=== PATIENT | female | born 1980 | race Caucasian/White ===

== ENCOUNTER 2017-07-05 21:18 | Inpatient (IN) | payer OTHER ==
--- NOTE | 2017-07-05 21:16 | HP ---
COWS - Scale Resting Pulse: 0= MA 80 or Below Sweatin=Flushed/Facial Moisture Restless Observation: 1= Difficult to Sit Still Pupil Size: 1= Pupils >than Normal Bone or Joint Aches: 2= Severe Diffuse Aches Runny Nose/ Eye Tearin= Constantly Teary/Runny GI Upset > 30mins: 2= Nausea/Diarrhea (diarrhea x 3, no vomiting) Tremor Observation: 2= Slight Tremor Visible Yawning Observation: 0= None Anxiety or Irritability: 4=Extreme Anxiety Goose Flesh Skin: 0=Smooth Skin COWS Score: 18 Admission [facility] Chief Complaint: Opiate withdrawal symptoms Allergies/Adverse Reactions: Allergies Allergy/AdvReac Type Severity Reaction Status Date / Time No Known Drug Allergies Allergy Verified 06/02/17 18:38 erythromycin base AdvReac Severe Vomiting Verified 06/02/17 18:38 History of Present Illness: 36 years old female with a long history of opiate, sedative and hypnotic dependence is admitted to detox. Patient has been in previous detox, last was at [facility] 06/02/2017. Patient has medical history of AIDS (last CD4 count was 31) , Hep C, anemia, chlamydia, anxiety and depression. Denies suicidal ideation at this time. Patient on Methadone therapy at [facility] and methadone dose is 70mg tablet oral daily. As per patient, last day medicated with methadone was 2016 and the dose was 70mg. Dose is yet to be confirmed by the nurse. Patient appears dehydrated with poor skin turgor and dry mucous membrane. Exam Limitations: No Limitations - Ebola screening Have you traveled outside of the country in the last 21 days: No Have you had contact with anyone from an Ebola affected area: No Have you been sick,other than usual withdrawal symptoms: No - Review of Systems Constitutional: Chills, Loss of Appetite, Malaise, Night Sweats, Changes in sleep, Weakness EENT: reports: Tearing, Nose Congestion, Sinus Pressure Respiratory: reports: No Symptoms reported Cardiac: reports: No Symptoms Reported GI: reports: Diarrhea (x 3), Poor Appetite, Poor Fluid Intake, Abdominal cramping : reports: No Symptoms Reported Musculoskeletal: reports: Back Pain, Muscle Pain, Muscle Weakness Integumentary: reports: Dryness, Flushing Neuro: reports: Headache, Tingling, Tremors, Weakness Endocrine: reports: Flushing Hematology: reports: Anemia Psychiatric: reports: Agitated, Anxious, Depressed Other Systems: Reviewed and Negative Patient History - Patient Medical History Hx Anemia: Yes Hx Asthma: No Hx Chronic Obstructive Pulmonary Disease (COPD): No Hx Cancer: No Hx Cardiac Disorders: No Hx Congestive Heart Failure: No Hx Hypertension: No Hx Hypercholesterolemia: No Hx Pacemaker: No HX Cerebrovascular Accident: No Hx Seizures: No Hx Dementia: No Hx Diabetes: No Hx Gastrointestinal Disorders: No Hx Liver Disease: Yes (Hep C) Hx Genitourinary Disorders: No Hx Sexually Transmitted Disorders: Yes (AIDS, Chlamydia) Hx Renal Disease (ESRD): No Hx Thyroid Disease: No Hx Human Immunodeficiency Virus (HIV): Yes (diagnosed September 2014) Hx Hepatitis C: Yes (Not treated) Hx Depression: Yes Hx Suicide Attempt: No (Denies suicidal ideation) Hx Bipolar Disorder: No Hx Schizophrenia: No - Patient Surgical History Past Surgical History: Yes Hx Neurologic Surgery: No Hx Cataract Extraction: No Hx Cardiac Surgery: No Hx Lung Surgery: No Hx Breast Surgery: No Hx Breast Biopsy: No Hx Abdominal Surgery: No Hx Appendectomy: Yes (Surgery 03/29) Hx Cholecystectomy: No Hx Genitourinary Surgery: No Hx Section: No Hx Orthopedic Surgery: No Hx Hysterectomy: No Anesthesia Reaction: No - PPD History Previous Implant?: Yes Documented Results: Negative w/proof Implanted On Prior [facility] Admission?: Yes Date: 06/04/17 PPD to be Administered?: No - Reproductive History Patient is a Female of Child Bearing Age (11 -55 yrs old): Yes Last Menstrual Period: 06/28/17 Patient : No - Smoking Cessation Smoking history: Current every day smoker Have you smoked in the past 12 months: Yes Aproximately how many cigarettes per day: 10 Cigars Per Day: 0 Hx Chewing Tobacco Use: No Initiated information on smoking cessation: Yes 'Breaking Loose' booklet given: 07/05/17 - Substance & Tx. History Hx Alcohol Use: No Hx Substance Use: Yes Substance Use Type: Cocaine, Heroin, Opiates Hx Substance Use Treatment: Yes ([facility] 05/2017) - Substances Abused Benzodiazepine (Klonopin) Route: Oral Frequency: Daily Amount used: 8-12mg Age of first use: 30 Date of Last Use: 07/05/17 Alprazolam (Xanax) Route: Oral Frequency: Daily Amount used: 6-8mg Age of first use: 30 Date of Last Use: 07/04/17 Cocaine Route: Injection Frequency: Daily Amount used: 4 bags Age of first use: 21 Date of Last Use: 07/05/17 Family Disease History - Family Disease History Family Disease History: CA: Mother (Breast Ca and Hep C), Other: Father (HIV, ), Mother Admission Physical Exam [facility] - Physical General Appearance: Yes: Moderate Distress, Tremorous, Irritable, Sweating, Anxious HEENTM: Yes: EOMI, Normal Voice, BRIEN Respiratory: Yes: Lungs Clear, Normal Breath Sounds, No Respiratory Distress Neck: Yes: Supple, Other Breast: Yes: Breast Exam Deferred Cardiology: Yes: Regular Rhythm, Regular Rate, S1, S2 Abdominal: Yes: Normal Bowel Sounds, Soft Genitourinary: Yes: Within Normal Limits Back: Yes: Normal Inspection Musculoskeletal: Yes: Back pain, Muscle Pain, Muscle weakness Extremities: Yes: Tremors, Swelling (left hand from iv drug injection) Neurological: Yes: Alert, Normal Mood/Affect Integumentary: Yes: Dry, Track Sanchez Lymphatic: Yes: Within Normal Limits - Addiitonal Findings: neck and left hand - Diagnostic (1) Hep C w/o coma, chronic Current Visit: No Status: Chronic (2) AIDS Current Visit: No Status: Chronic (3) Nicotine dependence Current Visit: No Status: Chronic Qualifiers: Nicotine product type: cigarettes Substance use status: in withdrawal Qualified Code(s): F17.213 - Nicotine dependence, cigarettes, with withdrawal (4) Sedative, hypnotic or anxiolytic dependence with withdrawal, uncomplicated Current Visit: No Status: Chronic (5) Methadone maintenance therapy patient Current Visit: No Status: Chronic Comment: 40 mg verification pending (6) Depression (emotion) Current Visit: No Status: Chronic Qualifiers: Depression Type: dysthymia Qualified Code(s): F34.1 - Dysthymic disorder Cleared for Admission [facility] - Detox or Rehab [facility] Level of Care: Medically Managed Detox Regimen/Protocol: Valium [facility] Breath Alcohol Content Breath Alcohol Content: 0 Vital Signs - Vital Signs Vital Signs Refused: No Temperature Source: Oral Pulse Rate: 78 Respiratory Rate: 17 Blood Pressure: 118/75 BP Location: Left Arm Blood Pressure Position: Sitting - Height Height: 5 ft 5 in - Weight Weight: 151 lb Weight Measurement Method: Standing Scale Body Mass Index (BMI): 25.1 Urine Pregancy Test - Test Device Lot Number: [id number] Expiration Date: 02/09/19 - Control Horizontal Line in Upper Control Window?: No - Result Urine Test Results: Negative- NO Line Present Urine Drug Screen - Test Device Lot Number: [id number] Expiration Date: 04/11/19 - Control Is Test Valid: Yes - Results Drug Screen Negative: No Urine Drug Screen Results: BERNADETTE-Cocaine, OPI-Opiates, BZO-Benzodiazepines, MTD- Methadone, OXY-Oxycodone
[2017-07-05] MEDS ORDERED: NICOTINE POLACRILEX 2 MG GUM BC PRN (21:50)
[2017-07-05] MEDS ORDERED: P-EPHED 60MG/TRIPROLIDI 2.5MG TABLET PO PRN (21:50)
[2017-07-05] MEDS ORDERED: MAG HYDROX/AL HYDROX/SIMETH 30 ML UNIT-DOSE CUP PO PRN (21:50)
[2017-07-05] MEDS ORDERED: MENTHOL/PHENOL 1 EACH UD MM PRN (21:50)
[2017-07-05] MEDS ORDERED: LOPERAMIDE HCL 2 MG CAPSULE PO PRN (21:50)
[2017-07-05] MEDS ORDERED: diazePAM 5 MG TABLET PO ONE (21:50)
[2017-07-05] MEDS ORDERED: MAGNESIUM HYDROX 2400MG/30ML ORAL SUSPENSION 30 ML CUP PO PRN (21:50)
[2017-07-05] MEDS ORDERED: guaiFENesin/D-METHORPHAN HB 10 ML UNIT-DOSE CUPS PO PRN (21:50)
[2017-07-05] MEDS ORDERED: MAGNESIUM CITRATE 300 ML BOTTLE PO PRN (21:50)
[2017-07-05 22:02] VITALS: BMI 25.1
[2017-07-05] MEDS: diazePAM 5 MG TABLET PO SCH (22:55)
[2017-07-06] MEDS: diazePAM 5 MG TABLET PO SCH ×4 (00:40→22:12)
[2017-07-06] MEDS: THIAMINE HCL 100 MG TABLET (FP) PO SCH ×2 (00:41→22:12)
[2017-07-06] MEDS ORDERED: AZITHROMYCIN 600 MG TABLET PO SCH (10:00)
[2017-07-06] MEDS: PRENATAL VITAMINS W/ FOLIC ACID TABLET (FP) PO SCH (10:10)
[2017-07-06] MEDS: NICOTINE 14 MG/24 HOURS TOPICAL PATCH TD SCH (10:10)
[2017-07-06] MEDS: SULFAMETHOXAZOLE/TRIMETHOPRIM 800MG/160MG D.S. TABLET PO SCH (10:12)
[2017-07-06] MEDS ORDERED: METHADONE HCL 10 MG TABLET PO ONE (10:19)
--- NOTE | 2017-07-06 10:27 | PN ---
S CIWA - CIWA Score Nausea/Vomitin Muscle Tremors: 2 Anxiety: 3 Agitation: 2 Paroxysmal Sweats: 3 Orientation: 0-Oriented Tacttile Disturbances: 2-Mild Itch/Numbness/Burn Auditory Disturbances: 0-None Visual Disturbances: 0-None Headache: 0-None Present CIWA-Ar Total Score: 14 BHS Progress Note (SOAP) Subjective: interrupted sleep, sweats, achy Objective: 07/06/17 10:23 Vital Signs Temperature 97.2 F L 07/06/17 09:58 Pulse Rate 85 07/06/17 09:58 Respiratory Rate 18 07/06/17 09:58 Blood Pressure 100/89 07/06/17 09:58 O2 Sat by Pulse Oximetry (%) pending labs 07/06/17 10:24 pt aox3 restless Assessment: 07/06/17 10:24 withdrawal sx's \ aids otp 07/06/17 10:27 Plan: cont. detox increase fluids methadone 70mg /d ( pt has bottle from [facility] date dose 70mg/d will offically verify dose in am with OTP)
[2017-07-06] MEDS ORDERED: METHADONE 40 MG, METHADONE 30 MG PO ONE (11:10)
[2017-07-06] MEDS ORDERED: METHADONE HCL 40 MG DISPERSABLE TABLET ONE (11:14)
[2017-07-06] MEDS ORDERED: METHADONE HCL 10 MG TABLET ONE (11:14)
--- NOTE | 2017-07-06 11:16 | CONSULT ---
[facility] Psychiatric Consult - Data Date of interview: 07/06/17 Admission source: [facility] Identifying data: This is 36 years old female with psychiatric hospitalization history intoxicated with: Methadone, Xanax and Nicotine Substance Abuse History: Smoking history: Current every day smoker. Have you smoked in the past 12 months: Yes. Aproximately how many cigarettes per day: 10. Cigars Per Day: 0. Hx Chewing Tobacco Use: No. Initiated information on smoking cessation: Yes. 'Breaking Loose' booklet given: 07/05/17. - Substance & Tx. History. Hx Alcohol Use: No. Hx Substance Use: Yes. Substance Use Type : Cocaine, Heroin, Opiates. Hx Substance Use Treatment: Yes ([facility] 05/2017). - Substances Abused. Benzodiazepine (Klonopin). Route: Oral. Frequency: Daily. Amount used: 8-12mg. Age of first use: 30. Date of Last Use: . Alprazolam (Xanax). Route: Oral. Frequency: Daily. Amount used: 6- 8mg. Age of first use: 30. Date of Last Use: 07/04/17. Cocaine. Route: Injection. Frequency: Daily. Amount used: 4 bags. Age of first use: 21. Date of Last Use: 07/05/17 Medical History: HepC+, AIDs, MMTP 70mg /day Psychiatric History: Patient reports history of depression, reports unclear psychiatric admission on morer then 10 years ago Physical/Sexual Abuse/Trauma History: Denies Additional Comment: Observation. Detox Unit Care Protocol Mental Status Exam - Mental Status Exam Alert and Oriented to: Person Patient Appearance: Unkempt Mood: Sad Affect: Mood Congruent Patient Behavior: Cooperative Speech Pattern: Appropriate Voice Loudness: Normal Thought Process: Circumstantial Thought Disorder: Being Controlled Hallucinations: Denies Suicidal Ideation: Denies Homicidal Ideation: Denies Insight/Judgement: Fair Sleep: Difficulty falling asleep Appetite: Weight loss Muscle strength/Tone: Mild Hypotonicity Gait/Station: Shuffling Additional Comments: Observation. Detox Unit Care Protocol Psychiatric Findings - Problem List ([place] 1, 2,3) (1) Depression (emotion) Current Visit: No Status: Chronic Qualifiers: Depression Type: dysthymia Qualified Code(s): F34.1 - Dysthymic disorder (2) Methadone maintenance therapy patient Current Visit: No Status: Chronic Comment: 40 mg verification pending (3) Nicotine dependence Current Visit: No Status: Chronic Qualifiers: Nicotine product type: cigarettes Substance use status: in withdrawal Qualified Code(s): F17.213 - Nicotine dependence, cigarettes, with withdrawal (4) Sedative, hypnotic or anxiolytic dependence with withdrawal, uncomplicated Current Visit: No Status: Chronic (5) Drug-induced mood disorder Current Visit: No Status: Suspected - Initial Treatment Plan Initial Treatment Plan: Observation. Detox Unit Care Protocol
[2017-07-06 11:25] LABS: MCH 31.4 pg (25.7-33.7); MCHC 32.5 g/dl (32.0-36.0); MEAN CELL VOLUME 96.5 fl (80-96); MEAN PLT VOLUME 7.8 fl (7.5-11.1); PLATELET COUNT 240 K/MM3 (134-434); RDW 17.7 % (11.6-15.6); WHITE BLOOD COUNT 4.4 K/mm3 (4.0-10.0)
[2017-07-06 11:39] LABS: ALBUMIN 3.1 g/dl (3.4-5.0); ANION GAP 7 (8-16); CALCIUM 8.3 mg/dL (8.5-10.1); CO2 29 mmol/L (21-32); GLUCOSE,RANDOM 99 mg/dL (74-106)
[2017-07-06 11:43] LABS: ALK PHOS 75 U/L (45-117); BILIRUBIN,TOTAL 0.4 mg/dL (0.2-1.0); CREATININE 0.8 mg/dL (0.55-1.02); SGOT/AST 44 U/L (15-37); SGPT/ALT 54 U/L (12-78); TOT PROT 6.6 g/dl (6.4-8.2)
[2017-07-06] MEDS: EMTRICITABINE/TENOFOV ALAFENAM (DESCOVY) TABLET PO SCH (11:48)
[2017-07-06] MEDS: DOLUTEGRAVIR SODIUM 50 MG TABLET PO SCH (11:48)
[2017-07-06] MEDS: IBUPROFEN 400 MG TABLET (FP) PO PRN (14:09)
[2017-07-07] MEDS: diazePAM 5 MG TABLET PO PRN ×2 (02:54→15:36)
[2017-07-07] MEDS ORDERED: METHADONE HCL 40 MG DISPERSABLE TABLET PO SCH (06:00)
[2017-07-07] MEDS ORDERED: METHADONE HCL 10 MG TABLET PO SCH (09:00)
[2017-07-07] MEDS ORDERED: METHADONE HCL 40 MG DISPERSABLE TABLET ONE (09:21)
[2017-07-07] MEDS ORDERED: METHADONE HCL 10 MG TABLET ONE (09:22)
[2017-07-07] MEDS: IBUPROFEN 400 MG TABLET (FP) PO PRN ×3 (09:30→22:13)
[2017-07-07] MEDS ORDERED: AZITHROMYCIN 600 MG TABLET PO SCH (10:00)
[2017-07-07] MEDS: PRENATAL VITAMINS W/ FOLIC ACID TABLET (FP) PO SCH (10:10)
[2017-07-07] MEDS: diazePAM 5 MG TABLET PO SCH ×2 (10:10→22:11)
[2017-07-07] MEDS: NICOTINE 14 MG/24 HOURS TOPICAL PATCH TD SCH (10:10)
[2017-07-07] MEDS: METHADONE 40 MG, METHADONE 30 MG PO SCH (10:10)
[2017-07-07] MEDS: SULFAMETHOXAZOLE/TRIMETHOPRIM 800MG/160MG D.S. TABLET PO SCH (10:10)
[2017-07-07] MEDS: DOLUTEGRAVIR SODIUM 50 MG TABLET PO SCH (10:11)
[2017-07-07] MEDS: EMTRICITABINE/TENOFOV ALAFENAM (DESCOVY) TABLET PO SCH (10:11)
[2017-07-07] MEDS: ACETAMINOPHEN 325 MG TABLET (FP) PO PRN ×2 (11:51→19:19)
--- NOTE | 2017-07-07 13:21 | EKG ---
Test Reason : Blood Pressure : / mmHG Vent. Rate : 065 BPM Atrial Rate : 065 BPM P-R Int : 158 ms QRS Dur : 124 ms QT Int : 458 ms P-R-T Axes : 048 036 034 degrees QTc Int : 476 ms NORMAL SINUS RHYTHM NON-SPECIFIC INTRA-VENTRICULAR CONDUCTION DELAY BORDERLINE ECG WHEN COMPARED WITH ECG OF 06-JUL-2017 00:04, NO SIGNIFICANT CHANGE WAS FOUND Confirmed by MD Girish, Pastor ([id number]) on 07/07/2017 1:21:02 PM Referred By: Сергей White Confirmed By:aPstor Stout MD
--- NOTE | 2017-07-07 13:47 | PN ---
S CIWA - CIWA Score Nausea/Vomitin-Int. Nausea w/Dry Heave Muscle Tremors: None Anxiety: 4-Mod. Anxious/Guarded Agitation: 4-Moderately Restless Paroxysmal Sweats: 3 Orientation: 0-Oriented Tacttile Disturbances: 0-None Auditory Disturbances: 0-None Visual Disturbances: 0-None Headache: 3-Moderate CIWA-Ar Total Score: 18 BHS Progress Note (SOAP) Subjective: Sweating, headache, legs hurt, nausea, interrupted sleep Objective: 07/07/17 13:43 Last Vital Signs Temp Pulse Resp BP Pulse Ox 97.5 F L 75 18 117/67 07/07/17 11:05 07/07/17 11:05 07/07/17 11:05 07/07/17 11:05 Laboratory Tests 07/06/17 07/06/17 07/06/17 07:45 07:45 07:45 WBC 4.4 RBC 3.57 L Hgb 11.2 Hct 34.5 MCV 96.5 H MCH 31.4 MCHC 32.5 RDW 17.7 H D Plt Count 240 MPV 7.8 Sodium 142 Potassium 3.7 Chloride 106 Carbon Dioxide 29 Anion Gap 7 L BUN 6 L D Creatinine 0.8 Creat Clearance w eGFR > 60 Random Glucose 99 Calcium 8.3 L Total Bilirubin 0.4 D AST 44 H D ALT 54 D Alkaline Phosphatase 75 Total Protein 6.6 Albumin 3.1 L RPR Titer Nonreactive Labs noted Assessment: 07/07/17 13:43 Withdrawal symptoms Plan: Continue detox Methadone 70mg PO daily (MMTP) resumed Encouraged to drink lots of water
[2017-07-07 15:23] LABS: URINE APPEARANCE SLCLOUDY; URINE BILIRUBIN NEGATIVE (NEGATIVE); URINE BLOOD 3+ (NEGATIVE); URINE COLOR YELLOW; URINE GLUCOSE (UA) NEGATIVE (NEGATIVE); URINE KETONE NEGATIVE (NEGATIVE); URINE LEUK ESTERASE TRACE (NEGATIVE); URINE NITRITE NEGATIVE (NEGATIVE); URINE PROTEIN NEGATIVE (NEGATIVE)
[2017-07-07 15:59] LABS: URINE BACTERIA RARE /hpf (NONE SEEN); URINE MUCUS RARE; URINE RBC 27 /hpf (0-3); URINE WBC 6 /hpf (3-5)
[2017-07-07 20:49] LABS: URINE LEUK ESTERASE Negative (NEGATIVE)
[2017-07-07] MEDS: THIAMINE HCL 100 MG TABLET (FP) PO SCH (22:11)
[2017-07-08] MEDS ORDERED: METHADONE HCL 10 MG TABLET ONE (07:38)
[2017-07-08] MEDS ORDERED: METHADONE HCL 40 MG DISPERSABLE TABLET ONE (07:38)
[2017-07-08] MEDS: METHADONE 40 MG, METHADONE 30 MG PO SCH (07:40)
[2017-07-08] MEDS: diazePAM 5 MG TABLET PO PRN (07:43)
[2017-07-08] MEDS: IBUPROFEN 400 MG TABLET (FP) PO PRN (07:44)
--- NOTE | 2017-07-08 08:37 | PN ---
BHS Progress Note (SOAP) Subjective: nausea, sweats, interrupted sleep, anxeity, tremors Objective: 07/08/17 08:36 Vital Signs - 24 hr 07/07/17 07/07/17 07/07/17 11:05 14:00 17:00 Temperature 97.5 F L 97.5 F L 98.1 F Pulse Rate 75 72 77 Respiratory 18 18 16 Rate Blood Pressure 117/67 103/74 109/70 07/07/17 07/08/17 07/08/17 22:36 00:30 03:30 Temperature 98.2 F Pulse Rate 73 Respiratory 18 18 18 Rate Blood Pressure 119/72 07/08/17 05:38 Temperature 97.7 F Pulse Rate 66 Respiratory 16 Rate Blood Pressure 109/64 Laboratory Tests 07/06/17 07/06/17 07/06/17 00:32 07:45 07:45 WBC 4.4 RBC 3.57 L Hgb 11.2 Hct 34.5 MCV 96.5 H MCH 31.4 MCHC 32.5 RDW 17.7 H D Plt Count 240 MPV 7.8 Sodium 142 Potassium 3.7 Chloride 106 Carbon Dioxide 29 Anion Gap 7 L BUN 6 L D Creatinine 0.8 Creat Clearance w eGFR > 60 Random Glucose 99 Calcium 8.3 L Total Bilirubin 0.4 D AST 44 H D ALT 54 D Alkaline Phosphatase 75 Total Protein 6.6 Albumin 3.1 L Urine Color Yellow Urine Appearance Slcloudy Urine pH 7.0 Ur Specific [place] 1.011 Urine Protein Negative Urine Glucose (UA) Negative Urine Ketones Negative Urine Blood 3+ H Urine Nitrite Negative Urine Bilirubin Negative Urine Urobilinogen 2.0 H Ur Leukocyte Esterase Negative Urine WBC (Auto) 6 Urine RBC (Auto) 27 Ur Epithelial Cells Few Urine Bacteria Rare Urine Mucus Rare RPR Titer 07/06/17 07:45 WBC RBC Hgb Hct MCV MCH MCHC RDW Plt Count MPV Sodium Potassium Chloride Carbon Dioxide Anion Gap BUN Creatinine Creat Clearance w eGFR Random Glucose Calcium Total Bilirubin AST ALT Alkaline Phosphatase Total Protein Albumin Urine Color Urine Appearance Urine pH Ur Specific [place] Urine Protein Urine Glucose (UA) Urine Ketones Urine Blood Urine Nitrite Urine Bilirubin Urine Urobilinogen Ur Leukocyte Esterase Urine WBC (Auto) Urine RBC (Auto) Ur Epithelial Cells Urine Bacteria Urine Mucus RPR Titer Nonreactive Assessment: 07/08/17 08:37 withdrawal sx, cont detox, fluids, encourage ambulation, d/c prn medications
[2017-07-08] MEDS ORDERED: diazePAM 5 MG TABLET PO PRN (09:46)
[2017-07-08] MEDS ORDERED: PANTOPRAZOLE 40 MG TABLET (FP) PO SCH (10:00)
[2017-07-08] MEDS: EMTRICITABINE/TENOFOV ALAFENAM (DESCOVY) TABLET PO SCH (10:15)
[2017-07-08] MEDS: DOLUTEGRAVIR SODIUM 50 MG TABLET PO SCH (10:15)
[2017-07-08] MEDS: NICOTINE 14 MG/24 HOURS TOPICAL PATCH TD SCH (10:16)
[2017-07-08] MEDS: diazePAM 5 MG TABLET PO SCH ×2 (10:16→22:04)
[2017-07-08] MEDS: NAPROXEN 500 MG TABLET (FP) PO SCH ×2 (10:16→22:04)
[2017-07-08] MEDS: PRENATAL VITAMINS W/ FOLIC ACID TABLET (FP) PO SCH (10:16)
[2017-07-08] MEDS: SULFAMETHOXAZOLE/TRIMETHOPRIM 800MG/160MG D.S. TABLET PO SCH (10:16)
[2017-07-08] MEDS: ACETAMINOPHEN 325 MG TABLET (FP) PO PRN ×2 (10:21→17:27)
[2017-07-08] MEDS: GABAPENTIN 100 MG CAPSULE (FP) PO SCH ×2 (14:01→22:04)
[2017-07-08] MEDS: THIAMINE HCL 100 MG TABLET (FP) PO SCH (22:04)
[2017-07-09] MEDS ORDERED: METHADONE HCL 40 MG DISPERSABLE TABLET ONE (05:29)
[2017-07-09] MEDS ORDERED: METHADONE HCL 10 MG TABLET ONE (05:29)
[2017-07-09 06:07] VITALS: BP 105/64; PULSE 69; TEMP 97.9
[2017-07-09] MEDS: GABAPENTIN 100 MG CAPSULE (FP) PO SCH (06:26)
[2017-07-09] MEDS: METHADONE 40 MG, METHADONE 30 MG PO SCH (06:26)
[2017-07-09] MEDS: ACETAMINOPHEN 325 MG TABLET (FP) PO PRN (06:28)
[2017-07-09] MEDS ORDERED: diazePAM 5 MG TABLET PO SCH (10:00)
--- NOTE | 2017-07-09 12:09 | DS ---
[facility] Detox Discharge Summary Admission Date: 07/05/17 Discharge Date: 07/09/17 - History Present History: Cocaine Dependence, Sedative Dependence, MMTP Pertinent Past History: AIDS Hepatitis C Anemia - Physical Exam Results Vital Signs: Vital Signs Temperature 97.9 F 07/09/17 06:07 Pulse Rate 69 07/09/17 06:07 Respiratory Rate 16 07/09/17 06:07 Blood Pressure 105/64 07/09/17 06:07 O2 Sat by Pulse Oximetry (%) Pertinent Admission Physical Exam Findings: Withdrawal symptoms Laboratory Tests 07/06/17 07/06/17 07/06/17 00:32 07:45 07:45 WBC 4.4 RBC 3.57 L Hgb 11.2 Hct 34.5 MCV 96.5 H MCH 31.4 MCHC 32.5 RDW 17.7 H D Plt Count 240 MPV 7.8 Sodium 142 Potassium 3.7 Chloride 106 Carbon Dioxide 29 Anion Gap 7 L BUN 6 L D Creatinine 0.8 Creat Clearance w eGFR > 60 Random Glucose 99 Calcium 8.3 L Total Bilirubin 0.4 D AST 44 H D ALT 54 D Alkaline Phosphatase 75 Total Protein 6.6 Albumin 3.1 L Urine Color Yellow Urine Appearance Slcloudy Urine pH 7.0 Ur Specific [place] 1.011 Urine Protein Negative Urine Glucose (UA) Negative Urine Ketones Negative Urine Blood 3+ H Urine Nitrite Negative Urine Bilirubin Negative Urine Urobilinogen 2.0 H Ur Leukocyte Esterase Negative Urine WBC (Auto) 6 Urine RBC (Auto) 27 Ur Epithelial Cells Few Urine Bacteria Rare Urine Mucus Rare RPR Titer 07/06/17 07:45 WBC RBC Hgb Hct MCV MCH MCHC RDW Plt Count MPV Sodium Potassium Chloride Carbon Dioxide Anion Gap BUN Creatinine Creat Clearance w eGFR Random Glucose Calcium Total Bilirubin AST ALT Alkaline Phosphatase Total Protein Albumin Urine Color Urine Appearance Urine pH Ur Specific [place] Urine Protein Urine Glucose (UA) Urine Ketones Urine Blood Urine Nitrite Urine Bilirubin Urine Urobilinogen Ur Leukocyte Esterase Urine WBC (Auto) Urine RBC (Auto) Ur Epithelial Cells Urine Bacteria Urine Mucus RPR Titer Nonreactive Labs noted: 3+ blood in UA (encouraged to drink lots of water, follow up with PCP within 1 week for further evaluation) - Treatment Hospital Course: Detox Protocol Followed, Detoxed Safely, Responded well, Discharged Condition Good - Medication Discharge Medications: Ambulatory Orders Azithromycin 1,200 mg PO WEEKLY 06/02/17 Docusate Sodium [Colace -] 300 mg PO HS 06/02/17 Dolutegravir Sodium [Tivicay] 50 mg PO DAILY 06/02/17 Emtricitabine/Tenofov Alafenam [Descovy 200-25 mg Tablet (Nf)] 1 each PO DAILY 06/02/17 Sulfamethoxazole/Trimethoprim [Bactrim DS -] 1 tab PO DAILY 06/02/17 Methadone [Dolophine -] 70 mg PO DAILY@0600 tablet MDD 70 07/08/17 - Diagnosis (1) Cocaine dependence Status: Chronic (2) Anemia Status: Chronic (3) AIDS Status: Chronic (4) Depression (emotion) Status: Chronic Qualifiers: Depression Type: dysthymia Qualified Code(s): F34.1 - Dysthymic disorder (5) Hep C w/o coma, chronic Status: Chronic (6) Methadone maintenance therapy patient Status: Chronic (7) Nicotine dependence Status: Chronic Qualifiers: Nicotine product type: cigarettes Substance use status: in withdrawal Qualified Code(s): F17.213 - Nicotine dependence, cigarettes, with withdrawal (8) Sedative, hypnotic or anxiolytic dependence with withdrawal, uncomplicated Status: Acute (9) Microscopic hematuria Status: Acute - AMA Did Patient Leave Against Medical Advice: No (F/U with PCP within 1 week )
== END 2017-07-09 07:40 | disposition home or self-care (01) | DRG 773 ==
LOC: YASAS 21:18 → Y6N 21:19
PROVIDERS: ADMIT Internal Medicine; ATTEND Internal Medicine
PROC: HZ2ZZZZ Detoxification Services for Substance Abuse Treatment (ICD-10-PCS; principal; 2017-07-05)
DX: F11.20 Opioid dependence, uncomplicated (principal); F14.20 Cocaine dependence, uncomplicated; F17.213 Nicotine dependence, cigarettes, with withdrawal; F34.1 Dysthymic disorder; F19.24 Other psychoactive substance dependence with psychoactive substance-induced mood disorder; D64.9 Anemia, unspecified; B20 Human immunodeficiency virus [HIV] disease; B18.2 Chronic viral hepatitis C; R31.29 Other microscopic hematuria; K08.89 Other specified disorders of teeth and supporting structures; Z88.1 Allergy status to other antibiotic agents; Z87.42 Personal history of other diseases of the female genital tract
CPT/HCPCS: 36415; 80053; 81003; 81015; 85027; 86593; 93005; 93010

== ENCOUNTER 2017-11-20 10:40 | Inpatient (IN) | payer BC, OTHER ==
[2017-11-20 11:46] VITALS: BMI 24.7
--- NOTE | 2017-11-20 14:53 | HP ---
CIWA Score - CIWA Score Nausea/Vomitin Muscle Tremors: 3 Anxiety: 3 Agitation: 3 Paroxysmal Sweats: 1-Minimal Palms Moist Orientation: 0-Oriented Tacttile Disturbances: 1-Very Mild Itch/Numbness Auditory Disturbances: 1-Very Mild Visual Disturbances: 0-None Headache: 2-Mild CIWA-Ar Total Score: 17 Admission ROS BHS - HPI Chief Complaint: i need help to stop using klonopin,xanax cocaine,herorin,mmtp 70 mgs/day,last medicated syncope last 2 weeks ago hepatitis c hiv positive since 2014,non compliance,last medications 2 months ago weight loss 10 lbs nicotine dependence anxiety,depression longest period of sobriety 1 year Allergies/Adverse Reactions: Allergies Allergy/AdvReac Type Severity Reaction Status Date / Time No Known Drug Allergies Allergy Verified 11/20/17 15:55 erythromycin base AdvReac Severe Vomiting Verified 11/20/17 12:19 History of Present Illness: 37 years old female with xanax,klonopin,ccoained,dependence with heroin abused, mmtp 70 mgs/day last medicated 11/18/17, last detox [facility] in 07/30 requested detox Exam Limitations: No Limitations - Ebola screening Have you traveled outside of the country in the last 21 days: No Have you been sick,other than usual withdrawal symptoms: No - Review of Systems Constitutional: Malaise, Night Sweats, Unintentional Wgt. Loss EENT: reports: Tearing, Nose Congestion Respiratory: reports: No Symptoms reported Cardiac: reports: No Symptoms Reported GI: reports: Nausea, Vomiting, Abdominal cramping : reports: No Symptoms Reported Musculoskeletal: reports: Muscle Pain Integumentary: reports: Dryness, Sweating Neuro: reports: Headache, Tremors Endocrine: reports: No Symptoms Reported Hematology: reports: No Symptoms Reported, Anemia, Other (hiv since 2014) Patient History - Patient Medical History Hx Anemia: Yes (no med) Hx Asthma: No Hx Chronic Obstructive Pulmonary Disease (COPD): No Hx Cancer: No Hx Cardiac Disorders: No Hx Congestive Heart Failure: No Hx Hypertension: No Hx Hypercholesterolemia: No Hx Pacemaker: No HX Cerebrovascular Accident: No Hx Seizures: No Hx Dementia: No Hx Diabetes: No Hx Gastrointestinal Disorders: No Hx Liver Disease: Yes (Hep C) Hx Genitourinary Disorders: No Hx Sexually Transmitted Disorders: Yes (chlamydia) Hx Renal Disease (ESRD): No Hx Thyroid Disease: No Hx Human Immunodeficiency Virus (HIV): Yes (diagnosed September 2014) Hx Hepatitis C: Yes (Not treated) Hx Depression: Yes (anxiety) Hx Suicide Attempt: No Hx Bipolar Disorder: No Hx Schizophrenia: No Other Medical History: no suicidal,no homicidal - Patient Surgical History Past Surgical History: Yes Hx Neurologic Surgery: No Hx Cataract Extraction: No Hx Cardiac Surgery: No Hx Lung Surgery: No Hx Breast Surgery: No Hx Breast Biopsy: No Hx Abdominal Surgery: No Hx Appendectomy: Yes (03/2017) Hx Cholecystectomy: No Hx Genitourinary Surgery: No Hx Section: No Hx Orthopedic Surgery: No Hx Hysterectomy: No Anesthesia Reaction: No - PPD History Previous Implant?: Yes Implanted On Prior [facility] Admission?: Yes Date: 06/04/17 Results: 0 mm PPD to be Administered?: No - Reproductive History Patient is a Female of Child Bearing Age (11 -55 yrs old): Yes Last Menstrual Period: 11/10/17 Patient : No - Smoking Cessation Smoking history: Current every day smoker Have you smoked in the past 12 months: Yes Aproximately how many cigarettes per day: 10 Cigars Per Day: 0 Hx Chewing Tobacco Use: No Initiated information on smoking cessation: Yes 'Breaking Loose' booklet given: 11/20/17 - Substance & Tx. History Hx Alcohol Use: No Hx Substance Use: Yes Substance Use Type: Cocaine, Heroin, Tranquilizers Hx Substance Use Treatment: Yes (marleny sotelo 07/30) - Substances Abused Cocaine Route: Injection Frequency: Daily Amount used: $40 Age of first use: 17 Date of Last Use: 11/19/17 Heroin Route: Injection Frequency: Daily Amount used: 10 bags Age of first use: 28 Date of Last Use: 11/19/17 Xanax or Klonopin Route: Oral Frequency: Daily Amount used: 8 mg./16 mg. Age of first use: 30 Family Disease History - Family Disease History Family Disease History: CA: Mother (Breast Ca and Hep C), Other: Father (HIV, ), Mother, Brother () Admission Physical Exam BHS - Vital Signs Vital Signs: Vital Signs - 24 hr 11/20/17 11:30 Temperature 97.8 F Pulse Rate 79 Respiratory 20 Rate Blood Pressure 105/66 - Physical General Appearance: Yes: Moderate Distress, Tremorous, Irritable, Sweating, Anxious HEENTM: Yes: Normal ENT Inspection, BRIEN, Pharynx Normal Respiratory: Yes: Lungs Clear, Normal Breath Sounds, No Respiratory Distress Neck: Yes: Within Normal Limits, Supple, Trachea in good position Breast: Yes: Breast Exam Deferred Cardiology: Yes: Within Normal Limits, Regular Rhythm, Regular Rate, S1, S2 Abdominal: Yes: Within Normal Limits, Normal Bowel Sounds, Non Tender, Soft, Other (s/p lap appendectomy) Genitourinary: Yes: Within Normal Limits Back: Yes: Muscle Spasm Musculoskeletal: Yes: Back pain, Muscle Pain Extremities: Yes: Tremors Neurological: Yes: barrel centerer II-XII NML intact, Alert, Motor Strength 5/5 Integumentary: Yes: Dry Lymphatic: Yes: Within Normal Limits - Diagnostic (1) Sedative, hypnotic or anxiolytic dependence with withdrawal, uncomplicated Current Visit: No Status: Acute (2) Weight loss Current Visit: No Status: Acute (3) AIDS Current Visit: No Status: Chronic (4) Anemia Current Visit: No Status: Chronic (5) Cocaine dependence Current Visit: No Status: Chronic (6) Methadone maintenance therapy patient Current Visit: No Status: Chronic Comment: 40 mg verification pending (7) Nicotine dependence Current Visit: No Status: Chronic Qualifiers: Nicotine product type: cigarettes Substance use status: in withdrawal Qualified Code(s): F17.213 - Nicotine dependence, cigarettes, with withdrawal (8) Anxiety and depression Current Visit: Yes Status: Acute Cleared for Admission [facility] - Detox or Rehab [facility] Level of Care: Medically Managed Detox Regimen/Protocol: Valium [facility] Breath Alcohol Content Breath Alcohol Content: 0 Urine Pregancy Test - Result Urine Test Results: Negative- NO Line Present Urine Drug Screen - Results Drug Screen Negative: No Urine Drug Screen Results: BERNADETTE-Cocaine, OPI-Opiates, BZO-Benzodiazepines, MTD- Methadone, OXY-Oxycodone
[2017-11-20] MEDS ORDERED: MAG HYDROX/AL HYDROX/SIMETH 30 ML UNIT-DOSE CUP PO PRN (15:11)
[2017-11-20] MEDS ORDERED: LOPERAMIDE HCL 2 MG CAPSULE PO PRN (15:11)
[2017-11-20] MEDS ORDERED: P-EPHED 60MG/TRIPROLIDI 2.5MG TABLET PO PRN (15:11)
[2017-11-20] MEDS ORDERED: diazePAM 5 MG TABLET PO PRN (15:11)
[2017-11-20] MEDS ORDERED: IBUPROFEN 400 MG TABLET (FP) PO PRN (15:11)
[2017-11-20] MEDS ORDERED: MENTHOL/PHENOL 1 EACH UD MM PRN (15:11)
[2017-11-20] MEDS ORDERED: MAGNESIUM HYDROX 2400MG/30ML ORAL SUSPENSION 30 ML CUP PO PRN (15:11)
[2017-11-20] MEDS ORDERED: MAGNESIUM CITRATE 300 ML BOTTLE PO PRN (15:11)
[2017-11-20] MEDS ORDERED: NICOTINE POLACRILEX 2 MG GUM BUC PRN (15:11)
[2017-11-20] MEDS ORDERED: ACETAMINOPHEN 325 MG TABLET (FP) PO PRN (15:11)
[2017-11-20] MEDS ORDERED: guaiFENesin/D-METHORPHAN HB 10 ML UNIT-DOSE CUPS PO PRN (15:11)
[2017-11-20] MEDS ORDERED: hydrOXYzine PAMOATE 25 MG CAPSULE (FP) PO PRN (15:11)
[2017-11-20] MEDS ORDERED: METHADONE HCL 10 MG TABLET PO SCH (16:15)
[2017-11-20] MEDS ORDERED: diazePAM 5 MG TABLET PO ONE (16:15)
[2017-11-20] MEDS ORDERED: MELATONIN 5 MG TABLETS PO PRN (22:00)
[2017-11-20] MEDS: diazePAM 5 MG TABLET PO SCH (22:14)
[2017-11-20] MEDS: THIAMINE HCL 100 MG TABLET (FP) PO SCH (22:14)
[2017-11-21] MEDS ORDERED: METHADONE HCL 10 MG TABLET ONE (06:29)
[2017-11-21] MEDS ORDERED: METHADONE HCL 40 MG DISPERSABLE TABLET ONE (06:29)
[2017-11-21] MEDS: METHADONE 40 MG, METHADONE 30 MG PO SCH (07:14)
[2017-11-21] MEDS: diazePAM 5 MG TABLET PO SCH ×3 (07:15→23:24)
--- NOTE | 2017-11-21 09:23 | EKG ---
Test Reason : Blood Pressure : / mmHG Vent. Rate : 053 BPM Atrial Rate : 053 BPM P-R Int : 162 ms QRS Dur : 122 ms QT Int : 502 ms P-R-T Axes : 050 031 019 degrees QTc Int : 471 ms SINUS BRADYCARDIA NON-SPECIFIC INTRA-VENTRICULAR CONDUCTION DELAY BORDERLINE ECG WHEN COMPARED WITH ECG OF 06-JUL-2017 00:05, NO SIGNIFICANT CHANGE WAS FOUND Confirmed by MARK CRENSHAW, REYNA ([id number]) on 11/21/2017 9:22:54 AM Referred By: Mini Cummings Confirmed By:REYNA FLORES MD
[2017-11-21 10:11] LABS: HEMATOCRIT 34.3 % (32.4-45.2); HEMOGLOBIN 11.8 GM/dL (10.7-15.3); MCH 31.2 pg (25.7-33.7); MCHC 34.4 g/dl (32.0-36.0); MEAN CELL VOLUME 90.7 fl (80-96); MEAN PLT VOLUME 9.7 fl (7.5-11.1); PLATELET COUNT 188 K/MM3 (134-434); RBC 3.78 M/mm3 (3.60-5.2); RDW 13.3 % (11.6-15.6); WHITE BLOOD COUNT 3.3 K/mm3 (4.0-10.0)
[2017-11-21 10:12] LABS: URINE APPEARANCE SLCLOUDY; URINE BILIRUBIN NEGATIVE (<2.0 mg/dL); URINE COLOR YELLOW; URINE GLUCOSE (UA) NEGATIVE (NEGATIVE); URINE KETONE NEGATIVE (NEGATIVE); URINE LEUK ESTERASE TRACE (NEGATIVE); URINE NITRITE NEGATIVE (NEGATIVE); URINE PROTEIN NEGATIVE (NEGATIVE)
[2017-11-21 10:23] LABS: EPI CELLS MODERATE /HPF (FEW); URINE MUCUS RARE
[2017-11-21 10:34] LABS: CHLORIDE 104 mmol/L (98-107); POTASSIUM 4.1 mmol/L (3.5-5.1); SODIUM 140 mmol/L (136-145)
[2017-11-21] MEDS: SULFAMETHOXAZOLE/TRIMETHOPRIM 800MG/160MG D.S. TABLET PO SCH (10:43)
[2017-11-21] MEDS: PRENATAL VITAMINS W/ FOLIC ACID TABLET (FP) PO SCH (10:43)
[2017-11-21 10:55] LABS: ALBUMIN 3.6 g/dl (3.4-5.0); ALK PHOS 71 U/L (45-117); ANION GAP 7 (8-16); BILIRUBIN,TOTAL 0.3 mg/dL (0.2-1.0); BLOOD UREA NITROGEN 6 mg/dL (7-18); CALCIUM 8.6 mg/dL (8.5-10.1); CO2 29 mmol/L (21-32); CREATININE 0.8 mg/dL (0.55-1.02); GLUCOSE,RANDOM 106 mg/dL (74-106); SGOT/AST 26 U/L (15-37); SGPT/ALT 17 U/L (12-78); TOT PROT 8.2 g/dl (6.4-8.2)
--- NOTE | 2017-11-21 14:04 | CONSULT ---
[facility] Psychiatric Consult - Data Date of interview: 11/21/17 Admission source: [facility] Identifying data: Patient is approached at bedside for the requested psychiatric interview.Ms Bill refused." I told them that I did not need psychiatrists." Nursing staff is made aware.
--- NOTE | 2017-11-21 15:38 | EKG ---
Test Reason : Blood Pressure : / mmHG Vent. Rate : 052 BPM Atrial Rate : 052 BPM P-R Int : 156 ms QRS Dur : 112 ms QT Int : 468 ms P-R-T Axes : 035 018 035 degrees QTc Int : 435 ms SINUS BRADYCARDIA OTHERWISE NORMAL ECG WHEN COMPARED WITH ECG OF 20-NOV-2017 17:06, NO SIGNIFICANT CHANGE WAS FOUND Confirmed by REYNA FLORES MD ([id number]) on 11/21/2017 3:37:45 PM Referred By: Mini Cummings Confirmed By:REYNA FLORES MD
--- NOTE | 2017-11-21 16:19 | PN ---
S CIWA - CIWA Score Nausea/Vomitin Muscle Tremors: 3 Anxiety: 3 Agitation: 3 Paroxysmal Sweats: 2 Orientation: 0-Oriented Tacttile Disturbances: 1-Very Mild Itch/Numbness Auditory Disturbances: 1-Very Mild Visual Disturbances: 0-None Headache: 2-Mild CIWA-Ar Total Score: 18 S Progress Note (SOAP) Subjective: ALERT,IRRITABLE,ANXIOUS,INTERRUPTED SLEEP,TREMOR,PAIN IN THE BODY Objective: 11/21/17 16:19 Vital Signs Temperature 98.1 F 11/21/17 14:00 Pulse Rate 55 L 11/21/17 14:00 Respiratory Rate 16 11/21/17 14:00 Blood Pressure 100/60 11/21/17 14:00 O2 Sat by Pulse Oximetry (%) 11/21/17 16:21 EKG SINUS BRADYCARDIA,52/MIN PROLONG QT 468/435 NO CHEST PAIN,NO SOB,NO DIZZINESS 11/21/17 16:22 Laboratory Last Values WBC 3.3 K/mm3 (4.0-10.0) L 11/21/17 06:10 RBC 3.78 M/mm3 (3.60-5.2) 11/21/17 06:10 Hgb 11.8 GM/dL (10.7-15.3) 11/21/17 06:10 Hct 34.3 % (32.4-45.2) 11/21/17 06:10 MCV 90.7 fl (80-96) 11/21/17 06:10 MCH 31.2 pg (25.7-33.7) 11/21/17 06:10 MCHC 34.4 g/dl (32.0-36.0) 11/21/17 06:10 RDW 13.3 % (11.6-15.6) D 11/21/17 06:10 Plt Count 188 K/MM3 (134-434) D 11/21/17 06:10 MPV 9.7 fl (7.5-11.1) D 11/21/17 06:10 Sodium 140 mmol/L (136-145) 11/21/17 06:10 Potassium 4.1 mmol/L (3.5-5.1) 11/21/17 06:10 Chloride 104 mmol/L (98-107) 11/21/17 06:10 Carbon Dioxide 29 mmol/L (21-32) 11/21/17 06:10 Anion Gap 7 (8-16) L 11/21/17 06:10 BUN 6 mg/dL (7-18) L 11/21/17 06:10 Creatinine 0.8 mg/dL (0.55-1.02) 11/21/17 06:10 Creat Clearance w eGFR > 60 (>60) 11/21/17 06:10 Random Glucose 106 mg/dL (74-106) 11/21/17 06:10 Calcium 8.6 mg/dL (8.5-10.1) 11/21/17 06:10 Total Bilirubin 0.3 mg/dL (0.2-1.0) D 11/21/17 06:10 AST 26 U/L (15-37) 11/21/17 06:10 ALT 17 U/L (12-78) 11/21/17 06:10 Alkaline Phosphatase 71 U/L (45-117) 11/21/17 06:10 Total Protein 8.2 g/dl (6.4-8.2) 11/21/17 06:10 Albumin 3.6 g/dl (3.4-5.0) 11/21/17 06:10 Urine Color Yellow 11/21/17 08:00 Urine Appearance Slcloudy 11/21/17 08:00 Urine pH 7.0 (5.0-8.0) 11/21/17 08:00 Ur Specific [place] 1.015 (1.001-1.035) 11/21/17 08:00 Urine Protein Negative (NEGATIVE) 11/21/17 08:00 Urine Glucose (UA) Negative (NEGATIVE) 11/21/17 08:00 Urine Ketones Negative (NEGATIVE) 11/21/17 08:00 Urine Blood Negative (NEGATIVE) 11/21/17 08:00 Urine Nitrite Negative (NEGATIVE) 11/21/17 08:00 Urine Bilirubin Negative (<2.0 mg/dL) 11/21/17 08:00 Urine Urobilinogen 2.0 mg/dL (0.2-1.0) H 11/21/17 08:00 Ur Leukocyte Esterase Trace (NEGATIVE) 11/21/17 08:00 Urine WBC (Auto) 2 /hpf (3-5) 11/21/17 08:00 Urine RBC (Auto) <1 /hpf (0-3) 11/21/17 08:00 Ur Epithelial Cells Moderate /HPF (FEW) 11/21/17 08:00 Urine Mucus Rare 11/21/17 08:00 RPR Titer Nonreactive (NONREACTIVE) 11/21/17 06:10 Assessment: 11/21/17 16:22 WITHDRAWAL SYMPTOM Plan: CONTINUE DETOX
[2017-11-21] MEDS: THIAMINE HCL 100 MG TABLET (FP) PO SCH (23:25)
[2017-11-22] MEDS ORDERED: METHADONE HCL 40 MG DISPERSABLE TABLET ONE (05:03)
[2017-11-22] MEDS ORDERED: METHADONE HCL 10 MG TABLET ONE (05:03)
[2017-11-22] MEDS: METHADONE 40 MG, METHADONE 30 MG PO SCH (06:17)
[2017-11-22] MEDS: SULFAMETHOXAZOLE/TRIMETHOPRIM 800MG/160MG D.S. TABLET PO SCH (10:40)
[2017-11-22] MEDS: PRENATAL VITAMINS W/ FOLIC ACID TABLET (FP) PO SCH (10:40)
[2017-11-22] MEDS: diazePAM 5 MG TABLET PO SCH ×2 (10:40→22:43)
[2017-11-22] MEDS ORDERED: BISACODYL 5 MG TABLET.DR (FP) PO ONE (11:45)
--- NOTE | 2017-11-22 17:13 | PN ---
S CIWA - CIWA Score Nausea/Vomitin Muscle Tremors: 4-Moderate,w/Arms Extend Anxiety: 3 Agitation: 3 Paroxysmal Sweats: 3 Orientation: 0-Oriented Tacttile Disturbances: 1-Very Mild Itch/Numbness Auditory Disturbances: 0-None Visual Disturbances: 0-None Headache: 1-Very Mild CIWA-Ar Total Score: 18 BHS Progress Note (SOAP) Subjective: Constipation, chills, headache Objective: 11/22/17 17:12 Last Vital Signs Temp Pulse Resp BP Pulse Ox 97.5 F L 74 16 101/58 11/22/17 16:23 11/22/17 16:23 11/22/17 16:23 11/22/17 16:23 Laboratory Tests 11/21/17 11/21/17 11/21/17 06:10 06:10 06:10 WBC 3.3 L RBC 3.78 Hgb 11.8 Hct 34.3 MCV 90.7 MCH 31.2 MCHC 34.4 RDW 13.3 D Plt Count 188 D MPV 9.7 D Sodium 140 Potassium 4.1 Chloride 104 Carbon Dioxide 29 Anion Gap 7 L BUN 6 L Creatinine 0.8 Creat Clearance w eGFR > 60 Random Glucose 106 Calcium 8.6 Total Bilirubin 0.3 D AST 26 ALT 17 Alkaline Phosphatase 71 Total Protein 8.2 Albumin 3.6 Urine Color Urine Appearance Urine pH Ur Specific [place] Urine Protein Urine Glucose (UA) Urine Ketones Urine Blood Urine Nitrite Urine Bilirubin Urine Urobilinogen Ur Leukocyte Esterase Urine WBC (Auto) Urine RBC (Auto) Ur Epithelial Cells Urine Mucus RPR Titer Nonreactive 11/21/17 08:00 WBC RBC Hgb Hct MCV MCH MCHC RDW Plt Count MPV Sodium Potassium Chloride Carbon Dioxide Anion Gap BUN Creatinine Creat Clearance w eGFR Random Glucose Calcium Total Bilirubin AST ALT Alkaline Phosphatase Total Protein Albumin Urine Color Yellow Urine Appearance Slcloudy Urine pH 7.0 Ur Specific [place] 1.015 Urine Protein Negative Urine Glucose (UA) Negative Urine Ketones Negative Urine Blood Negative Urine Nitrite Negative Urine Bilirubin Negative Urine Urobilinogen 2.0 H Ur Leukocyte Esterase Trace Urine WBC (Auto) 2 Urine RBC (Auto) <1 Ur Epithelial Cells Moderate Urine Mucus Rare RPR Titer Labs reviewed Assessment: 11/22/17 17:13 Withdrawal symptoms Plan: Continue detox Dulcolax 10mg PO x 1 dose Encouraged PO hydration (water)
[2017-11-22] MEDS: THIAMINE HCL 100 MG TABLET (FP) PO SCH (22:43)
[2017-11-23] MEDS ORDERED: METHADONE HCL 10 MG TABLET ONE (04:45)
[2017-11-23] MEDS ORDERED: METHADONE HCL 40 MG DISPERSABLE TABLET ONE (04:45)
[2017-11-23] MEDS: METHADONE 40 MG, METHADONE 30 MG PO SCH (07:04)
--- NOTE | 2017-11-23 09:52 | PN ---
BHS Progress Note (SOAP) Subjective: feeling better no tremor less sweat tolerate food and fluid well Objective: 11/23/17 09:54 Vital Signs Temperature 98.3 F 11/23/17 08:07 Pulse Rate 66 11/23/17 08:07 Respiratory Rate 18 11/23/17 08:07 Blood Pressure 110/67 11/23/17 08:07 O2 Sat by Pulse Oximetry (%) Laboratory Last Values WBC 3.3 K/mm3 (4.0-10.0) L 11/21/17 06:10 RBC 3.78 M/mm3 (3.60-5.2) 11/21/17 06:10 Hgb 11.8 GM/dL (10.7-15.3) 11/21/17 06:10 Hct 34.3 % (32.4-45.2) 11/21/17 06:10 MCV 90.7 fl (80-96) 11/21/17 06:10 MCH 31.2 pg (25.7-33.7) 11/21/17 06:10 MCHC 34.4 g/dl (32.0-36.0) 11/21/17 06:10 RDW 13.3 % (11.6-15.6) D 11/21/17 06:10 Plt Count 188 K/MM3 (134-434) D 11/21/17 06:10 MPV 9.7 fl (7.5-11.1) D 11/21/17 06:10 Sodium 140 mmol/L (136-145) 11/21/17 06:10 Potassium 4.1 mmol/L (3.5-5.1) 11/21/17 06:10 Chloride 104 mmol/L (98-107) 11/21/17 06:10 Carbon Dioxide 29 mmol/L (21-32) 11/21/17 06:10 Anion Gap 7 (8-16) L 11/21/17 06:10 BUN 6 mg/dL (7-18) L 11/21/17 06:10 Creatinine 0.8 mg/dL (0.55-1.02) 11/21/17 06:10 Creat Clearance w eGFR > 60 (>60) 11/21/17 06:10 Random Glucose 106 mg/dL (74-106) 11/21/17 06:10 Calcium 8.6 mg/dL (8.5-10.1) 11/21/17 06:10 Total Bilirubin 0.3 mg/dL (0.2-1.0) D 11/21/17 06:10 AST 26 U/L (15-37) 11/21/17 06:10 ALT 17 U/L (12-78) 11/21/17 06:10 Alkaline Phosphatase 71 U/L (45-117) 11/21/17 06:10 Total Protein 8.2 g/dl (6.4-8.2) 11/21/17 06:10 Albumin 3.6 g/dl (3.4-5.0) 11/21/17 06:10 Urine Color Yellow 11/21/17 08:00 Urine Appearance Slcloudy 11/21/17 08:00 Urine pH 7.0 (5.0-8.0) 11/21/17 08:00 Ur Specific [place] 1.015 (1.001-1.035) 11/21/17 08:00 Urine Protein Negative (NEGATIVE) 11/21/17 08:00 Urine Glucose (UA) Negative (NEGATIVE) 11/21/17 08:00 Urine Ketones Negative (NEGATIVE) 11/21/17 08:00 Urine Blood Negative (NEGATIVE) 11/21/17 08:00 Urine Nitrite Negative (NEGATIVE) 11/21/17 08:00 Urine Bilirubin Negative (<2.0 mg/dL) 11/21/17 08:00 Urine Urobilinogen 2.0 mg/dL (0.2-1.0) H 11/21/17 08:00 Ur Leukocyte Esterase Trace (NEGATIVE) 11/21/17 08:00 Urine WBC (Auto) 2 /hpf (3-5) 11/21/17 08:00 Urine RBC (Auto) <1 /hpf (0-3) 11/21/17 08:00 Ur Epithelial Cells Moderate /HPF (FEW) 11/21/17 08:00 Urine Mucus Rare 11/21/17 08:00 RPR Titer Nonreactive (NONREACTIVE) 11/21/17 06:10 lab noted Assessment: 11/23/17 09:54 mild withdrawal sx Plan: medically supervised detox
[2017-11-23] MEDS: diazePAM 5 MG TABLET PO SCH ×2 (11:18→22:44)
[2017-11-23] MEDS: SULFAMETHOXAZOLE/TRIMETHOPRIM 800MG/160MG D.S. TABLET PO SCH (11:18)
[2017-11-23] MEDS: PRENATAL VITAMINS W/ FOLIC ACID TABLET (FP) PO SCH (11:18)
[2017-11-23] MEDS: THIAMINE HCL 100 MG TABLET (FP) PO SCH (22:44)
[2017-11-24] MEDS ORDERED: METHADONE HCL 40 MG DISPERSABLE TABLET ONE (04:41)
[2017-11-24] MEDS ORDERED: METHADONE HCL 10 MG TABLET ONE (04:41)
[2017-11-24] MEDS: METHADONE 40 MG, METHADONE 30 MG PO SCH (05:48)
[2017-11-24 09:05] VITALS: BP 112/65; PULSE 81; TEMP 97.9
[2017-11-24] MEDS: SULFAMETHOXAZOLE/TRIMETHOPRIM 800MG/160MG D.S. TABLET PO SCH (09:56)
[2017-11-24] MEDS: PRENATAL VITAMINS W/ FOLIC ACID TABLET (FP) PO SCH (09:56)
[2017-11-24] MEDS ORDERED: diazePAM 5 MG TABLET PO SCH (10:00)
--- NOTE | 2017-11-24 10:12 | DS ---
[facility] Detox Discharge Summary Admission Date: 11/20/17 Discharge Date: 11/24/17 - History Present History: Sedative Dependence Additional Comments: 37 years old female admitted on 11/20/17 for benzos withdrawal sx completed benzos detox regimen tolerated well denies benzos withdrawal sx alert oriented x 3 no acute distress wants to go to [place] [facility] for recovery - Physical Exam Results Vital Signs: Vital Signs Temperature 97.9 F 11/24/17 09:04 Pulse Rate 81 11/24/17 09:04 Respiratory Rate 16 11/24/17 09:04 Blood Pressure 112/65 11/24/17 09:04 O2 Sat by Pulse Oximetry (%) Pertinent Admission Physical Exam Findings: withdrawal sx Vital Signs Temperature 97.9 F 11/24/17 09:04 Pulse Rate 81 11/24/17 09:04 Respiratory Rate 16 11/24/17 09:04 Blood Pressure 112/65 11/24/17 09:04 O2 Sat by Pulse Oximetry (%) Laboratory Last Values WBC 3.3 K/mm3 (4.0-10.0) L 11/21/17 06:10 RBC 3.78 M/mm3 (3.60-5.2) 11/21/17 06:10 Hgb 11.8 GM/dL (10.7-15.3) 11/21/17 06:10 Hct 34.3 % (32.4-45.2) 11/21/17 06:10 MCV 90.7 fl (80-96) 11/21/17 06:10 MCH 31.2 pg (25.7-33.7) 11/21/17 06:10 MCHC 34.4 g/dl (32.0-36.0) 11/21/17 06:10 RDW 13.3 % (11.6-15.6) D 11/21/17 06:10 Plt Count 188 K/MM3 (134-434) D 11/21/17 06:10 MPV 9.7 fl (7.5-11.1) D 11/21/17 06:10 Sodium 140 mmol/L (136-145) 11/21/17 06:10 Potassium 4.1 mmol/L (3.5-5.1) 11/21/17 06:10 Chloride 104 mmol/L (98-107) 11/21/17 06:10 Carbon Dioxide 29 mmol/L (21-32) 11/21/17 06:10 Anion Gap 7 (8-16) L 11/21/17 06:10 BUN 6 mg/dL (7-18) L 11/21/17 06:10 Creatinine 0.8 mg/dL (0.55-1.02) 11/21/17 06:10 Creat Clearance w eGFR > 60 (>60) 11/21/17 06:10 Random Glucose 106 mg/dL (74-106) 11/21/17 06:10 Calcium 8.6 mg/dL (8.5-10.1) 11/21/17 06:10 Total Bilirubin 0.3 mg/dL (0.2-1.0) D 11/21/17 06:10 AST 26 U/L (15-37) 11/21/17 06:10 ALT 17 U/L (12-78) 11/21/17 06:10 Alkaline Phosphatase 71 U/L (45-117) 11/21/17 06:10 Total Protein 8.2 g/dl (6.4-8.2) 11/21/17 06:10 Albumin 3.6 g/dl (3.4-5.0) 11/21/17 06:10 Urine Color Yellow 11/21/17 08:00 Urine Appearance Slcloudy 11/21/17 08:00 Urine pH 7.0 (5.0-8.0) 11/21/17 08:00 Ur Specific [place] 1.015 (1.001-1.035) 11/21/17 08:00 Urine Protein Negative (NEGATIVE) 11/21/17 08:00 Urine Glucose (UA) Negative (NEGATIVE) 11/21/17 08:00 Urine Ketones Negative (NEGATIVE) 11/21/17 08:00 Urine Blood Negative (NEGATIVE) 11/21/17 08:00 Urine Nitrite Negative (NEGATIVE) 11/21/17 08:00 Urine Bilirubin Negative (<2.0 mg/dL) 11/21/17 08:00 Urine Urobilinogen 2.0 mg/dL (0.2-1.0) H 11/21/17 08:00 Ur Leukocyte Esterase Trace (NEGATIVE) 11/21/17 08:00 Urine WBC (Auto) 2 /hpf (3-5) 11/21/17 08:00 Urine RBC (Auto) <1 /hpf (0-3) 11/21/17 08:00 Ur Epithelial Cells Moderate /HPF (FEW) 11/21/17 08:00 Urine Mucus Rare 11/21/17 08:00 RPR Titer Nonreactive (NONREACTIVE) 11/21/17 06:10 lab noted - Treatment Hospital Course: Detox Protocol Followed, Detoxed Safely, Responded well, Discharged Condition Good, Rehab Referral Accepted Patient has Accepted a Re[facility] Referral to: [facility] - Medication Discharge Medications: Ambulatory Orders Dolutegravir Sodium [Tivicay] 50 mg PO DAILY 06/02/17 Emtricitabine/Tenofov Alafenam [Descovy 200-25 mg Tablet (Nf)] 1 each PO DAILY 06/02/17 Sulfamethoxazole/Trimethoprim [Bactrim DS -] 1 tab PO DAILY 06/02/17 Methadone [Dolophine -] 70 mg PO DAILY@0600 tablet MDD 70 07/08/17 - Diagnosis (1) Nicotine dependence Current Visit: Yes Status: Acute Qualifiers: Nicotine product type: cigarettes Substance use status: in withdrawal Qualified Code(s): F17.213 - Nicotine dependence, cigarettes, with withdrawal (2) Sedative, hypnotic or anxiolytic dependence with withdrawal, uncomplicated Current Visit: Yes Status: Acute (3) AIDS Current Visit: Yes Status: Chronic (4) HIV (human immunodeficiency virus infection) Current Visit: Yes Status: Chronic (5) Hep C w/o coma, chronic Current Visit: No Status: Resolved - AMA Did Patient Leave Against Medical Advice: No
== END 2017-11-24 12:50 | disposition home or self-care (01) | DRG 773 ==
LOC: YASAS 10:40 → Y6N 13:19
PROVIDERS: ADMIT Surgery; ATTEND Surgery
PROC: HZ2ZZZZ Detoxification Services for Substance Abuse Treatment (ICD-10-PCS; principal; 2017-11-20)
DX: F13.230 Sedative, hypnotic or anxiolytic dependence with withdrawal, uncomplicated (principal); F11.20 Opioid dependence, uncomplicated; F14.20 Cocaine dependence, uncomplicated; F17.213 Nicotine dependence, cigarettes, with withdrawal; F41.8 Other specified anxiety disorders; B20 Human immunodeficiency virus [HIV] disease; B18.2 Chronic viral hepatitis C; K59.00 Constipation, unspecified; D64.9 Anemia, unspecified; R00.1 Bradycardia, unspecified; I45.81 Long QT syndrome; Z87.42 Personal history of other diseases of the female genital tract; Z87.898 Personal history of other specified conditions
CPT/HCPCS: 36415; 80053; 81003; 81015; 85027; 86593; 93005; 93010

== ENCOUNTER 2020-06-27 18:04 | Inpatient (IN) | payer OTHER ==
[2020-06-27 18:48] VITALS: BMI 24.4
[2020-06-27] MEDS ORDERED: MAGNESIUM HYDROX 2400MG/30ML ORAL SUSPENSION 30 ML CUP PO PRN (19:21)
[2020-06-27] MEDS ORDERED: IBUPROFEN 400 MG TABLET (FP) PO PRN (19:21)
[2020-06-27] MEDS ORDERED: DICYCLOMINE HCL 10 MG CAPSULE PO PRN (19:21)
[2020-06-27] MEDS ORDERED: guaiFENesin 200 MG/10 ML 10 ML UNIT-DOSE CUPS PO PRN (19:21)
[2020-06-27] MEDS ORDERED: P-EPHED 60MG/TRIPROLIDI 2.5MG TABLET PO PRN (19:21)
[2020-06-27] MEDS ORDERED: ONDANSETRON *ODT* 4 MG TABLET SL PRN (19:21)
[2020-06-27] MEDS ORDERED: MAG HYDROX/AL HYDROX/SIMETH 30 ML UNIT-DOSE CUP PO PRN (19:21)
[2020-06-27] MEDS ORDERED: BISMUTH SUBSALICYLATE 524 MG/30 ML UD PO PRN (19:21)
[2020-06-27] MEDS ORDERED: MENTHOL/PHENOL 1 EACH UD MM PRN (19:21)
[2020-06-27] MEDS ORDERED: ACETAMINOPHEN 325 MG TABLET (FP) PO PRN ×2 (19:21)
[2020-06-27] MEDS ORDERED: NICOTINE POLACRILEX 2 MG GUM BUC PRN (19:21)
[2020-06-27] MEDS ORDERED: MAGNESIUM CITRATE 300 ML BOTTLE PO PRN (19:21)
[2020-06-27] MEDS ORDERED: NALOXONE (NARCAN) HCL 4 MG/0.1 ML SPRAY NS PRN (19:24)
[2020-06-27] MEDS: DOCUSATE SODIUM 100 MG CAPSULE (FP) PO SCH (22:29)
[2020-06-27] MEDS: MELATONIN 5 MG TABLETS PO SCH (22:29)
[2020-06-27] MEDS: THIAMINE HCL 100 MG TABLET (FP) PO SCH (22:30)
[2020-06-28] MEDS: diazePAM 5 MG TABLET PO SCH ×4 (06:26→22:10)
[2020-06-28] MEDS: DOCUSATE SODIUM 100 MG CAPSULE (FP) PO SCH ×3 (06:29→22:09)
[2020-06-28] MEDS ORDERED: METHADONE 40 MG, METHADONE 10 MG PO ONE (09:40)
[2020-06-28] MEDS ORDERED: METHADONE HCL 10 MG TABLET PO ONE (09:40)
[2020-06-28] MEDS ORDERED: METHADONE HCL 10 MG TABLET ONE (10:08)
[2020-06-28] MEDS ORDERED: METHADONE HCL 40 MG DISPERSABLE TABLET ONE (10:08)
[2020-06-28] MEDS: PRENATAL VITAMINS W/ FOLIC ACID TABLET (FP) PO SCH (10:18)
[2020-06-28] MEDS: NICOTINE 14 MG/24 HOURS TOPICAL PATCH TD SCH (10:19)
[2020-06-28 10:57] LABS: HEMATOCRIT 33.6 % (32.4-45.2); HEMOGLOBIN 11.1 GM/dL (10.7-15.3); MCHC 32.9 g/dl (32.0-36.0); MEAN CELL VOLUME 97.5 fl (80-96); MEAN PLT VOLUME 9.2 fl (7.5-11.1); PLATELET COUNT 178 K/MM3 (134-434); RBC 3.45 M/mm3 (3.60-5.2); RDW 13.9 % (11.6-15.6); WHITE BLOOD COUNT 3.2 K/mm3 (4.0-10.0)
[2020-06-28 11:02] LABS: POTASSIUM 4.1 mmol/L (3.5-5.1)
[2020-06-28 11:05] LABS: ALBUMIN 3.6 g/dl (3.4-5.0); BLOOD UREA NITROGEN 15.3 mg/dL (7-18); CALCIUM 9.2 mg/dL (8.5-10.1)
[2020-06-28 11:10] LABS: BILIRUBIN,TOTAL 0.7 mg/dL (0.2-1); TOT PROT 9.3 g/dl (6.4-8.2)
[2020-06-28] MEDS: GABAPENTIN 300 MG CAPSULE PO SCH ×2 (15:11→22:09)
[2020-06-28] MEDS: FERROUS SO4 325 MG TABLET (FP) PO SCH (15:11)
[2020-06-28] MEDS: EMTRICITAB/RILPIVIRI/TENOF ALA (ODEFSEY) TABLET PO SCH (15:45)
[2020-06-28] MEDS: hydrOXYzine PAMOATE 25 MG CAPSULE (FP) PO PRN ×2 (17:44→22:09)
[2020-06-28] MEDS: THIAMINE HCL 100 MG TABLET (FP) PO SCH (22:09)
[2020-06-28] MEDS: SERTRALINE HCL 50 MG TABLET (FP) PO SCH (22:09)
[2020-06-28] MEDS: MELATONIN 5 MG TABLETS PO SCH (22:35)
[2020-06-29] MEDS ORDERED: METHADONE HCL 10 MG TABLET ONE (04:12)
[2020-06-29] MEDS ORDERED: METHADONE HCL 40 MG DISPERSABLE TABLET ONE (04:13)
[2020-06-29] MEDS ORDERED: METHADONE HCL 10 MG TABLET PO SCH (06:00)
[2020-06-29] MEDS ORDERED: METHADONE 40 MG, METHADONE 20 MG PO ONE (06:00)
[2020-06-29] MEDS: METHADONE 40 MG, METHADONE 20 MG PO SCH (06:13)
[2020-06-29] MEDS: diazePAM 5 MG TABLET PO SCH ×3 (06:14→22:25)
[2020-06-29] MEDS: DOCUSATE SODIUM 100 MG CAPSULE (FP) PO SCH ×3 (06:16→22:26)
[2020-06-29] MEDS: GABAPENTIN 300 MG CAPSULE PO SCH ×3 (06:17→22:25)
[2020-06-29] MEDS: EMTRICITAB/RILPIVIRI/TENOF ALA (ODEFSEY) TABLET PO SCH (08:00)
[2020-06-29] MEDS: ATOVAQUONE 750 MG/5 ML (UNIT-DOSE PACKAGING) PO SCH (08:01)
[2020-06-29] MEDS: METHOCARBAMOL 500 MG TABLET PO PRN ×2 (08:01→15:53)
[2020-06-29] MEDS: FERROUS SO4 325 MG TABLET (FP) PO SCH (09:33)
[2020-06-29] MEDS: diazePAM 5 MG TABLET PO PRN (09:34)
[2020-06-29] MEDS: PRENATAL VITAMINS W/ FOLIC ACID TABLET (FP) PO SCH (09:37)
[2020-06-29] MEDS: NICOTINE 14 MG/24 HOURS TOPICAL PATCH TD SCH (09:37)
[2020-06-29] MEDS: LACTULOSE 20 GM/30 ML UDC (FOR ORAL USE ONLY) PO SCH (09:44)
[2020-06-29] MEDS: LIDOCAINE 5% TOPICAL PATCH TP SCH (12:29)
[2020-06-29] MEDS: SERTRALINE HCL 50 MG TABLET (FP) PO SCH (22:25)
[2020-06-29] MEDS: THIAMINE HCL 100 MG TABLET (FP) PO SCH (22:25)
[2020-06-29] MEDS: MELATONIN 5 MG TABLETS PO SCH (22:26)
[2020-06-29] MEDS: LIDOCAINE PATCH REMOVAL MC SCH (22:37)
[2020-06-30] MEDS ORDERED: METHADONE HCL 10 MG TABLET ONE (04:37)
[2020-06-30] MEDS ORDERED: METHADONE HCL 40 MG DISPERSABLE TABLET ONE (04:38)
[2020-06-30] MEDS ORDERED: METHADONE HCL 10 MG TABLET PO SCH (06:00)
[2020-06-30] MEDS: diazePAM 5 MG TABLET PO SCH ×2 (06:01→17:23)
[2020-06-30] MEDS: DOCUSATE SODIUM 100 MG CAPSULE (FP) PO SCH ×3 (06:01→22:09)
[2020-06-30] MEDS: GABAPENTIN 300 MG CAPSULE PO SCH ×3 (06:01→22:09)
[2020-06-30] MEDS: METHADONE 40 MG, METHADONE 20 MG PO SCH (06:02)
[2020-06-30] MEDS: EMTRICITAB/RILPIVIRI/TENOF ALA (ODEFSEY) TABLET PO SCH (07:09)
[2020-06-30] MEDS: ATOVAQUONE 750 MG/5 ML (UNIT-DOSE PACKAGING) PO SCH (08:15)
[2020-06-30] MEDS: LACTULOSE 20 GM/30 ML UDC (FOR ORAL USE ONLY) PO SCH (10:16)
[2020-06-30] MEDS: FERROUS SO4 325 MG TABLET (FP) PO SCH (10:17)
[2020-06-30] MEDS: NICOTINE 14 MG/24 HOURS TOPICAL PATCH TD SCH (10:18)
[2020-06-30] MEDS: PRENATAL VITAMINS W/ FOLIC ACID TABLET (FP) PO SCH (10:18)
[2020-06-30] MEDS: LIDOCAINE 5% TOPICAL PATCH TP SCH (10:19)
[2020-06-30] MEDS: diazePAM 5 MG TABLET PO PRN (10:21)
[2020-06-30] MEDS: METHOCARBAMOL 500 MG TABLET PO PRN ×2 (10:21→17:23)
[2020-06-30 11:53] LABS: BASO % 0.6 % (0-2.0); EOS % 7.3 % (0-4.5); HEMATOCRIT 33.5 % (32.4-45.2); LYMPH % 36.8 % (8-40); MCH 32.2 pg (25.7-33.7); MCHC 32.9 g/dl (32.0-36.0); MEAN CELL VOLUME 97.8 fl (80-96); MEAN PLT VOLUME 9.6 fl (7.5-11.1); NEUT % 42.3 % (42.8-82.8); PLATELET COUNT 154 K/MM3 (134-434); RBC 3.43 M/mm3 (3.60-5.2); RDW 13.2 % (11.6-15.6); WHITE BLOOD COUNT 2.6 K/mm3 (4.0-10.0)
[2020-06-30 11:55] LABS: POTASSIUM 4.5 mmol/L (3.5-5.1)
[2020-06-30 11:59] LABS: ALBUMIN 3.3 g/dl (3.4-5.0); CALCIUM 8.8 mg/dL (8.5-10.1)
[2020-06-30 12:02] LABS: CREATININE 0.9 mg/dL (0.55-1.3)
[2020-06-30 12:04] LABS: BILIRUBIN,TOTAL 0.2 mg/dL (0.2-1); TOT PROT 8.4 g/dl (6.4-8.2)
[2020-06-30] MEDS: SERTRALINE HCL 50 MG TABLET (FP) PO SCH (22:09)
[2020-06-30] MEDS: MELATONIN 5 MG TABLETS PO SCH (22:09)
[2020-06-30] MEDS: THIAMINE HCL 100 MG TABLET (FP) PO SCH (22:09)
[2020-06-30] MEDS: LIDOCAINE PATCH REMOVAL MC SCH (22:10)
[2020-07-01] MEDS ORDERED: METHADONE HCL 40 MG DISPERSABLE TABLET ONE (04:45)
[2020-07-01] MEDS ORDERED: METHADONE HCL 10 MG TABLET ONE (04:45)
[2020-07-01] MEDS: DOCUSATE SODIUM 100 MG CAPSULE (FP) PO SCH ×2 (05:57→13:40)
[2020-07-01] MEDS: GABAPENTIN 300 MG CAPSULE PO SCH ×2 (05:57→13:40)
[2020-07-01] MEDS ORDERED: diazePAM 5 MG TABLET PO ONE (06:00)
[2020-07-01] MEDS ORDERED: METHADONE HCL 10 MG TABLET PO ONE (06:00)
[2020-07-01] MEDS ORDERED: METHADONE 40 MG, METHADONE 30 MG PO ONE (06:00)
[2020-07-01] MEDS: EMTRICITAB/RILPIVIRI/TENOF ALA (ODEFSEY) TABLET PO SCH (07:18)
[2020-07-01] MEDS: ATOVAQUONE 750 MG/5 ML (UNIT-DOSE PACKAGING) PO SCH (08:17)
[2020-07-01 09:01] VITALS: PULSE 76
[2020-07-01] MEDS: LACTULOSE 20 GM/30 ML UDC (FOR ORAL USE ONLY) PO SCH (10:16)
[2020-07-01] MEDS: hydrOXYzine PAMOATE 25 MG CAPSULE (FP) PO PRN (10:19)
[2020-07-01] MEDS: LIDOCAINE 5% TOPICAL PATCH TP SCH (10:19)
[2020-07-01] MEDS: METHOCARBAMOL 500 MG TABLET PO PRN (10:19)
[2020-07-01] MEDS: FERROUS SO4 325 MG TABLET (FP) PO SCH (10:19)
[2020-07-01] MEDS: NICOTINE 14 MG/24 HOURS TOPICAL PATCH TD SCH (10:21)
[2020-07-01] MEDS: PRENATAL VITAMINS W/ FOLIC ACID TABLET (FP) PO SCH (10:21)
[2020-07-01 13:18] VITALS: BP 91/55; TEMP 97.7
== END 2020-07-01 13:44 | disposition other institution (70) | DRG 773 ==
LOC: YASAS 18:04 → Y6N 19:15
PROVIDERS: ADMIT Allergy & Immunology; ATTEND Allergy & Immunology
PROC: HZ2ZZZZ Detoxification Services for Substance Abuse Treatment (ICD-10-PCS; principal; 2020-06-27)
DX: F13.230 Sedative, hypnotic or anxiolytic dependence with withdrawal, uncomplicated (principal); F11.20 Opioid dependence, uncomplicated; F14.20 Cocaine dependence, uncomplicated; F17.210 Nicotine dependence, cigarettes, uncomplicated; F41.9 Anxiety disorder, unspecified; F32.9 Major depressive disorder, single episode, unspecified; F43.10 Post-traumatic stress disorder, unspecified; F19.24 Other psychoactive substance dependence with psychoactive substance-induced mood disorder; B20 Human immunodeficiency virus [HIV] disease; D50.9 Iron deficiency anemia, unspecified; D72.819 Decreased white blood cell count, unspecified; K59.04 Chronic idiopathic constipation; R94.5 Abnormal results of liver function studies; R73.09 Other abnormal glucose; R00.0 Tachycardia, unspecified; R63.8 Other symptoms and signs concerning food and fluid intake; L90.5 Scar conditions and fibrosis of skin; Z88.1 Allergy status to other antibiotic agents; Z62.810 Personal history of physical and sexual abuse in childhood; Z91.410 Personal history of adult physical and sexual abuse; Z97.5 Presence of (intrauterine) contraceptive device; Z59.0 Homelessness
CPT/HCPCS: 36415; 80053; 81025; 85025; 85027; 86780; 93005; 93010; C9803; U0003

== ENCOUNTER 2020-07-01 13:10 | Inpatient (IN) | payer OTHER ==
[2020-07-01] MEDS ORDERED: ACETAMINOPHEN 325 MG TABLET (FP) PO PRN (15:20)
[2020-07-01] MEDS ORDERED: NICOTINE POLACRILEX 2 MG GUM BUC PRN (15:20)
[2020-07-01] MEDS ORDERED: LOPERAMIDE HCL 2 MG CAPSULE PO PRN (15:20)
[2020-07-01] MEDS ORDERED: MAGNESIUM HYDROX 2400MG/30ML ORAL SUSPENSION 30 ML CUP PO PRN (15:20)
[2020-07-01] MEDS ORDERED: MAGNESIUM CITRATE 300 ML BOTTLE PO PRN (15:20)
[2020-07-01] MEDS ORDERED: MAG HYDROX/AL HYDROX/SIMETH 30 ML UNIT-DOSE CUP PO PRN (15:20)
[2020-07-01] MEDS ORDERED: P-EPHED 60MG/TRIPROLIDI 2.5MG TABLET PO PRN (15:20)
[2020-07-01] MEDS ORDERED: MENTHOL/PHENOL 1 EACH UD MM PRN (15:20)
[2020-07-01] MEDS ORDERED: IBUPROFEN 400 MG TABLET (FP) PO PRN (15:20)
[2020-07-01] MEDS ORDERED: guaiFENesin 200 MG/10 ML 10 ML UNIT-DOSE CUPS PO PRN (15:20)
[2020-07-01] MEDS ORDERED: NALOXONE (NARCAN) HCL 4 MG/0.1 ML SPRAY NS PRN (15:31)
[2020-07-01] MEDS ORDERED: hydrOXYzine PAMOATE 25 MG CAPSULE (FP) PO PRN (18:00)
[2020-07-01] MEDS: THIAMINE HCL 100 MG TABLET (FP) PO SCH (21:24)
[2020-07-01] MEDS: MELATONIN 5 MG TABLETS PO SCH (21:24)
[2020-07-01] MEDS: LIDOCAINE PATCH REMOVAL MC SCH (21:24)
[2020-07-01] MEDS: GABAPENTIN 300 MG CAPSULE PO SCH (21:25)
[2020-07-01] MEDS: DOCUSATE SODIUM 100 MG CAPSULE (FP) PO SCH (21:25)
[2020-07-02] MEDS ORDERED: methaDONE HCL 10 MG TABLET PO ONE (06:00)
[2020-07-02] MEDS ORDERED: methaDONE 40 MG, methaDONE 30 MG PO ONE (06:00)
[2020-07-02] MEDS ORDERED: methaDONE HCL 10 MG TABLET ONE (06:33)
[2020-07-02] MEDS ORDERED: methaDONE HCL 40 MG DISPERSABLE TABLET ONE (06:33)
[2020-07-02] MEDS ORDERED: PT OWN MED DRAWER 7, Y5N ONE (06:34)
[2020-07-02] MEDS: DOCUSATE SODIUM 100 MG CAPSULE (FP) PO SCH ×3 (06:39→21:29)
[2020-07-02] MEDS: GABAPENTIN 300 MG CAPSULE PO SCH ×3 (06:39→21:29)
[2020-07-02] MEDS: EMTRICITAB/RILPIVIRI/TENOF ALA (ODEFSEY) TABLET PO SCH (07:04)
[2020-07-02] MEDS: ATOVAQUONE 750 MG/5 ML (UNIT-DOSE PACKAGING) PO SCH (09:53)
[2020-07-02] MEDS: LACTULOSE 20 GM/30 ML UDC (FOR ORAL USE ONLY) PO SCH (09:54)
[2020-07-02] MEDS: PRENATAL VITAMINS W/ FOLIC ACID TABLET (FP) PO SCH (09:55)
[2020-07-02] MEDS: NICOTINE 14 MG/24 HOURS TOPICAL PATCH TD SCH (09:55)
[2020-07-02] MEDS: FERROUS SO4 325 MG TABLET (FP) PO SCH (09:55)
[2020-07-02] MEDS: LIDOCAINE 5% TOPICAL PATCH TP SCH (10:07)
[2020-07-02] MEDS: THIAMINE HCL 100 MG TABLET (FP) PO SCH (21:28)
[2020-07-02] MEDS: LIDOCAINE PATCH REMOVAL MC SCH (21:29)
[2020-07-02] MEDS: MELATONIN 5 MG TABLETS PO SCH (21:29)
[2020-07-02] MEDS: SERTRALINE HCL 50 MG TABLET (FP) PO SCH (21:30)
[2020-07-02] MEDS: MIRTAZAPINE 15 MG TABLET (FP) PO SCH (21:31)
[2020-07-03] MEDS ORDERED: methaDONE HCL 10 MG TABLET PO SCH (06:00)
[2020-07-03] MEDS: methaDONE HCL 40 MG DISPERSABLE TABLET PO SCH (06:24)
[2020-07-03] MEDS: GABAPENTIN 300 MG CAPSULE PO SCH ×3 (06:24→21:13)
[2020-07-03] MEDS: DOCUSATE SODIUM 100 MG CAPSULE (FP) PO SCH ×3 (06:24→21:13)
[2020-07-03] MEDS: ATOVAQUONE 750 MG/5 ML (UNIT-DOSE PACKAGING) PO SCH (07:35)
[2020-07-03] MEDS: EMTRICITAB/RILPIVIRI/TENOF ALA (ODEFSEY) TABLET PO SCH (07:50)
[2020-07-03] MEDS ORDERED: PT OWN MED DRAWER 7, Y5N ONE (07:51)
[2020-07-03] MEDS: LIDOCAINE 5% TOPICAL PATCH TP SCH (09:52)
[2020-07-03] MEDS: PRENATAL VITAMINS W/ FOLIC ACID TABLET (FP) PO SCH (09:52)
[2020-07-03] MEDS: FERROUS SO4 325 MG TABLET (FP) PO SCH (09:52)
[2020-07-03] MEDS: LACTULOSE 20 GM/30 ML UDC (FOR ORAL USE ONLY) PO SCH (09:52)
[2020-07-03] MEDS: NICOTINE 14 MG/24 HOURS TOPICAL PATCH TD SCH (09:53)
[2020-07-03] MEDS: MIRTAZAPINE 15 MG TABLET (FP) PO SCH (21:13)
[2020-07-03] MEDS: THIAMINE HCL 100 MG TABLET (FP) PO SCH (21:13)
[2020-07-03] MEDS: MELATONIN 5 MG TABLETS PO SCH (21:13)
[2020-07-03] MEDS: SERTRALINE HCL 50 MG TABLET (FP) PO SCH (21:13)
[2020-07-03] MEDS: LIDOCAINE PATCH REMOVAL MC SCH (21:14)
[2020-07-04] MEDS: methaDONE HCL 40 MG DISPERSABLE TABLET PO SCH (06:20)
[2020-07-04] MEDS: GABAPENTIN 300 MG CAPSULE PO SCH ×3 (06:20→21:06)
[2020-07-04] MEDS: DOCUSATE SODIUM 100 MG CAPSULE (FP) PO SCH ×3 (06:20→21:06)
[2020-07-04] MEDS: ATOVAQUONE 750 MG/5 ML (UNIT-DOSE PACKAGING) PO SCH (07:48)
[2020-07-04] MEDS: EMTRICITAB/RILPIVIRI/TENOF ALA (ODEFSEY) TABLET PO SCH (07:49)
[2020-07-04] MEDS ORDERED: PT OWN MED DRAWER 7, Y5N ONE ×2 (08:01→14:35)
[2020-07-04] MEDS: FERROUS SO4 325 MG TABLET (FP) PO SCH (09:56)
[2020-07-04] MEDS: PRENATAL VITAMINS W/ FOLIC ACID TABLET (FP) PO SCH (09:57)
[2020-07-04] MEDS: LACTULOSE 20 GM/30 ML UDC (FOR ORAL USE ONLY) PO SCH (09:57)
[2020-07-04] MEDS: LIDOCAINE 5% TOPICAL PATCH TP SCH (09:58)
[2020-07-04] MEDS: NICOTINE 14 MG/24 HOURS TOPICAL PATCH TD SCH (09:58)
[2020-07-04] MEDS: THIAMINE HCL 100 MG TABLET (FP) PO SCH (21:05)
[2020-07-04] MEDS: MELATONIN 5 MG TABLETS PO SCH (21:05)
[2020-07-04] MEDS: LIDOCAINE PATCH REMOVAL MC SCH (21:06)
[2020-07-04] MEDS: SERTRALINE HCL 50 MG TABLET (FP) PO SCH (21:06)
[2020-07-04] MEDS: MIRTAZAPINE 15 MG TABLET (FP) PO SCH (21:06)
[2020-07-05] MEDS ORDERED: methaDONE HCL 10 MG TABLET ONE (04:22)
[2020-07-05] MEDS ORDERED: methaDONE HCL 40 MG DISPERSABLE TABLET ONE (04:22)
[2020-07-05] MEDS ORDERED: methaDONE HCL 10 MG TABLET PO SCH (06:00)
[2020-07-05] MEDS: methaDONE 80 MG, methaDONE 10 MG PO SCH (06:50)
[2020-07-05] MEDS: GABAPENTIN 300 MG CAPSULE PO SCH ×3 (06:50→21:17)
[2020-07-05] MEDS: DOCUSATE SODIUM 100 MG CAPSULE (FP) PO SCH ×3 (06:50→21:17)
[2020-07-05] MEDS: EMTRICITAB/RILPIVIRI/TENOF ALA (ODEFSEY) TABLET PO SCH (07:29)
[2020-07-05] MEDS: ATOVAQUONE 750 MG/5 ML (UNIT-DOSE PACKAGING) PO SCH (08:21)
[2020-07-05] MEDS ORDERED: PT OWN MED DRAWER 7, Y5N ONE (08:25)
[2020-07-05] MEDS: PRENATAL VITAMINS W/ FOLIC ACID TABLET (FP) PO SCH (10:00)
[2020-07-05] MEDS: LACTULOSE 20 GM/30 ML UDC (FOR ORAL USE ONLY) PO SCH (10:00)
[2020-07-05] MEDS: FERROUS SO4 325 MG TABLET (FP) PO SCH (10:00)
[2020-07-05] MEDS: LIDOCAINE 5% TOPICAL PATCH TP SCH (10:01)
[2020-07-05] MEDS: NICOTINE 14 MG/24 HOURS TOPICAL PATCH TD SCH (10:01)
[2020-07-05] MEDS: SERTRALINE HCL 50 MG TABLET (FP) PO SCH (21:17)
[2020-07-05] MEDS: MELATONIN 5 MG TABLETS PO SCH (21:17)
[2020-07-05] MEDS: THIAMINE HCL 100 MG TABLET (FP) PO SCH (21:17)
[2020-07-05] MEDS: MIRTAZAPINE 15 MG TABLET (FP) PO SCH (21:17)
[2020-07-05] MEDS: LIDOCAINE PATCH REMOVAL MC SCH (21:18)
[2020-07-06] MEDS ORDERED: methaDONE HCL 40 MG DISPERSABLE TABLET ONE (03:50)
[2020-07-06] MEDS ORDERED: methaDONE HCL 10 MG TABLET ONE (03:51)
[2020-07-06] MEDS ORDERED: PT OWN MED DRAWER 7, Y5N ONE (03:51)
[2020-07-06] MEDS: DOCUSATE SODIUM 100 MG CAPSULE (FP) PO SCH ×3 (06:25→21:16)
[2020-07-06] MEDS: GABAPENTIN 300 MG CAPSULE PO SCH ×3 (06:25→21:16)
[2020-07-06] MEDS: methaDONE 80 MG, methaDONE 10 MG PO SCH (06:25)
[2020-07-06] MEDS: EMTRICITAB/RILPIVIRI/TENOF ALA (ODEFSEY) TABLET PO SCH (07:16)
[2020-07-06] MEDS: ATOVAQUONE 750 MG/5 ML (UNIT-DOSE PACKAGING) PO SCH (07:30)
[2020-07-06] MEDS: LIDOCAINE 5% TOPICAL PATCH TP SCH (09:52)
[2020-07-06] MEDS: FERROUS SO4 325 MG TABLET (FP) PO SCH (09:52)
[2020-07-06] MEDS: LACTULOSE 20 GM/30 ML UDC (FOR ORAL USE ONLY) PO SCH (09:52)
[2020-07-06] MEDS: NICOTINE 14 MG/24 HOURS TOPICAL PATCH TD SCH (09:53)
[2020-07-06] MEDS: PRENATAL VITAMINS W/ FOLIC ACID TABLET (FP) PO SCH (09:53)
[2020-07-06] MEDS: SERTRALINE HCL 50 MG TABLET (FP) PO SCH (21:16)
[2020-07-06] MEDS: MIRTAZAPINE 15 MG TABLET (FP) PO SCH (21:16)
[2020-07-06] MEDS: THIAMINE HCL 100 MG TABLET (FP) PO SCH (21:16)
[2020-07-06] MEDS: MELATONIN 5 MG TABLETS PO SCH (21:16)
[2020-07-06] MEDS: LIDOCAINE PATCH REMOVAL MC SCH (21:16)
[2020-07-07] MEDS ORDERED: methaDONE HCL 40 MG DISPERSABLE TABLET ONE (05:46)
[2020-07-07] MEDS ORDERED: methaDONE HCL 10 MG TABLET ONE (05:47)
[2020-07-07] MEDS ORDERED: methaDONE HCL 40 MG DISPERSABLE TABLET PO SCH (06:00)
[2020-07-07] MEDS: DOCUSATE SODIUM 100 MG CAPSULE (FP) PO SCH ×3 (06:29→21:25)
[2020-07-07] MEDS: methaDONE 80 MG, methaDONE 20 MG PO SCH (06:29)
[2020-07-07] MEDS: GABAPENTIN 300 MG CAPSULE PO SCH ×3 (06:29→21:25)
[2020-07-07] MEDS: EMTRICITAB/RILPIVIRI/TENOF ALA (ODEFSEY) TABLET PO SCH (07:22)
[2020-07-07] MEDS: ATOVAQUONE 750 MG/5 ML (UNIT-DOSE PACKAGING) PO SCH (07:22)
[2020-07-07] MEDS: LACTULOSE 20 GM/30 ML UDC (FOR ORAL USE ONLY) PO SCH (10:00)
[2020-07-07] MEDS: FERROUS SO4 325 MG TABLET (FP) PO SCH (10:00)
[2020-07-07] MEDS: PRENATAL VITAMINS W/ FOLIC ACID TABLET (FP) PO SCH (10:01)
[2020-07-07] MEDS: NICOTINE 14 MG/24 HOURS TOPICAL PATCH TD SCH (10:01)
[2020-07-07] MEDS: LIDOCAINE 5% TOPICAL PATCH TP SCH (10:01)
[2020-07-07] MEDS: SERTRALINE HCL 50 MG TABLET (FP) PO SCH (21:25)
[2020-07-07] MEDS: MELATONIN 5 MG TABLETS PO SCH (21:25)
[2020-07-07] MEDS: THIAMINE HCL 100 MG TABLET (FP) PO SCH (21:25)
[2020-07-07] MEDS: MIRTAZAPINE 15 MG TABLET (FP) PO SCH (21:26)
[2020-07-07] MEDS: LIDOCAINE PATCH REMOVAL MC SCH (21:26)
[2020-07-08] MEDS ORDERED: methaDONE HCL 40 MG DISPERSABLE TABLET ONE (03:49)
[2020-07-08] MEDS ORDERED: methaDONE HCL 10 MG TABLET ONE (03:49)
[2020-07-08] MEDS ORDERED: PT OWN MED DRAWER 7, Y5N ONE (03:50)
[2020-07-08] MEDS: methaDONE 80 MG, methaDONE 20 MG PO SCH (06:25)
[2020-07-08] MEDS: GABAPENTIN 300 MG CAPSULE PO SCH ×3 (06:25→21:24)
[2020-07-08] MEDS: DOCUSATE SODIUM 100 MG CAPSULE (FP) PO SCH ×3 (06:25→21:24)
[2020-07-08] MEDS: ATOVAQUONE 750 MG/5 ML (UNIT-DOSE PACKAGING) PO SCH (07:07)
[2020-07-08] MEDS: EMTRICITAB/RILPIVIRI/TENOF ALA (ODEFSEY) TABLET PO SCH (07:07)
[2020-07-08] MEDS: FERROUS SO4 325 MG TABLET (FP) PO SCH (09:53)
[2020-07-08] MEDS: LACTULOSE 20 GM/30 ML UDC (FOR ORAL USE ONLY) PO SCH (09:53)
[2020-07-08] MEDS: LIDOCAINE 5% TOPICAL PATCH TP SCH (09:54)
[2020-07-08] MEDS: NICOTINE 14 MG/24 HOURS TOPICAL PATCH TD SCH (09:54)
[2020-07-08] MEDS: PRENATAL VITAMINS W/ FOLIC ACID TABLET (FP) PO SCH (09:54)
[2020-07-08] MEDS: THIAMINE HCL 100 MG TABLET (FP) PO SCH (21:24)
[2020-07-08] MEDS: SERTRALINE HCL 50 MG TABLET (FP) PO SCH (21:24)
[2020-07-08] MEDS: MIRTAZAPINE 15 MG TABLET (FP) PO SCH (21:24)
[2020-07-08] MEDS: MELATONIN 5 MG TABLETS PO SCH (21:24)
[2020-07-08] MEDS: LIDOCAINE PATCH REMOVAL MC SCH (21:24)
[2020-07-09] MEDS ORDERED: methaDONE HCL 10 MG TABLET ONE (05:00)
[2020-07-09] MEDS ORDERED: methaDONE HCL 40 MG DISPERSABLE TABLET ONE (05:00)
[2020-07-09] MEDS: GABAPENTIN 300 MG CAPSULE PO SCH ×3 (06:53→21:17)
[2020-07-09] MEDS: DOCUSATE SODIUM 100 MG CAPSULE (FP) PO SCH ×3 (06:53→21:17)
[2020-07-09] MEDS: methaDONE 80 MG, methaDONE 20 MG PO SCH (06:54)
[2020-07-09] MEDS: EMTRICITAB/RILPIVIRI/TENOF ALA (ODEFSEY) TABLET PO SCH (07:18)
[2020-07-09] MEDS: ATOVAQUONE 750 MG/5 ML (UNIT-DOSE PACKAGING) PO SCH (08:57)
[2020-07-09] MEDS: PRENATAL VITAMINS W/ FOLIC ACID TABLET (FP) PO SCH (09:56)
[2020-07-09] MEDS: LACTULOSE 20 GM/30 ML UDC (FOR ORAL USE ONLY) PO SCH (09:56)
[2020-07-09] MEDS: FERROUS SO4 325 MG TABLET (FP) PO SCH (09:56)
[2020-07-09] MEDS: LIDOCAINE 5% TOPICAL PATCH TP SCH (09:57)
[2020-07-09] MEDS: NICOTINE 14 MG/24 HOURS TOPICAL PATCH TD SCH (09:57)
[2020-07-09] MEDS: MIRTAZAPINE 15 MG TABLET (FP) PO SCH (21:17)
[2020-07-09] MEDS: SERTRALINE HCL 50 MG TABLET (FP) PO SCH (21:17)
[2020-07-09] MEDS: MELATONIN 5 MG TABLETS PO SCH (21:17)
[2020-07-09] MEDS: THIAMINE HCL 100 MG TABLET (FP) PO SCH (21:17)
[2020-07-09] MEDS: LIDOCAINE PATCH REMOVAL MC SCH (21:18)
[2020-07-10] MEDS ORDERED: methaDONE HCL 40 MG DISPERSABLE TABLET ONE (04:14)
[2020-07-10] MEDS ORDERED: methaDONE HCL 10 MG TABLET ONE (04:14)
[2020-07-10] MEDS ORDERED: PT OWN MED DRAWER 7, Y5N ONE ×2 (04:15→06:37)
[2020-07-10] MEDS: GABAPENTIN 300 MG CAPSULE PO SCH ×3 (06:38→21:21)
[2020-07-10] MEDS: DOCUSATE SODIUM 100 MG CAPSULE (FP) PO SCH ×3 (06:38→21:21)
[2020-07-10] MEDS: methaDONE 80 MG, methaDONE 20 MG PO SCH (06:39)
[2020-07-10] MEDS: ATOVAQUONE 750 MG/5 ML (UNIT-DOSE PACKAGING) PO SCH (08:24)
[2020-07-10] MEDS: EMTRICITAB/RILPIVIRI/TENOF ALA (ODEFSEY) TABLET PO SCH (08:45)
[2020-07-10] MEDS: LACTULOSE 20 GM/30 ML UDC (FOR ORAL USE ONLY) PO SCH (11:45)
[2020-07-10] MEDS: FERROUS SO4 325 MG TABLET (FP) PO SCH (11:46)
[2020-07-10] MEDS: NICOTINE 14 MG/24 HOURS TOPICAL PATCH TD SCH (11:46)
[2020-07-10] MEDS: PRENATAL VITAMINS W/ FOLIC ACID TABLET (FP) PO SCH (11:48)
[2020-07-10] MEDS: LIDOCAINE 5% TOPICAL PATCH TP SCH (11:49)
[2020-07-10] MEDS: SERTRALINE HCL 50 MG TABLET (FP) PO SCH (21:21)
[2020-07-10] MEDS: MIRTAZAPINE 15 MG TABLET (FP) PO SCH (21:21)
[2020-07-10] MEDS: THIAMINE HCL 100 MG TABLET (FP) PO SCH (21:21)
[2020-07-10] MEDS: LIDOCAINE PATCH REMOVAL MC SCH (21:22)
[2020-07-10] MEDS: MELATONIN 5 MG TABLETS PO SCH (21:22)
[2020-07-11] MEDS ORDERED: methaDONE HCL 10 MG TABLET ONE (03:16)
[2020-07-11] MEDS ORDERED: methaDONE HCL 40 MG DISPERSABLE TABLET ONE (03:16)
[2020-07-11] MEDS: methaDONE 80 MG, methaDONE 20 MG PO SCH (06:07)
[2020-07-11] MEDS: DOCUSATE SODIUM 100 MG CAPSULE (FP) PO SCH ×3 (06:07→21:15)
[2020-07-11] MEDS: GABAPENTIN 300 MG CAPSULE PO SCH ×3 (06:07→21:15)
[2020-07-11] MEDS: EMTRICITAB/RILPIVIRI/TENOF ALA (ODEFSEY) TABLET PO SCH (07:22)
[2020-07-11] MEDS: ATOVAQUONE 750 MG/5 ML (UNIT-DOSE PACKAGING) PO SCH (07:22)
[2020-07-11] MEDS: PRENATAL VITAMINS W/ FOLIC ACID TABLET (FP) PO SCH (09:53)
[2020-07-11] MEDS: LACTULOSE 20 GM/30 ML UDC (FOR ORAL USE ONLY) PO SCH (09:53)
[2020-07-11] MEDS: FERROUS SO4 325 MG TABLET (FP) PO SCH (09:53)
[2020-07-11] MEDS: NICOTINE 14 MG/24 HOURS TOPICAL PATCH TD SCH (09:53)
[2020-07-11] MEDS: LIDOCAINE 5% TOPICAL PATCH TP SCH (09:54)
[2020-07-11] MEDS: MELATONIN 5 MG TABLETS PO SCH (21:15)
[2020-07-11] MEDS: THIAMINE HCL 100 MG TABLET (FP) PO SCH (21:15)
[2020-07-11] MEDS: MIRTAZAPINE 15 MG TABLET (FP) PO SCH (21:15)
[2020-07-11] MEDS: SERTRALINE HCL 50 MG TABLET (FP) PO SCH (21:15)
[2020-07-11] MEDS: LIDOCAINE PATCH REMOVAL MC SCH (21:15)
[2020-07-12] MEDS ORDERED: methaDONE HCL 40 MG DISPERSABLE TABLET ONE (04:44)
[2020-07-12] MEDS ORDERED: methaDONE HCL 10 MG TABLET ONE (04:44)
[2020-07-12] MEDS: DOCUSATE SODIUM 100 MG CAPSULE (FP) PO SCH ×3 (06:36→21:06)
[2020-07-12] MEDS: GABAPENTIN 300 MG CAPSULE PO SCH ×3 (06:36→21:06)
[2020-07-12] MEDS: methaDONE 80 MG, methaDONE 20 MG PO SCH (06:36)
[2020-07-12] MEDS: ATOVAQUONE 750 MG/5 ML (UNIT-DOSE PACKAGING) PO SCH (07:48)
[2020-07-12] MEDS: EMTRICITAB/RILPIVIRI/TENOF ALA (ODEFSEY) TABLET PO SCH (07:48)
[2020-07-12] MEDS: LIDOCAINE 5% TOPICAL PATCH TP SCH (09:29)
[2020-07-12] MEDS: NICOTINE 14 MG/24 HOURS TOPICAL PATCH TD SCH (09:29)
[2020-07-12] MEDS: LACTULOSE 20 GM/30 ML UDC (FOR ORAL USE ONLY) PO SCH (09:29)
[2020-07-12] MEDS: FERROUS SO4 325 MG TABLET (FP) PO SCH (09:29)
[2020-07-12] MEDS: PRENATAL VITAMINS W/ FOLIC ACID TABLET (FP) PO SCH (09:29)
[2020-07-12] MEDS ORDERED: BENZOCAINE 28 GM HEMORRHOIDAL OINTMENT RC PRN (10:03)
[2020-07-12] MEDS: THIAMINE HCL 100 MG TABLET (FP) PO SCH (21:06)
[2020-07-12] MEDS: SERTRALINE HCL 50 MG TABLET (FP) PO SCH (21:06)
[2020-07-12] MEDS: MIRTAZAPINE 15 MG TABLET (FP) PO SCH (21:06)
[2020-07-12] MEDS: MELATONIN 5 MG TABLETS PO SCH (21:06)
[2020-07-12] MEDS: LIDOCAINE PATCH REMOVAL MC SCH (21:07)
[2020-07-13] MEDS ORDERED: methaDONE HCL 10 MG TABLET ONE (05:37)
[2020-07-13] MEDS ORDERED: methaDONE HCL 40 MG DISPERSABLE TABLET ONE (05:37)
[2020-07-13] MEDS: DOCUSATE SODIUM 100 MG CAPSULE (FP) PO SCH ×3 (06:14→21:44)
[2020-07-13] MEDS: GABAPENTIN 300 MG CAPSULE PO SCH ×3 (06:14→21:43)
[2020-07-13] MEDS: methaDONE 80 MG, methaDONE 20 MG PO SCH (06:14)
[2020-07-13] MEDS: ATOVAQUONE 750 MG/5 ML (UNIT-DOSE PACKAGING) PO SCH (07:28)
[2020-07-13] MEDS: EMTRICITAB/RILPIVIRI/TENOF ALA (ODEFSEY) TABLET PO SCH (07:28)
[2020-07-13] MEDS: NICOTINE 14 MG/24 HOURS TOPICAL PATCH TD SCH (09:52)
[2020-07-13] MEDS: LACTULOSE 20 GM/30 ML UDC (FOR ORAL USE ONLY) PO SCH (09:52)
[2020-07-13] MEDS: FERROUS SO4 325 MG TABLET (FP) PO SCH (09:52)
[2020-07-13] MEDS: PRENATAL VITAMINS W/ FOLIC ACID TABLET (FP) PO SCH (09:52)
[2020-07-13] MEDS: LIDOCAINE 5% TOPICAL PATCH TP SCH (09:53)
[2020-07-13] MEDS: SERTRALINE HCL 50 MG TABLET (FP) PO SCH (21:43)
[2020-07-13] MEDS: THIAMINE HCL 100 MG TABLET (FP) PO SCH (21:44)
[2020-07-13] MEDS: MIRTAZAPINE 15 MG TABLET (FP) PO SCH (21:44)
[2020-07-13] MEDS: LIDOCAINE PATCH REMOVAL MC SCH (21:45)
[2020-07-13] MEDS: hydrOXYzine PAMOATE 50 MG CAPSULE (FP) PO PRN (21:46)
[2020-07-14] MEDS ORDERED: methaDONE HCL 40 MG DISPERSABLE TABLET ONE (05:39)
[2020-07-14] MEDS ORDERED: methaDONE HCL 10 MG TABLET ONE (05:40)
[2020-07-14] MEDS: DOCUSATE SODIUM 100 MG CAPSULE (FP) PO SCH ×3 (06:33→21:10)
[2020-07-14] MEDS: methaDONE 80 MG, methaDONE 20 MG PO SCH (06:33)
[2020-07-14] MEDS: GABAPENTIN 300 MG CAPSULE PO SCH ×3 (06:33→21:10)
[2020-07-14] MEDS: EMTRICITAB/RILPIVIRI/TENOF ALA (ODEFSEY) TABLET PO SCH (07:04)
[2020-07-14] MEDS: ATOVAQUONE 750 MG/5 ML (UNIT-DOSE PACKAGING) PO SCH (07:04)
[2020-07-14] MEDS: LACTULOSE 20 GM/30 ML UDC (FOR ORAL USE ONLY) PO SCH (10:13)
[2020-07-14] MEDS: PRENATAL VITAMINS W/ FOLIC ACID TABLET (FP) PO SCH (10:14)
[2020-07-14] MEDS: FERROUS SO4 325 MG TABLET (FP) PO SCH (10:14)
[2020-07-14] MEDS: NICOTINE 14 MG/24 HOURS TOPICAL PATCH TD SCH (10:14)
[2020-07-14] MEDS: LIDOCAINE 5% TOPICAL PATCH TP SCH (10:14)
[2020-07-14] MEDS: SERTRALINE HCL 50 MG TABLET (FP) PO SCH (21:10)
[2020-07-14] MEDS: MIRTAZAPINE 15 MG TABLET (FP) PO SCH (21:11)
[2020-07-14] MEDS: THIAMINE HCL 100 MG TABLET (FP) PO SCH (21:11)
[2020-07-14] MEDS: hydrOXYzine PAMOATE 50 MG CAPSULE (FP) PO PRN (21:11)
[2020-07-14] MEDS: LIDOCAINE PATCH REMOVAL MC SCH (21:12)
[2020-07-15] MEDS ORDERED: methaDONE HCL 10 MG TABLET ONE (05:37)
[2020-07-15] MEDS ORDERED: methaDONE HCL 40 MG DISPERSABLE TABLET ONE (05:37)
[2020-07-15] MEDS: GABAPENTIN 300 MG CAPSULE PO SCH ×3 (06:20→21:28)
[2020-07-15] MEDS: methaDONE 80 MG, methaDONE 20 MG PO SCH (06:20)
[2020-07-15] MEDS: DOCUSATE SODIUM 100 MG CAPSULE (FP) PO SCH ×3 (06:20→21:28)
[2020-07-15 06:57] VITALS: TEMP 97
[2020-07-15] MEDS: ATOVAQUONE 750 MG/5 ML (UNIT-DOSE PACKAGING) PO SCH (07:12)
[2020-07-15] MEDS: EMTRICITAB/RILPIVIRI/TENOF ALA (ODEFSEY) TABLET PO SCH (07:12)
[2020-07-15] MEDS: PRENATAL VITAMINS W/ FOLIC ACID TABLET (FP) PO SCH (09:45)
[2020-07-15] MEDS: LACTULOSE 20 GM/30 ML UDC (FOR ORAL USE ONLY) PO SCH (09:45)
[2020-07-15] MEDS: FERROUS SO4 325 MG TABLET (FP) PO SCH (09:45)
[2020-07-15] MEDS: LIDOCAINE 5% TOPICAL PATCH TP SCH (09:45)
[2020-07-15] MEDS: NICOTINE 14 MG/24 HOURS TOPICAL PATCH TD SCH (09:45)
[2020-07-15] MEDS: hydrOXYzine PAMOATE 50 MG CAPSULE (FP) PO PRN (21:28)
[2020-07-15] MEDS: SERTRALINE HCL 50 MG TABLET (FP) PO SCH (21:28)
[2020-07-15] MEDS: MIRTAZAPINE 15 MG TABLET (FP) PO SCH (21:29)
[2020-07-15] MEDS: THIAMINE HCL 100 MG TABLET (FP) PO SCH (21:29)
[2020-07-15] MEDS: LIDOCAINE PATCH REMOVAL MC SCH (21:29)
[2020-07-16] MEDS ORDERED: methaDONE HCL 40 MG DISPERSABLE TABLET ONE (03:39)
[2020-07-16] MEDS ORDERED: methaDONE HCL 10 MG TABLET ONE (03:39)
[2020-07-16] MEDS: methaDONE 80 MG, methaDONE 20 MG PO SCH (06:32)
[2020-07-16] MEDS: GABAPENTIN 300 MG CAPSULE PO SCH (06:33)
[2020-07-16] MEDS: DOCUSATE SODIUM 100 MG CAPSULE (FP) PO SCH (06:33)
[2020-07-16] MEDS: EMTRICITAB/RILPIVIRI/TENOF ALA (ODEFSEY) TABLET PO SCH (07:10)
[2020-07-16] MEDS: ATOVAQUONE 750 MG/5 ML (UNIT-DOSE PACKAGING) PO SCH (07:10)
[2020-07-16 07:12] VITALS: BP 116/60; PULSE 75
[2020-07-16] MEDS: LACTULOSE 20 GM/30 ML UDC (FOR ORAL USE ONLY) PO SCH (09:16)
[2020-07-16] MEDS: PRENATAL VITAMINS W/ FOLIC ACID TABLET (FP) PO SCH (09:16)
[2020-07-16] MEDS: FERROUS SO4 325 MG TABLET (FP) PO SCH (09:19)
[2020-07-16] MEDS: NICOTINE 14 MG/24 HOURS TOPICAL PATCH TD SCH (09:19)
[2020-07-16] MEDS: LIDOCAINE 5% TOPICAL PATCH TP SCH (09:19)
== END 2020-07-16 09:28 | disposition home or self-care (01) | DRG 772 ==
LOC: YASAS 13:10 → Y3E 13:12 → Y3W 07-05 16:34
PROVIDERS: ADMIT Allergy & Immunology; ATTEND Allergy & Immunology
PROC: HZ42ZZZ Group Counseling for Substance Abuse Treatment, Cognitive-Behavioral (ICD-10-PCS; principal; 2020-07-01)
DX: F13.20 Sedative, hypnotic or anxiolytic dependence, uncomplicated (principal); F11.20 Opioid dependence, uncomplicated; F14.20 Cocaine dependence, uncomplicated; F17.210 Nicotine dependence, cigarettes, uncomplicated; F19.282 Other psychoactive substance dependence with psychoactive substance-induced sleep disorder; F41.9 Anxiety disorder, unspecified; F32.9 Major depressive disorder, single episode, unspecified; F43.10 Post-traumatic stress disorder, unspecified; B20 Human immunodeficiency virus [HIV] disease; Z62.810 Personal history of physical and sexual abuse in childhood; Z91.410 Personal history of adult physical and sexual abuse; Z88.1 Allergy status to other antibiotic agents; Z56.0 Unemployment, unspecified

== ENCOUNTER 2020-10-06 19:02 | Inpatient (IN) | payer OTHER ==
[2020-10-06 19:33] VITALS: BMI 25.0
[2020-10-06] MEDS ORDERED: ONDANSETRON *ODT* 4 MG TABLET SL PRN (22:38)
[2020-10-06] MEDS ORDERED: MAGNESIUM CITRATE 300 ML BOTTLE PO PRN (22:38)
[2020-10-06] MEDS ORDERED: MENTHOL/PHENOL 1 EACH UD MM PRN (22:38)
[2020-10-06] MEDS ORDERED: NICOTINE POLACRILEX 2 MG GUM BUC PRN (22:38)
[2020-10-06] MEDS ORDERED: BISMUTH SUBSALICYLATE 524 MG/30 ML UD PO PRN (22:38)
[2020-10-06] MEDS ORDERED: IBUPROFEN 400 MG TABLET (FP) PO PRN (22:38)
[2020-10-06] MEDS ORDERED: MAGNESIUM HYDROX 2400MG/30ML ORAL SUSPENSION 30 ML CUP PO PRN (22:38)
[2020-10-06] MEDS ORDERED: METHOCARBAMOL 500 MG TABLET PO PRN (22:38)
[2020-10-06] MEDS ORDERED: ACETAMINOPHEN 325 MG TABLET (FP) PO PRN ×2 (22:38)
[2020-10-06] MEDS ORDERED: MAG HYDROX/AL HYDROX/SIMETH 30 ML UNIT-DOSE CUP PO PRN (22:38)
[2020-10-06] MEDS ORDERED: LORazepam 2 MG TABLET ONE (23:45)
[2020-10-06] MEDS: LORazepam 1 MG TABLET PO SCH (23:46)
[2020-10-07] MEDS: LORazepam 1 MG TABLET PO SCH ×4 (07:36→22:22)
[2020-10-07] MEDS ORDERED: METHOCARBAMOL 500 MG TABLET PO ONE ×2 (09:30→11:00)
[2020-10-07 11:46] LABS: HEMOGLOBIN 10.1 GM/dL (10.7-15.3); MCH 32.5 pg (25.7-33.7); MCHC 34.9 g/dl (32.0-36.0); MEAN CELL VOLUME 93.3 fl (80-96); MEAN PLT VOLUME 9.2 fl (7.5-11.1); PLATELET COUNT 113 K/MM3 (134-434); POTASSIUM 3.9 mmol/L (3.5-5.1); RBC 3.11 M/mm3 (3.60-5.2); RDW 13.7 % (11.6-15.6); WHITE BLOOD COUNT 2.3 K/mm3 (4.0-10.0)
[2020-10-07 11:51] LABS: CALCIUM 9.1 mg/dL (8.5-10.1)
[2020-10-07] MEDS ORDERED: METHADONE HCL 10 MG TABLET PO ONE (11:51)
[2020-10-07 11:52] LABS: ALBUMIN 3.2 g/dl (3.4-5.0); BLOOD UREA NITROGEN 14.9 mg/dL (7-18)
[2020-10-07 11:55] LABS: BILIRUBIN,TOTAL 0.3 mg/dL (0.2-1); CREATININE 1.1 mg/dL (0.55-1.3); TOT PROT 8.5 g/dl (6.4-8.2)
[2020-10-07] MEDS: PRENATAL VITAMINS W/ FOLIC ACID TABLET (FP) PO SCH (12:01)
[2020-10-07] MEDS: NICOTINE 14 MG/24 HOURS TOPICAL PATCH TD SCH (12:02)
[2020-10-07] MEDS: LORazepam 1 MG TABLET PO PRN (13:03)
[2020-10-07] MEDS: MELATONIN 5 MG TABLETS PO SCH (22:21)
[2020-10-07] MEDS: THIAMINE HCL 100 MG TABLET (FP) PO SCH (22:21)
[2020-10-07] MEDS: MIRTAZAPINE 15 MG TABLET (FP) PO SCH (22:22)
[2020-10-08] MEDS: LORazepam 1 MG TABLET PO SCH ×4 (06:20→22:14)
[2020-10-08] MEDS ORDERED: METHADONE HCL 40 MG DISPERSABLE TABLET PO ONE (10:00)
[2020-10-08] MEDS: PRENATAL VITAMINS W/ FOLIC ACID TABLET (FP) PO SCH (10:11)
[2020-10-08] MEDS: NICOTINE 14 MG/24 HOURS TOPICAL PATCH TD SCH (10:11)
[2020-10-08] MEDS: FERROUS SO4 325 MG TABLET (FP) PO SCH (11:14)
[2020-10-08] MEDS: EMTRICITAB/RILPIVIRI/TENOF ALA (ODEFSEY) TABLET PO SCH (11:14)
[2020-10-08] MEDS: LORazepam 1 MG TABLET PO PRN ×2 (12:20→20:38)
[2020-10-08] MEDS ORDERED: LACTULOSE 20 GM/30 ML UDC (FOR ORAL USE ONLY) PO PRN (22:00)
[2020-10-08] MEDS: MELATONIN 5 MG TABLETS PO SCH (22:13)
[2020-10-08] MEDS: MIRTAZAPINE 15 MG TABLET (FP) PO SCH (22:14)
[2020-10-08] MEDS: THIAMINE HCL 100 MG TABLET (FP) PO SCH (22:15)
[2020-10-09] MEDS ORDERED: LORazepam 0.5 MG TABLET PO PRN
[2020-10-09] MEDS: METHADONE HCL 40 MG DISPERSABLE TABLET PO SCH (06:01)
[2020-10-09] MEDS: LORazepam 0.5 MG TABLET PO SCH ×4 (06:02→22:11)
[2020-10-09] MEDS: EMTRICITAB/RILPIVIRI/TENOF ALA (ODEFSEY) TABLET PO SCH (07:03)
[2020-10-09] MEDS: NICOTINE 14 MG/24 HOURS TOPICAL PATCH TD SCH (10:21)
[2020-10-09] MEDS: FERROUS SO4 325 MG TABLET (FP) PO SCH (10:21)
[2020-10-09] MEDS: PRENATAL VITAMINS W/ FOLIC ACID TABLET (FP) PO SCH (11:11)
[2020-10-09] MEDS: MIRTAZAPINE 15 MG TABLET (FP) PO SCH (22:11)
[2020-10-09] MEDS: THIAMINE HCL 100 MG TABLET (FP) PO SCH (22:12)
[2020-10-09] MEDS: MELATONIN 5 MG TABLETS PO SCH (22:12)
[2020-10-10] MEDS ORDERED: LORazepam 0.5 MG TABLET PO ONE (05:00)
[2020-10-10] MEDS: METHADONE HCL 40 MG DISPERSABLE TABLET PO SCH (05:34)
[2020-10-10] MEDS: EMTRICITAB/RILPIVIRI/TENOF ALA (ODEFSEY) TABLET PO SCH (07:39)
[2020-10-10 09:45] VITALS: BP 115/83; PULSE 123; TEMP 97.3
== END 2020-10-10 09:20 | disposition home or self-care (01) | DRG 773 ==
LOC: YASAS 19:02 → Y6N 10-07 03:41
PROVIDERS: ADMIT Allergy & Immunology; ATTEND Allergy & Immunology
PROC: HZ2ZZZZ Detoxification Services for Substance Abuse Treatment (ICD-10-PCS; principal; 2020-10-07)
DX: F13.230 Sedative, hypnotic or anxiolytic dependence with withdrawal, uncomplicated (principal); F11.20 Opioid dependence, uncomplicated; F14.20 Cocaine dependence, uncomplicated; F12.20 Cannabis dependence, uncomplicated; F17.210 Nicotine dependence, cigarettes, uncomplicated; F19.282 Other psychoactive substance dependence with psychoactive substance-induced sleep disorder; F43.10 Post-traumatic stress disorder, unspecified; F41.8 Other specified anxiety disorders; F32.9 Major depressive disorder, single episode, unspecified; B20 Human immunodeficiency virus [HIV] disease; D50.9 Iron deficiency anemia, unspecified; D72.819 Decreased white blood cell count, unspecified; Z62.810 Personal history of physical and sexual abuse in childhood; Z91.410 Personal history of adult physical and sexual abuse; Z88.1 Allergy status to other antibiotic agents
CPT/HCPCS: 36415; 80053; 81025; 85027; 86780; 93005; 93010; C9803; U0003; U0005

== ENCOUNTER 2021-05-22 12:32 | Inpatient (IN) | payer OTHER ==
[2021-05-22] MEDS ORDERED: MAGNESIUM HYDROX 2400MG/30ML ORAL SUSPENSION 30 ML CUP PO PRN (13:07)
[2021-05-22] MEDS ORDERED: ONDANSETRON *ODT* 4 MG TABLET SL PRN (13:07)
[2021-05-22] MEDS ORDERED: MENTHOL/PHENOL 1 EACH UD MM PRN (13:07)
[2021-05-22] MEDS ORDERED: NICOTINE 10 MG CARTRIDGE (INHALER) IH PRN (13:07)
[2021-05-22] MEDS ORDERED: BISMUTH SUBSALICYLATE 524 MG/30 ML PO PRN (13:07)
[2021-05-22] MEDS ORDERED: MAG HYDROX/AL HYDROX/SIMETH 30 ML UNIT-DOSE CUP PO PRN (13:07)
[2021-05-22] MEDS ORDERED: MAGNESIUM CITRATE 300 ML BOTTLE PO PRN (13:07)
[2021-05-22] MEDS ORDERED: ACETAMINOPHEN 325 MG TABLET (FP) PO PRN ×2 (13:07)
[2021-05-22 13:34] VITALS: BMI 29.2
[2021-05-22] MEDS ORDERED: methaDONE HCL 40 MG DISPERSABLE TABLET PO SCH (14:15)
[2021-05-22] MEDS ORDERED: methaDONE HCL 40 MG DISPERSABLE TABLET ONE (17:14)
[2021-05-22] MEDS ORDERED: methaDONE HCL 10 MG TABLET ONE (17:14)
[2021-05-22 17:25] LABS: HEMOGLOBIN 10.9 GM/dL (10.7-15.3); MCH 33.2 pg (25.7-33.7); MCHC 34.2 g/dl (32.0-36.0); MEAN CELL VOLUME 97.1 fl (80-96); MEAN PLT VOLUME 8.1 fl (7.5-11.1); PLATELET COUNT 158 10^3/uL (134-434); RDW 12.8 % (11.6-15.6); WHITE BLOOD COUNT 4.1 K/mm3 (4.0-10.0)
[2021-05-22 17:28] LABS: ALBUMIN 3.5 g/dl (3.4-5.0); BLOOD UREA NITROGEN 15.7 mg/dL (7-18)
[2021-05-22 17:31] LABS: CREATININE 1.3 mg/dL (0.55-1.3)
[2021-05-22 17:32] LABS: BILIRUBIN,TOTAL 0.3 mg/dL (0.2-1); TOT PROT 9.4 g/dl (6.4-8.2)
[2021-05-22] MEDS: PRENATAL VITAMINS W/ FOLIC ACID TABLET (FP) PO SCH (18:12)
[2021-05-22] MEDS: hydrOXYzine PAMOATE 25 MG CAPSULE (FP) PO SCH ×3 (18:12→22:41)
[2021-05-22] MEDS: MIRTAZAPINE 15 MG TABLET (FP) PO SCH (22:41)
[2021-05-22] MEDS: MELATONIN 5 MG TABLETS PO SCH (22:41)
[2021-05-22] MEDS: LACTULOSE 20 GM/30 ML UDC (FOR ORAL USE ONLY) PO SCH (22:41)
[2021-05-22] MEDS: THIAMINE HCL 100 MG TABLET (FP) PO SCH (22:41)
[2021-05-22] MEDS: DOCUSATE SODIUM 100 MG CAPSULE (FP) PO SCH (22:41)
[2021-05-23] MEDS: hydrOXYzine PAMOATE 25 MG CAPSULE (FP) PO SCH ×2 (06:25→06:30)
[2021-05-23] MEDS ORDERED: methaDONE HCL 40 MG DISPERSABLE TABLET ONE (10:27)
[2021-05-23] MEDS ORDERED: methaDONE HCL 10 MG TABLET ONE (10:27)
[2021-05-23] MEDS: IBUPROFEN 400 MG TABLET (FP) PO PRN ×2 (10:30→18:03)
[2021-05-23] MEDS: PRENATAL VITAMINS W/ FOLIC ACID TABLET (FP) PO SCH (10:31)
[2021-05-23] MEDS ORDERED: FLU VACC QS2021-22(6MOS UP)/PF 60 MCG/0.5 ML SYRINGE IM ONE (12:00)
[2021-05-23] MEDS: BICTEGRAV/EMTRICIT/TENOFOV (BIKTARVY) 50-200-25 MG TABLET PO SCH (12:05)
[2021-05-23] MEDS: diazePAM 5 MG TABLET PO SCH ×3 (12:06→22:43)
[2021-05-23] MEDS: THIAMINE HCL 100 MG TABLET (FP) PO SCH (22:43)
[2021-05-23] MEDS: METHOCARBAMOL 500 MG TABLET PO PRN (22:43)
[2021-05-23] MEDS: MELATONIN 5 MG TABLETS PO SCH (22:43)
[2021-05-23] MEDS: SULFAMETHOXAZOLE/TRIMETHOPRIM 800MG/160MG D.S. TABLET PO SCH (22:43)
[2021-05-23] MEDS: MIRTAZAPINE 15 MG TABLET (FP) PO SCH (22:43)
[2021-05-23] MEDS: DOCUSATE SODIUM 100 MG CAPSULE (FP) PO SCH (22:43)
[2021-05-23] MEDS: hydrOXYzine PAMOATE 25 MG CAPSULE (FP) PO PRN (22:43)
[2021-05-23] MEDS: LACTULOSE 20 GM/30 ML UDC (FOR ORAL USE ONLY) PO SCH (22:50)
[2021-05-24] MEDS ORDERED: CLINDAMYCIN HCL 150 MG CAPSULE (FP) PO SCH
[2021-05-24] MEDS: diazePAM 5 MG TABLET PO SCH ×4 (05:42→22:20)
[2021-05-24] MEDS: BICTEGRAV/EMTRICIT/TENOFOV (BIKTARVY) 50-200-25 MG TABLET PO SCH (07:05)
[2021-05-24] MEDS ORDERED: methaDONE HCL 40 MG DISPERSABLE TABLET ONE (08:55)
[2021-05-24] MEDS ORDERED: methaDONE HCL 10 MG TABLET ONE (08:55)
[2021-05-24] MEDS: PRENATAL VITAMINS W/ FOLIC ACID TABLET (FP) PO SCH (10:43)
[2021-05-24] MEDS: SULFAMETHOXAZOLE/TRIMETHOPRIM 800MG/160MG D.S. TABLET PO SCH ×2 (10:43→22:19)
[2021-05-24] MEDS: diazePAM 5 MG TABLET PO PRN (13:17)
[2021-05-24] MEDS: THIAMINE HCL 100 MG TABLET (FP) PO SCH (22:19)
[2021-05-24] MEDS: DOCUSATE SODIUM 100 MG CAPSULE (FP) PO SCH (22:19)
[2021-05-24] MEDS: LACTULOSE 20 GM/30 ML UDC (FOR ORAL USE ONLY) PO SCH (22:19)
[2021-05-24] MEDS: MIRTAZAPINE 15 MG TABLET (FP) PO SCH (22:19)
[2021-05-24] MEDS: MELATONIN 5 MG TABLETS PO SCH (22:20)
[2021-05-25] MEDS: diazePAM 5 MG TABLET PO SCH ×3 (05:37→22:20)
[2021-05-25] MEDS: BICTEGRAV/EMTRICIT/TENOFOV (BIKTARVY) 50-200-25 MG TABLET PO SCH (07:06)
[2021-05-25] MEDS ORDERED: methaDONE HCL 10 MG TABLET ONE (09:15)
[2021-05-25] MEDS ORDERED: methaDONE HCL 40 MG DISPERSABLE TABLET ONE (09:16)
[2021-05-25] MEDS: PRENATAL VITAMINS W/ FOLIC ACID TABLET (FP) PO SCH (10:07)
[2021-05-25] MEDS: SULFAMETHOXAZOLE/TRIMETHOPRIM 800MG/160MG D.S. TABLET PO SCH ×2 (10:11→22:18)
[2021-05-25] MEDS: diazePAM 5 MG TABLET PO PRN (10:11)
[2021-05-25] MEDS: MIRTAZAPINE 15 MG TABLET (FP) PO SCH (22:18)
[2021-05-25] MEDS: THIAMINE HCL 100 MG TABLET (FP) PO SCH (22:18)
[2021-05-25] MEDS: MELATONIN 5 MG TABLETS PO SCH (22:18)
[2021-05-25] MEDS: DOCUSATE SODIUM 100 MG CAPSULE (FP) PO SCH (22:18)
[2021-05-26] MEDS: LACTULOSE 20 GM/30 ML UDC (FOR ORAL USE ONLY) PO SCH ×2 (00:41→22:10)
[2021-05-26] MEDS: diazePAM 5 MG TABLET PO SCH ×2 (06:05→17:48)
[2021-05-26] MEDS ORDERED: methaDONE HCL 10 MG TABLET ONE (09:19)
[2021-05-26] MEDS ORDERED: methaDONE HCL 40 MG DISPERSABLE TABLET ONE (09:19)
[2021-05-26] MEDS: PRENATAL VITAMINS W/ FOLIC ACID TABLET (FP) PO SCH (10:26)
[2021-05-26] MEDS: SULFAMETHOXAZOLE/TRIMETHOPRIM 800MG/160MG D.S. TABLET PO SCH ×2 (10:26→22:10)
[2021-05-26] MEDS: diazePAM 5 MG TABLET PO PRN (10:27)
[2021-05-26] MEDS: DOCUSATE SODIUM 100 MG CAPSULE (FP) PO SCH (22:10)
[2021-05-26] MEDS: MIRTAZAPINE 15 MG TABLET (FP) PO SCH (22:10)
[2021-05-26] MEDS: MELATONIN 5 MG TABLETS PO SCH (22:10)
[2021-05-26] MEDS: THIAMINE HCL 100 MG TABLET (FP) PO SCH (22:10)
[2021-05-26] MEDS: hydrOXYzine PAMOATE 25 MG CAPSULE (FP) PO PRN (22:11)
[2021-05-26] MEDS: METHOCARBAMOL 500 MG TABLET PO PRN (22:11)
[2021-05-27] MEDS ORDERED: diazePAM 5 MG TABLET PO ONE (06:00)
[2021-05-27] MEDS: BICTEGRAV/EMTRICIT/TENOFOV (BIKTARVY) 50-200-25 MG TABLET PO SCH ×2 (07:04)
[2021-05-27] MEDS ORDERED: methaDONE HCL 10 MG TABLET ONE (09:38)
[2021-05-27] MEDS ORDERED: methaDONE HCL 40 MG DISPERSABLE TABLET ONE (09:39)
[2021-05-27] MEDS: PRENATAL VITAMINS W/ FOLIC ACID TABLET (FP) PO SCH (10:29)
[2021-05-27] MEDS: SULFAMETHOXAZOLE/TRIMETHOPRIM 800MG/160MG D.S. TABLET PO SCH (10:29)
[2021-05-27 13:17] VITALS: BP 95/54; PULSE 87; TEMP 96.9
== END 2021-05-27 14:56 | disposition other institution (70) | DRG 773 ==
LOC: YASAS 12:32 → Y3N 13:51
PROVIDERS: ADMIT Allergy & Immunology; ATTEND Allergy & Immunology
PROC: HZ2ZZZZ Detoxification Services for Substance Abuse Treatment (ICD-10-PCS; principal; 2021-05-22)
DX: F13.230 Sedative, hypnotic or anxiolytic dependence with withdrawal, uncomplicated (principal); F11.20 Opioid dependence, uncomplicated; F14.20 Cocaine dependence, uncomplicated; F17.210 Nicotine dependence, cigarettes, uncomplicated; F19.24 Other psychoactive substance dependence with psychoactive substance-induced mood disorder; F43.10 Post-traumatic stress disorder, unspecified; B20 Human immunodeficiency virus [HIV] disease; G47.00 Insomnia, unspecified; L03.114 Cellulitis of left upper limb; Z88.1 Allergy status to other antibiotic agents; Z91.14 Patient's other noncompliance with medication regimen
CPT/HCPCS: 36415; 80053; 81025; 85027; 86780; C9803; Q0162; U0003; U0005

== ENCOUNTER 2021-07-25 21:27 | Inpatient (IN) | payer OTHER ==
[2021-07-25] MEDS ORDERED: MAGNESIUM HYDROX 2400MG/30ML ORAL SUSPENSION 30 ML CUP PO PRN (23:27)
[2021-07-25] MEDS ORDERED: MENTHOL/PHENOL 1 EACH UD MM PRN (23:27)
[2021-07-25] MEDS ORDERED: NICOTINE POLACRILEX 2 MG GUM BUC PRN (23:27)
[2021-07-25] MEDS ORDERED: ACETAMINOPHEN 325 MG TABLET (FP) PO PRN ×2 (23:27)
[2021-07-25] MEDS ORDERED: P-EPHED 60MG/TRIPROLIDI 2.5MG TABLET PO PRN (23:27)
[2021-07-25] MEDS ORDERED: guaiFENesin 200 MG/10 ML 10 ML UNIT-DOSE CUPS PO PRN (23:27)
[2021-07-25] MEDS ORDERED: IBUPROFEN 400 MG TABLET (FP) PO PRN (23:27)
[2021-07-25] MEDS ORDERED: BISMUTH SUBSALICYLATE 524 MG/30 ML PO PRN (23:27)
[2021-07-25] MEDS ORDERED: NALOXONE HCL 0.4 MG/ML VIAL IM PRN (23:27)
[2021-07-25] MEDS ORDERED: MAG HYDROX/AL HYDROX/SIMETH 30 ML UNIT-DOSE CUP PO PRN (23:27)
[2021-07-25] MEDS ORDERED: NALOXONE (NARCAN) HCL 4 MG/0.1 ML SPRAY NS PRN (23:27)
[2021-07-25] MEDS ORDERED: ONDANSETRON *ODT* 4 MG TABLET SL PRN (23:27)
[2021-07-25] MEDS ORDERED: DICYCLOMINE HCL 10 MG CAPSULE PO PRN (23:27)
[2021-07-25] MEDS ORDERED: MAGNESIUM CITRATE 300 ML BOTTLE PO PRN (23:27)
[2021-07-26 02:10] VITALS: BMI 29.1
[2021-07-26] MEDS: AMOX TR/POT CLAV 875MG/125MG TABLETS (FP) PO SCH ×2 (07:12→18:44)
[2021-07-26] MEDS: hydrOXYzine PAMOATE 25 MG CAPSULE (FP) PO PRN (10:30)
[2021-07-26] MEDS: PRENATAL VITAMINS W/ FOLIC ACID TABLET (FP) PO SCH (10:31)
[2021-07-26] MEDS: BICTEGRAV/EMTRICIT/TENOFOV (BIKTARVY) 50-200-25 MG TABLET PO SCH (10:31)
[2021-07-26] MEDS: NICOTINE 14 MG/24 HOURS TOPICAL PATCH TD SCH (10:32)
[2021-07-26 11:46] LABS: HEMATOCRIT 30.5 % (32.4-45.2); MCHC 32.9 g/dl (32.0-36.0); MEAN CELL VOLUME 94.3 fl (80-96); MEAN PLT VOLUME 8.2 fl (7.5-11.1); PLATELET COUNT 181 10^3/uL (134-434); RBC 3.24 M/mm3 (3.60-5.2); WHITE BLOOD COUNT 2.1 K/mm3 (4.0-10.0)
[2021-07-26 13:02] LABS: CALCIUM 8.9 mg/dL (8.5-10.1)
[2021-07-26 13:03] LABS: ALBUMIN 3.1 g/dl (3.4-5.0)
[2021-07-26 13:04] LABS: BLOOD UREA NITROGEN 16.7 mg/dL (7-18)
[2021-07-26 13:08] LABS: BILIRUBIN,TOTAL 0.5 mg/dL (0.2-1)
[2021-07-26 13:09] LABS: TOT PROT 8.4 g/dl (6.4-8.2)
[2021-07-26] MEDS ORDERED: methaDONE HCL 40 MG DISPERSABLE TABLET PO SCH (14:15)
[2021-07-26] MEDS ORDERED: methaDONE HCL 40 MG DISPERSABLE TABLET ONE (15:19)
[2021-07-26] MEDS ORDERED: methaDONE HCL 10 MG TABLET ONE (15:19)
[2021-07-26] MEDS: diazePAM 5 MG TABLET PO SCH ×2 (18:45→22:44)
[2021-07-26] MEDS: THIAMINE HCL 100 MG TABLET (FP) PO SCH (22:44)
[2021-07-26] MEDS: DOCUSATE SODIUM 100 MG CAPSULE (FP) PO SCH (22:44)
[2021-07-26] MEDS: MELATONIN 5 MG TABLETS PO SCH (22:44)
[2021-07-27] MEDS ORDERED: methaDONE HCL 10 MG TABLET ONE (04:29)
[2021-07-27] MEDS ORDERED: methaDONE HCL 40 MG DISPERSABLE TABLET ONE (04:29)
[2021-07-27] MEDS: diazePAM 5 MG TABLET PO SCH ×4 (06:19→22:39)
[2021-07-27] MEDS: AMOX TR/POT CLAV 875MG/125MG TABLETS (FP) PO SCH ×2 (07:45→18:03)
[2021-07-27] MEDS: BICTEGRAV/EMTRICIT/TENOFOV (BIKTARVY) 50-200-25 MG TABLET PO SCH (10:19)
[2021-07-27] MEDS: NICOTINE 14 MG/24 HOURS TOPICAL PATCH TD SCH (10:19)
[2021-07-27] MEDS: PRENATAL VITAMINS W/ FOLIC ACID TABLET (FP) PO SCH (10:19)
[2021-07-27] MEDS: DOCUSATE SODIUM 100 MG CAPSULE (FP) PO SCH (22:38)
[2021-07-27] MEDS: THIAMINE HCL 100 MG TABLET (FP) PO SCH (22:39)
[2021-07-27] MEDS: MELATONIN 5 MG TABLETS PO SCH (22:39)
[2021-07-28] MEDS ORDERED: methaDONE HCL 40 MG DISPERSABLE TABLET ONE (04:38)
[2021-07-28] MEDS ORDERED: methaDONE HCL 10 MG TABLET ONE (04:38)
[2021-07-28] MEDS: diazePAM 5 MG TABLET PO SCH ×3 (05:55→21:29)
[2021-07-28] MEDS: AMOX TR/POT CLAV 875MG/125MG TABLETS (FP) PO SCH ×2 (07:17→18:34)
[2021-07-28] MEDS: PRENATAL VITAMINS W/ FOLIC ACID TABLET (FP) PO SCH (10:25)
[2021-07-28] MEDS: BICTEGRAV/EMTRICIT/TENOFOV (BIKTARVY) 50-200-25 MG TABLET PO SCH (10:26)
[2021-07-28] MEDS: METHOCARBAMOL 500 MG TABLET PO PRN (10:26)
[2021-07-28] MEDS: diazePAM 5 MG TABLET PO PRN (10:27)
[2021-07-28] MEDS: NICOTINE 14 MG/24 HOURS TOPICAL PATCH TD SCH (12:41)
[2021-07-28] MEDS: DOCUSATE SODIUM 100 MG CAPSULE (FP) PO SCH (21:28)
[2021-07-28] MEDS: MELATONIN 5 MG TABLETS PO SCH (21:30)
[2021-07-28] MEDS: THIAMINE HCL 100 MG TABLET (FP) PO SCH (21:30)
[2021-07-29] MEDS ORDERED: methaDONE HCL 10 MG TABLET ONE (04:22)
[2021-07-29] MEDS ORDERED: methaDONE HCL 40 MG DISPERSABLE TABLET ONE (04:23)
[2021-07-29] MEDS: diazePAM 5 MG TABLET PO SCH ×2 (06:08→18:11)
[2021-07-29] MEDS: AMOX TR/POT CLAV 875MG/125MG TABLETS (FP) PO SCH ×2 (07:00→18:10)
[2021-07-29] MEDS: PRENATAL VITAMINS W/ FOLIC ACID TABLET (FP) PO SCH (10:11)
[2021-07-29] MEDS: NICOTINE 14 MG/24 HOURS TOPICAL PATCH TD SCH (10:11)
[2021-07-29] MEDS: diazePAM 5 MG TABLET PO PRN (10:14)
[2021-07-29] MEDS: BICTEGRAV/EMTRICIT/TENOFOV (BIKTARVY) 50-200-25 MG TABLET PO SCH (10:14)
[2021-07-29] MEDS: hydrOXYzine PAMOATE 25 MG CAPSULE (FP) PO PRN (22:31)
[2021-07-29] MEDS: MELATONIN 5 MG TABLETS PO SCH (22:31)
[2021-07-29] MEDS: THIAMINE HCL 100 MG TABLET (FP) PO SCH (22:31)
[2021-07-29] MEDS: DOCUSATE SODIUM 100 MG CAPSULE (FP) PO SCH (22:31)
[2021-07-29] MEDS: METHOCARBAMOL 500 MG TABLET PO PRN (22:31)
[2021-07-30] MEDS ORDERED: methaDONE HCL 40 MG DISPERSABLE TABLET ONE (04:26)
[2021-07-30] MEDS ORDERED: methaDONE HCL 10 MG TABLET ONE (04:26)
[2021-07-30] MEDS ORDERED: diazePAM 5 MG TABLET PO ONE (06:00)
[2021-07-30] MEDS: AMOX TR/POT CLAV 875MG/125MG TABLETS (FP) PO SCH ×2 (07:43→18:19)
[2021-07-30] MEDS: BICTEGRAV/EMTRICIT/TENOFOV (BIKTARVY) 50-200-25 MG TABLET PO SCH (10:11)
[2021-07-30] MEDS: PRENATAL VITAMINS W/ FOLIC ACID TABLET (FP) PO SCH (10:11)
[2021-07-30] MEDS: hydrOXYzine PAMOATE 25 MG CAPSULE (FP) PO PRN (10:11)
[2021-07-30] MEDS: NICOTINE 14 MG/24 HOURS TOPICAL PATCH TD SCH (10:28)
[2021-07-30 21:47] VITALS: BP 88/53; PULSE 61; TEMP 97
== END 2021-07-30 22:25 | disposition other institution (70) | DRG 773 ==
LOC: YASAS 21:27 → Y3N 07-26 01:46
PROVIDERS: ADMIT Allergy & Immunology; ATTEND Allergy & Immunology
PROC: HZ2ZZZZ Detoxification Services for Substance Abuse Treatment (ICD-10-PCS; principal; 2021-07-26)
DX: F11.23 Opioid dependence with withdrawal (principal); F13.20 Sedative, hypnotic or anxiolytic dependence, uncomplicated; F14.20 Cocaine dependence, uncomplicated; F17.210 Nicotine dependence, cigarettes, uncomplicated; F19.282 Other psychoactive substance dependence with psychoactive substance-induced sleep disorder; F19.24 Other psychoactive substance dependence with psychoactive substance-induced mood disorder; F41.8 Other specified anxiety disorders; F32.9 Major depressive disorder, single episode, unspecified; F43.10 Post-traumatic stress disorder, unspecified; B20 Human immunodeficiency virus [HIV] disease; L03.114 Cellulitis of left upper limb; D64.9 Anemia, unspecified; D72.819 Decreased white blood cell count, unspecified; B18.2 Chronic viral hepatitis C; R94.5 Abnormal results of liver function studies; Z62.810 Personal history of physical and sexual abuse in childhood; Z91.410 Personal history of adult physical and sexual abuse; Z88.1 Allergy status to other antibiotic agents; Z59.00 Homelessness unspecified
CPT/HCPCS: 36415; 80053; 85027; 86780; C9803; Q0162; U0003; U0005

== ENCOUNTER 2021-07-30 22:45 | Inpatient (IN) | payer OTHER ==
[2021-07-31] MEDS ORDERED: P-EPHED 60MG/TRIPROLIDI 2.5MG TABLET PO PRN (00:18)
[2021-07-31] MEDS ORDERED: MAGNESIUM CITRATE 300 ML BOTTLE PO PRN (00:18)
[2021-07-31] MEDS ORDERED: guaiFENesin 200 MG/10 ML 10 ML UNIT-DOSE CUPS PO PRN (00:18)
[2021-07-31] MEDS ORDERED: LOPERAMIDE HCL 2 MG CAPSULE PO PRN (00:18)
[2021-07-31] MEDS ORDERED: NICOTINE POLACRILEX 2 MG GUM BUC PRN (00:18)
[2021-07-31] MEDS ORDERED: IBUPROFEN 400 MG TABLET (FP) PO PRN (00:18)
[2021-07-31] MEDS ORDERED: MENTHOL/PHENOL 1 EACH UD MM PRN (00:18)
[2021-07-31] MEDS ORDERED: MAG HYDROX/AL HYDROX/SIMETH 30 ML UNIT-DOSE CUP PO PRN (00:18)
[2021-07-31] MEDS ORDERED: methaDONE HCL 10 MG TABLET PO SCH (06:00)
[2021-07-31] MEDS ORDERED: methaDONE HCL 10 MG TABLET ONE (06:06)
[2021-07-31] MEDS ORDERED: methaDONE HCL 40 MG DISPERSABLE TABLET ONE (06:07)
[2021-07-31] MEDS ORDERED: AMOX TR/POT CLAV 875MG/125MG TABLETS (FP) PO SCH (08:00)
[2021-07-31] MEDS: NICOTINE 14 MG/24 HOURS TOPICAL PATCH TD SCH (10:26)
[2021-07-31] MEDS: BICTEGRAV/EMTRICIT/TENOFOV (BIKTARVY) 50-200-25 MG TABLET PO SCH (10:26)
[2021-07-31] MEDS: PRENATAL VITAMINS W/ FOLIC ACID TABLET (FP) PO SCH (10:26)
[2021-07-31] MEDS: hydrOXYzine PAMOATE 25 MG CAPSULE (FP) PO PRN ×2 (10:27→21:31)
[2021-07-31] MEDS: MELATONIN 5 MG TABLETS PO SCH (21:31)
[2021-07-31] MEDS: THIAMINE HCL 100 MG TABLET (FP) PO SCH (21:31)
[2021-08-01] MEDS ORDERED: methaDONE HCL 10 MG TABLET ONE (06:29)
[2021-08-01] MEDS ORDERED: methaDONE HCL 40 MG DISPERSABLE TABLET ONE (06:30)
[2021-08-01] MEDS: PRENATAL VITAMINS W/ FOLIC ACID TABLET (FP) PO SCH (10:41)
[2021-08-01] MEDS: BICTEGRAV/EMTRICIT/TENOFOV (BIKTARVY) 50-200-25 MG TABLET PO SCH (10:42)
[2021-08-01] MEDS: NICOTINE 14 MG/24 HOURS TOPICAL PATCH TD SCH (10:43)
[2021-08-01] MEDS: hydrOXYzine PAMOATE 25 MG CAPSULE (FP) PO PRN ×2 (10:43→21:38)
[2021-08-01] MEDS: MAGNESIUM HYDROX 2400MG/30ML ORAL SUSPENSION 30 ML CUP PO PRN (14:23)
[2021-08-01] MEDS: SENNOSIDES 8.6MG TABLET (FP) PO SCH (21:37)
[2021-08-01] MEDS: DOCUSATE SODIUM 100 MG CAPSULE (FP) PO SCH (21:37)
[2021-08-01] MEDS: THIAMINE HCL 100 MG TABLET (FP) PO SCH (21:37)
[2021-08-01] MEDS: MELATONIN 5 MG TABLETS PO SCH (21:37)
[2021-08-02] MEDS ORDERED: methaDONE HCL 10 MG TABLET ONE (03:35)
[2021-08-02] MEDS ORDERED: methaDONE HCL 40 MG DISPERSABLE TABLET ONE (03:35)
[2021-08-02] MEDS: BICTEGRAV/EMTRICIT/TENOFOV (BIKTARVY) 50-200-25 MG TABLET PO SCH (10:13)
[2021-08-02] MEDS: PRENATAL VITAMINS W/ FOLIC ACID TABLET (FP) PO SCH (10:13)
[2021-08-02] MEDS: NICOTINE 14 MG/24 HOURS TOPICAL PATCH TD SCH (10:14)
[2021-08-02] MEDS: SENNOSIDES 8.6MG TABLET (FP) PO SCH ×2 (10:15→21:42)
[2021-08-02] MEDS: FERROUS SO4 325 MG TABLET (FP) PO SCH (17:59)
[2021-08-02] MEDS: hydrOXYzine PAMOATE 25 MG CAPSULE (FP) PO PRN (21:42)
[2021-08-02] MEDS: DOCUSATE SODIUM 100 MG CAPSULE (FP) PO SCH (21:42)
[2021-08-02] MEDS: MELATONIN 5 MG TABLETS PO SCH (22:25)
[2021-08-02] MEDS: THIAMINE HCL 100 MG TABLET (FP) PO SCH (22:26)
[2021-08-03] MEDS ORDERED: methaDONE HCL 40 MG DISPERSABLE TABLET ONE (05:38)
[2021-08-03] MEDS ORDERED: methaDONE HCL 10 MG TABLET ONE (05:38)
[2021-08-03] MEDS: FERROUS SO4 325 MG TABLET (FP) PO SCH ×2 (07:06→18:00)
[2021-08-03] MEDS: BICTEGRAV/EMTRICIT/TENOFOV (BIKTARVY) 50-200-25 MG TABLET PO SCH (10:24)
[2021-08-03] MEDS: NICOTINE 14 MG/24 HOURS TOPICAL PATCH TD SCH (10:24)
[2021-08-03] MEDS: PRENATAL VITAMINS W/ FOLIC ACID TABLET (FP) PO SCH (10:24)
[2021-08-03] MEDS: SENNOSIDES 8.6MG TABLET (FP) PO SCH ×2 (10:26→21:42)
[2021-08-03] MEDS: THIAMINE HCL 100 MG TABLET (FP) PO SCH (21:42)
[2021-08-03] MEDS: DOCUSATE SODIUM 100 MG CAPSULE (FP) PO SCH (21:42)
[2021-08-03] MEDS: hydrOXYzine PAMOATE 25 MG CAPSULE (FP) PO PRN (21:42)
[2021-08-03] MEDS: ACETAMINOPHEN 325 MG TABLET (FP) PO PRN (21:43)
[2021-08-03] MEDS: MELATONIN 5 MG TABLETS PO SCH (21:45)
[2021-08-04] MEDS ORDERED: methaDONE HCL 10 MG TABLET ONE (03:44)
[2021-08-04] MEDS ORDERED: methaDONE HCL 40 MG DISPERSABLE TABLET ONE (03:45)
[2021-08-04] MEDS: FERROUS SO4 325 MG TABLET (FP) PO SCH ×2 (07:24→18:03)
[2021-08-04] MEDS: hydrOXYzine PAMOATE 25 MG CAPSULE (FP) PO PRN ×2 (09:50→21:22)
[2021-08-04] MEDS: NICOTINE 14 MG/24 HOURS TOPICAL PATCH TD SCH (09:50)
[2021-08-04] MEDS: BICTEGRAV/EMTRICIT/TENOFOV (BIKTARVY) 50-200-25 MG TABLET PO SCH (09:50)
[2021-08-04] MEDS: PRENATAL VITAMINS W/ FOLIC ACID TABLET (FP) PO SCH (09:50)
[2021-08-04] MEDS: SENNOSIDES 8.6MG TABLET (FP) PO SCH ×2 (09:50→21:22)
[2021-08-04] MEDS: THIAMINE HCL 100 MG TABLET (FP) PO SCH (21:22)
[2021-08-04] MEDS: MELATONIN 5 MG TABLETS PO SCH (21:22)
[2021-08-04] MEDS: DOCUSATE SODIUM 100 MG CAPSULE (FP) PO SCH (21:22)
[2021-08-05] MEDS ORDERED: methaDONE HCL 10 MG TABLET ONE (05:28)
[2021-08-05] MEDS ORDERED: methaDONE HCL 40 MG DISPERSABLE TABLET ONE (05:28)
[2021-08-05] MEDS: FERROUS SO4 325 MG TABLET (FP) PO SCH ×2 (07:26→18:17)
[2021-08-05] MEDS: PRENATAL VITAMINS W/ FOLIC ACID TABLET (FP) PO SCH (10:15)
[2021-08-05] MEDS: NICOTINE 14 MG/24 HOURS TOPICAL PATCH TD SCH (10:16)
[2021-08-05] MEDS: BICTEGRAV/EMTRICIT/TENOFOV (BIKTARVY) 50-200-25 MG TABLET PO SCH (10:16)
[2021-08-05] MEDS: SENNOSIDES 8.6MG TABLET (FP) PO SCH ×2 (10:16→21:32)
[2021-08-05] MEDS: MAGNESIUM HYDROX 2400MG/30ML ORAL SUSPENSION 30 ML CUP PO PRN (10:17)
[2021-08-05 10:49] LABS: HEMATOCRIT 34.3 % (32.4-45.2); HEMOGLOBIN 11.4 GM/dL (10.7-15.3); MCHC 33.1 g/dl (32.0-36.0); MEAN CELL VOLUME 93.7 fl (80-96); MEAN PLT VOLUME 9.4 fl (7.5-11.1); PLATELET COUNT 245 10^3/uL (134-434); RBC 3.67 M/mm3 (3.60-5.2); RDW 13.8 % (11.6-15.6); WHITE BLOOD COUNT 3.9 K/mm3 (4.0-10.0)
[2021-08-05 10:51] LABS: CALCIUM 9.7 mg/dL (8.5-10.1)
[2021-08-05 10:52] LABS: ALBUMIN 3.6 g/dl (3.4-5.0); BLOOD UREA NITROGEN 22.1 mg/dL (7-18)
[2021-08-05 10:57] LABS: BILIRUBIN,TOTAL 0.6 mg/dL (0.2-1); TOT PROT 9.4 g/dl (6.4-8.2)
[2021-08-05] MEDS: THIAMINE HCL 100 MG TABLET (FP) PO SCH (21:32)
[2021-08-05] MEDS: MELATONIN 5 MG TABLETS PO SCH (21:32)
[2021-08-05] MEDS: DOCUSATE SODIUM 100 MG CAPSULE (FP) PO SCH (21:32)
[2021-08-05] MEDS: hydrOXYzine PAMOATE 25 MG CAPSULE (FP) PO PRN (21:33)
[2021-08-06] MEDS ORDERED: methaDONE HCL 10 MG TABLET ONE (06:01)
[2021-08-06] MEDS ORDERED: methaDONE HCL 40 MG DISPERSABLE TABLET ONE (06:02)
[2021-08-06] MEDS: FERROUS SO4 325 MG TABLET (FP) PO SCH ×2 (07:11→18:07)
[2021-08-06] MEDS ORDERED: SODIUM PHOSPHATE/NA BIPHOS 133 ML ENEMA RC ONE (09:45)
[2021-08-06] MEDS: NICOTINE 14 MG/24 HOURS TOPICAL PATCH TD SCH (09:47)
[2021-08-06] MEDS: BICTEGRAV/EMTRICIT/TENOFOV (BIKTARVY) 50-200-25 MG TABLET PO SCH (09:47)
[2021-08-06] MEDS: PRENATAL VITAMINS W/ FOLIC ACID TABLET (FP) PO SCH (09:47)
[2021-08-06] MEDS: SENNOSIDES 8.6MG TABLET (FP) PO SCH ×2 (09:48→21:35)
[2021-08-06] MEDS: DOCUSATE SODIUM 100 MG CAPSULE (FP) PO SCH (21:34)
[2021-08-06] MEDS: MELATONIN 5 MG TABLETS PO SCH (21:34)
[2021-08-06] MEDS: THIAMINE HCL 100 MG TABLET (FP) PO SCH (21:35)
[2021-08-06] MEDS: hydrOXYzine PAMOATE 25 MG CAPSULE (FP) PO PRN (21:35)
[2021-08-07] MEDS ORDERED: methaDONE HCL 10 MG TABLET ONE (06:08)
[2021-08-07] MEDS ORDERED: methaDONE HCL 40 MG DISPERSABLE TABLET ONE (06:09)
[2021-08-07] MEDS: FERROUS SO4 325 MG TABLET (FP) PO SCH ×2 (07:06→18:13)
[2021-08-07] MEDS: SENNOSIDES 8.6MG TABLET (FP) PO SCH ×2 (10:01→21:31)
[2021-08-07] MEDS: BICTEGRAV/EMTRICIT/TENOFOV (BIKTARVY) 50-200-25 MG TABLET PO SCH (10:01)
[2021-08-07] MEDS: NICOTINE 14 MG/24 HOURS TOPICAL PATCH TD SCH (10:01)
[2021-08-07] MEDS: PRENATAL VITAMINS W/ FOLIC ACID TABLET (FP) PO SCH (10:01)
[2021-08-07] MEDS: THIAMINE HCL 100 MG TABLET (FP) PO SCH (21:31)
[2021-08-07] MEDS: DOCUSATE SODIUM 100 MG CAPSULE (FP) PO SCH (21:31)
[2021-08-07] MEDS: MELATONIN 5 MG TABLETS PO SCH (21:32)
[2021-08-07] MEDS: hydrOXYzine PAMOATE 25 MG CAPSULE (FP) PO PRN (21:32)
[2021-08-08] MEDS ORDERED: methaDONE HCL 40 MG DISPERSABLE TABLET ONE (02:23)
[2021-08-08] MEDS ORDERED: methaDONE HCL 10 MG TABLET ONE (02:23)
[2021-08-08] MEDS: FERROUS SO4 325 MG TABLET (FP) PO SCH ×2 (07:21→17:29)
[2021-08-08] MEDS: BICTEGRAV/EMTRICIT/TENOFOV (BIKTARVY) 50-200-25 MG TABLET PO SCH (10:57)
[2021-08-08] MEDS: SENNOSIDES 8.6MG TABLET (FP) PO SCH ×2 (10:57→22:07)
[2021-08-08] MEDS: PRENATAL VITAMINS W/ FOLIC ACID TABLET (FP) PO SCH (10:57)
[2021-08-08] MEDS: hydrOXYzine PAMOATE 25 MG CAPSULE (FP) PO PRN ×2 (10:58→22:07)
[2021-08-08] MEDS: MAGNESIUM HYDROX 2400MG/30ML ORAL SUSPENSION 30 ML CUP PO PRN (11:00)
[2021-08-08] MEDS: NICOTINE 14 MG/24 HOURS TOPICAL PATCH TD SCH (11:07)
[2021-08-08] MEDS: MELATONIN 5 MG TABLETS PO SCH (22:07)
[2021-08-08] MEDS: DOCUSATE SODIUM 100 MG CAPSULE (FP) PO SCH (22:07)
[2021-08-08] MEDS: THIAMINE HCL 100 MG TABLET (FP) PO SCH (22:07)
[2021-08-09] MEDS ORDERED: methaDONE HCL 40 MG DISPERSABLE TABLET ONE (04:32)
[2021-08-09] MEDS ORDERED: methaDONE HCL 10 MG TABLET ONE (04:32)
[2021-08-09] MEDS: FERROUS SO4 325 MG TABLET (FP) PO SCH (07:35)
[2021-08-09] MEDS: PRENATAL VITAMINS W/ FOLIC ACID TABLET (FP) PO SCH (10:46)
[2021-08-09] MEDS: BICTEGRAV/EMTRICIT/TENOFOV (BIKTARVY) 50-200-25 MG TABLET PO SCH (10:46)
[2021-08-09] MEDS: SENNOSIDES 8.6MG TABLET (FP) PO SCH ×2 (10:47→21:24)
[2021-08-09] MEDS: NICOTINE 14 MG/24 HOURS TOPICAL PATCH TD SCH (10:47)
[2021-08-09] MEDS: MAGNESIUM HYDROX 2400MG/30ML ORAL SUSPENSION 30 ML CUP PO PRN (10:47)
[2021-08-09] MEDS: ACETAMINOPHEN 325 MG TABLET (FP) PO PRN (16:13)
[2021-08-09] MEDS: MELATONIN 5 MG TABLETS PO SCH (21:24)
[2021-08-09] MEDS: DOCUSATE SODIUM 100 MG CAPSULE (FP) PO SCH (21:24)
[2021-08-09] MEDS: THIAMINE HCL 100 MG TABLET (FP) PO SCH (21:24)
[2021-08-09] MEDS: hydrOXYzine PAMOATE 25 MG CAPSULE (FP) PO PRN (21:25)
[2021-08-10] MEDS ORDERED: methaDONE HCL 10 MG TABLET ONE (03:53)
[2021-08-10] MEDS ORDERED: methaDONE HCL 40 MG DISPERSABLE TABLET ONE (03:54)
[2021-08-10] MEDS: PRENATAL VITAMINS W/ FOLIC ACID TABLET (FP) PO SCH (10:59)
[2021-08-10] MEDS: BICTEGRAV/EMTRICIT/TENOFOV (BIKTARVY) 50-200-25 MG TABLET PO SCH (10:59)
[2021-08-10] MEDS: SENNOSIDES 8.6MG TABLET (FP) PO SCH ×2 (11:00→21:43)
[2021-08-10] MEDS: NICOTINE 14 MG/24 HOURS TOPICAL PATCH TD SCH (11:01)
[2021-08-10] MEDS: BISACODYL 5 MG TABLET.DR (FP) PO PRN (11:01)
[2021-08-10] MEDS: MAGNESIUM HYDROX 2400MG/30ML ORAL SUSPENSION 30 ML CUP PO PRN (11:03)
[2021-08-10] MEDS ORDERED: FLU VACC QS2021-22(6MOS UP)/PF 60 MCG/0.5 ML SYRINGE IM ONE (12:00)
[2021-08-10] MEDS: THIAMINE HCL 100 MG TABLET (FP) PO SCH (21:43)
[2021-08-10] MEDS: DOCUSATE SODIUM 100 MG CAPSULE (FP) PO SCH (21:43)
[2021-08-10] MEDS: hydrOXYzine PAMOATE 25 MG CAPSULE (FP) PO PRN (21:43)
[2021-08-10] MEDS: MELATONIN 5 MG TABLETS PO SCH (21:44)
[2021-08-11] MEDS ORDERED: methaDONE HCL 40 MG DISPERSABLE TABLET ONE (06:41)
[2021-08-11] MEDS ORDERED: methaDONE HCL 10 MG TABLET ONE (06:41)
[2021-08-11] MEDS: NICOTINE 14 MG/24 HOURS TOPICAL PATCH TD SCH (10:21)
[2021-08-11] MEDS: BICTEGRAV/EMTRICIT/TENOFOV (BIKTARVY) 50-200-25 MG TABLET PO SCH (10:21)
[2021-08-11] MEDS: PRENATAL VITAMINS W/ FOLIC ACID TABLET (FP) PO SCH (10:21)
[2021-08-11] MEDS: SENNOSIDES 8.6MG TABLET (FP) PO SCH ×2 (10:22→21:40)
[2021-08-11] MEDS: MAGNESIUM HYDROX 2400MG/30ML ORAL SUSPENSION 30 ML CUP PO PRN (10:23)
[2021-08-11] MEDS: DOCUSATE SODIUM 100 MG CAPSULE (FP) PO SCH (21:40)
[2021-08-11] MEDS: THIAMINE HCL 100 MG TABLET (FP) PO SCH (21:40)
[2021-08-11] MEDS: hydrOXYzine PAMOATE 25 MG CAPSULE (FP) PO PRN (21:41)
[2021-08-11] MEDS: MELATONIN 5 MG TABLETS PO SCH (21:41)
[2021-08-12] MEDS ORDERED: methaDONE HCL 10 MG TABLET ONE (03:43)
[2021-08-12] MEDS ORDERED: methaDONE HCL 40 MG DISPERSABLE TABLET ONE (03:44)
[2021-08-12] MEDS: SENNOSIDES 8.6MG TABLET (FP) PO SCH ×2 (10:32→21:23)
[2021-08-12] MEDS: BICTEGRAV/EMTRICIT/TENOFOV (BIKTARVY) 50-200-25 MG TABLET PO SCH (10:32)
[2021-08-12] MEDS: PRENATAL VITAMINS W/ FOLIC ACID TABLET (FP) PO SCH (10:33)
[2021-08-12] MEDS: NICOTINE 14 MG/24 HOURS TOPICAL PATCH TD SCH (10:33)
[2021-08-12] MEDS: MAGNESIUM HYDROX 2400MG/30ML ORAL SUSPENSION 30 ML CUP PO PRN (10:34)
[2021-08-12] MEDS: THIAMINE HCL 100 MG TABLET (FP) PO SCH (21:23)
[2021-08-12] MEDS: MELATONIN 5 MG TABLETS PO SCH (21:23)
[2021-08-12] MEDS: hydrOXYzine PAMOATE 25 MG CAPSULE (FP) PO PRN (21:23)
[2021-08-12] MEDS: DOCUSATE SODIUM 100 MG CAPSULE (FP) PO SCH (21:23)
[2021-08-13] MEDS ORDERED: methaDONE HCL 10 MG TABLET ONE (03:09)
[2021-08-13] MEDS ORDERED: methaDONE HCL 40 MG DISPERSABLE TABLET ONE (03:10)
[2021-08-13 07:30] VITALS: BP 97/56; PULSE 81; TEMP 97.9
[2021-08-13] MEDS: PRENATAL VITAMINS W/ FOLIC ACID TABLET (FP) PO SCH (09:10)
[2021-08-13] MEDS: BICTEGRAV/EMTRICIT/TENOFOV (BIKTARVY) 50-200-25 MG TABLET PO SCH (09:10)
[2021-08-13] MEDS: NICOTINE 14 MG/24 HOURS TOPICAL PATCH TD SCH (09:10)
[2021-08-13] MEDS: SENNOSIDES 8.6MG TABLET (FP) PO SCH (09:11)
[2021-08-13] MEDS: BISACODYL 5 MG TABLET.DR (FP) PO PRN (09:11)
[2021-08-13] MEDS: ACETAMINOPHEN 325 MG TABLET (FP) PO PRN (09:17)
== END 2021-08-13 09:35 | disposition home or self-care (01) | DRG 772 ==
LOC: YASAS 22:45 → Y5N 22:46
PROVIDERS: ADMIT Allergy & Immunology; ATTEND Allergy & Immunology
PROC: HZ42ZZZ Group Counseling for Substance Abuse Treatment, Cognitive-Behavioral (ICD-10-PCS; principal; 2021-07-30)
DX: F11.20 Opioid dependence, uncomplicated (principal); F14.20 Cocaine dependence, uncomplicated; F13.20 Sedative, hypnotic or anxiolytic dependence, uncomplicated; F17.210 Nicotine dependence, cigarettes, uncomplicated; F19.24 Other psychoactive substance dependence with psychoactive substance-induced mood disorder; B20 Human immunodeficiency virus [HIV] disease; K59.09 Other constipation; Z88.1 Allergy status to other antibiotic agents
CPT/HCPCS: 36415; 80053; 85027; 90686; C9803; G0008; U0003; U0005

== ENCOUNTER 2022-02-03 22:55 | Inpatient (IN) | payer OTHER ==
[2022-02-03 23:34] VITALS: BMI 25.0
[2022-02-04] MEDS ORDERED: MAGNESIUM CITRATE 300 ML BOTTLE PO PRN (05:16)
[2022-02-04] MEDS ORDERED: ACETAMINOPHEN 325 MG TABLET (FP) PO PRN ×2 (05:16)
[2022-02-04] MEDS ORDERED: DICYCLOMINE HCL 10 MG CAPSULE PO PRN (05:16)
[2022-02-04] MEDS ORDERED: NICOTINE POLACRILEX 2 MG GUM BUC PRN (05:16)
[2022-02-04] MEDS ORDERED: MAG HYDROX/AL HYDROX/SIMETH 30 ML UNIT-DOSE CUP PO PRN (05:16)
[2022-02-04] MEDS ORDERED: MAGNESIUM HYDROX 2400MG/30ML ORAL SUSPENSION 30 ML CUP PO PRN (05:16)
[2022-02-04] MEDS ORDERED: LOPERAMIDE HCL 2 MG CAPSULE PO PRN (05:16)
[2022-02-04] MEDS ORDERED: ONDANSETRON *ODT* 4 MG TABLET SL PRN (05:16)
[2022-02-04] MEDS ORDERED: IBUPROFEN 400 MG TABLET (FP) PO PRN (05:16)
[2022-02-04] MEDS ORDERED: BISMUTH SUBSALICYLATE 524 MG/30 ML PO PRN (05:16)
[2022-02-04] MEDS ORDERED: BENZOCAINE/MENTHOL (CHLORASEPTIC ) LOZENGE MM PRN (05:16)
[2022-02-04] MEDS ORDERED: methaDONE HCL 10 MG TABLET PO ONE (14:48)
[2022-02-04] MEDS: NICOTINE 14 MG/24 HOURS TOPICAL PATCH TD SCH (16:11)
[2022-02-04] MEDS: PRENATAL VITAMINS W/ FOLIC ACID TABLET (FP) PO SCH (16:11)
[2022-02-04] MEDS: GABAPENTIN 300 MG CAPSULE PO SCH ×2 (18:28→22:33)
[2022-02-04] MEDS ORDERED: BISACODYL 10 MG SUPP.RECT PR SCH (22:00)
[2022-02-04] MEDS: LACTULOSE 20 GM/30 ML UDC (FOR ORAL USE ONLY) PO SCH (22:32)
[2022-02-04] MEDS: DOCUSATE SODIUM 100 MG CAPSULE (FP) PO SCH (22:32)
[2022-02-04] MEDS: THIAMINE HCL 100 MG TABLET (FP) PO SCH (22:33)
[2022-02-04] MEDS: MELATONIN 5 MG TABLETS PO SCH (22:33)
[2022-02-04] MEDS: METHOCARBAMOL 500 MG TABLET PO PRN (22:35)
[2022-02-05] MEDS: GABAPENTIN 300 MG CAPSULE PO SCH ×3 (06:28→22:49)
[2022-02-05] MEDS ORDERED: methaDONE HCL 40 MG DISPERSABLE TABLET PO SCH (07:45)
[2022-02-05] MEDS ORDERED: methaDONE HCL 10 MG TABLET ONE (08:32)
[2022-02-05] MEDS ORDERED: methaDONE HCL 40 MG DISPERSABLE TABLET ONE (08:32)
[2022-02-05] MEDS: BICTEGRAV/EMTRICIT/TENOFOV (BIKTARVY) 50-200-25 MG TABLET PO SCH (10:36)
[2022-02-05] MEDS: METHOCARBAMOL 500 MG TABLET PO PRN (10:36)
[2022-02-05] MEDS: PRENATAL VITAMINS W/ FOLIC ACID TABLET (FP) PO SCH (10:36)
[2022-02-05] MEDS: diazePAM 5 MG TABLET PO SCH ×3 (10:37→22:50)
[2022-02-05] MEDS: NICOTINE 14 MG/24 HOURS TOPICAL PATCH TD SCH (10:38)
[2022-02-05] MEDS: IBUPROFEN 600 MG TABLET (FP) PO PRN (18:22)
[2022-02-05] MEDS: BISACODYL 10 MG SUPP.RECT PR SCH (22:49)
[2022-02-05] MEDS: DOCUSATE SODIUM 100 MG CAPSULE (FP) PO SCH (22:49)
[2022-02-05] MEDS: MELATONIN 5 MG TABLETS PO SCH (22:49)
[2022-02-05] MEDS: LACTULOSE 20 GM/30 ML UDC (FOR ORAL USE ONLY) PO SCH (22:49)
[2022-02-05] MEDS: THIAMINE HCL 100 MG TABLET (FP) PO SCH (22:49)
[2022-02-06] MEDS ORDERED: methaDONE HCL 10 MG TABLET ONE (04:08)
[2022-02-06] MEDS ORDERED: methaDONE HCL 40 MG DISPERSABLE TABLET ONE (04:09)
[2022-02-06] MEDS: GABAPENTIN 300 MG CAPSULE PO SCH ×3 (06:11→22:08)
[2022-02-06] MEDS: diazePAM 5 MG TABLET PO SCH ×4 (06:12→22:09)
[2022-02-06] MEDS: PRENATAL VITAMINS W/ FOLIC ACID TABLET (FP) PO SCH (10:31)
[2022-02-06] MEDS: BICTEGRAV/EMTRICIT/TENOFOV (BIKTARVY) 50-200-25 MG TABLET PO SCH (10:31)
[2022-02-06] MEDS: NICOTINE 14 MG/24 HOURS TOPICAL PATCH TD SCH (10:31)
[2022-02-06] MEDS: IBUPROFEN 600 MG TABLET (FP) PO PRN ×2 (10:33→22:10)
[2022-02-06] MEDS: METHOCARBAMOL 500 MG TABLET PO PRN (18:34)
[2022-02-06] MEDS: DOCUSATE SODIUM 100 MG CAPSULE (FP) PO SCH (22:08)
[2022-02-06] MEDS: THIAMINE HCL 100 MG TABLET (FP) PO SCH (22:08)
[2022-02-06] MEDS: MELATONIN 5 MG TABLETS PO SCH (22:08)
[2022-02-06] MEDS: LACTULOSE 20 GM/30 ML UDC (FOR ORAL USE ONLY) PO SCH (22:08)
[2022-02-07] MEDS: BISACODYL 10 MG SUPP.RECT PR SCH (00:38)
[2022-02-07] MEDS ORDERED: methaDONE HCL 40 MG DISPERSABLE TABLET ONE (04:12)
[2022-02-07] MEDS ORDERED: methaDONE HCL 10 MG TABLET ONE (04:12)
[2022-02-07] MEDS: GABAPENTIN 300 MG CAPSULE PO SCH ×3 (05:31→23:17)
[2022-02-07] MEDS: diazePAM 5 MG TABLET PO SCH ×3 (05:31→23:17)
[2022-02-07 09:33] LABS: HEMATOCRIT 33.9 % (32.4-45.2); HEMOGLOBIN 11.5 GM/dL (10.7-15.3); MCH 31.1 pg (25.7-33.7); MCHC 33.9 g/dl (32.0-36.0); MEAN CELL VOLUME 91.9 fl (80-96); MEAN PLT VOLUME 8.1 fl (7.5-11.1); PLATELET COUNT 195 10^3/uL (134-434); RBC 3.69 M/mm3 (3.60-5.2); RDW 13.8 % (11.6-15.6); WHITE BLOOD COUNT 2.8 K/mm3 (4.0-10.0)
[2022-02-07 10:08] LABS: CALCIUM 9.5 mg/dL (8.5-10.1)
[2022-02-07 10:09] LABS: BLOOD UREA NITROGEN 11.8 mg/dL (7-18)
[2022-02-07 10:12] LABS: ALBUMIN 3.2 g/dl (3.4-5.0); CREATININE 0.9 mg/dL (0.55-1.3)
[2022-02-07 10:14] LABS: BILIRUBIN,TOTAL 0.4 mg/dL (0.2-1)
[2022-02-07] MEDS: diazePAM 5 MG TABLET PO PRN ×2 (10:35→18:28)
[2022-02-07] MEDS: BICTEGRAV/EMTRICIT/TENOFOV (BIKTARVY) 50-200-25 MG TABLET PO SCH (10:35)
[2022-02-07] MEDS: PRENATAL VITAMINS W/ FOLIC ACID TABLET (FP) PO SCH (10:35)
[2022-02-07] MEDS: NICOTINE 14 MG/24 HOURS TOPICAL PATCH TD SCH (10:36)
[2022-02-07] MEDS: hydrOXYzine PAMOATE 25 MG CAPSULE (FP) PO PRN ×2 (18:28→23:16)
[2022-02-07] MEDS: IBUPROFEN 600 MG TABLET (FP) PO PRN (18:29)
[2022-02-07] MEDS: DOCUSATE SODIUM 100 MG CAPSULE (FP) PO SCH (23:16)
[2022-02-07] MEDS: MELATONIN 5 MG TABLETS PO SCH (23:16)
[2022-02-07] MEDS: METHOCARBAMOL 500 MG TABLET PO PRN (23:17)
[2022-02-08] MEDS: BISACODYL 10 MG SUPP.RECT PR SCH ×2 (00:16→22:52)
[2022-02-08] MEDS: LACTULOSE 20 GM/30 ML UDC (FOR ORAL USE ONLY) PO SCH ×2 (00:16→22:53)
[2022-02-08] MEDS: THIAMINE HCL 100 MG TABLET (FP) PO SCH ×2 (00:16→22:51)
[2022-02-08] MEDS ORDERED: methaDONE HCL 10 MG TABLET ONE (04:32)
[2022-02-08] MEDS ORDERED: methaDONE HCL 40 MG DISPERSABLE TABLET ONE (04:33)
[2022-02-08] MEDS: GABAPENTIN 300 MG CAPSULE PO SCH ×3 (05:34→22:51)
[2022-02-08] MEDS: diazePAM 5 MG TABLET PO SCH ×2 (05:34→18:05)
[2022-02-08] MEDS: BICTEGRAV/EMTRICIT/TENOFOV (BIKTARVY) 50-200-25 MG TABLET PO SCH (10:42)
[2022-02-08] MEDS: METHOCARBAMOL 500 MG TABLET PO PRN ×2 (10:42→22:55)
[2022-02-08] MEDS: PRENATAL VITAMINS W/ FOLIC ACID TABLET (FP) PO SCH (10:42)
[2022-02-08] MEDS: hydrOXYzine PAMOATE 25 MG CAPSULE (FP) PO PRN ×2 (10:42→18:08)
[2022-02-08] MEDS: NICOTINE 14 MG/24 HOURS TOPICAL PATCH TD SCH (10:43)
[2022-02-08] MEDS: CLINDAMYCIN HCL 150 MG CAPSULE (FP) PO SCH ×2 (11:48→18:05)
[2022-02-08] MEDS: IBUPROFEN 600 MG TABLET (FP) PO PRN (18:05)
[2022-02-08] MEDS: DOCUSATE SODIUM 100 MG CAPSULE (FP) PO SCH (22:51)
[2022-02-08] MEDS: MELATONIN 5 MG TABLETS PO SCH (22:52)
[2022-02-09] MEDS: CLINDAMYCIN HCL 150 MG CAPSULE (FP) PO SCH ×3 (01:44→12:20)
[2022-02-09] MEDS ORDERED: methaDONE HCL 10 MG TABLET ONE (04:29)
[2022-02-09] MEDS ORDERED: methaDONE HCL 40 MG DISPERSABLE TABLET ONE (04:30)
[2022-02-09] MEDS: hydrOXYzine PAMOATE 25 MG CAPSULE (FP) PO PRN (05:43)
[2022-02-09] MEDS: GABAPENTIN 300 MG CAPSULE PO SCH ×2 (05:43→13:54)
[2022-02-09] MEDS ORDERED: diazePAM 5 MG TABLET PO ONE (06:00)
[2022-02-09 06:27] VITALS: RESP 18
[2022-02-09] MEDS: BICTEGRAV/EMTRICIT/TENOFOV (BIKTARVY) 50-200-25 MG TABLET PO SCH (10:36)
[2022-02-09] MEDS: METHOCARBAMOL 500 MG TABLET PO PRN (10:36)
[2022-02-09] MEDS: PRENATAL VITAMINS W/ FOLIC ACID TABLET (FP) PO SCH (10:36)
[2022-02-09] MEDS: NICOTINE 14 MG/24 HOURS TOPICAL PATCH TD SCH (10:36)
[2022-02-09 13:31] VITALS: BP 129/80; PULSE 93; TEMP 98.6
== END 2022-02-09 14:13 | disposition other institution (70) | DRG 773 ==
LOC: YASAS 22:55 → Y3N 02-04 05:25 → Y6N 02-06 11:15
PROVIDERS: ADMIT Surgery; ATTEND Surgery
PROC: HZ2ZZZZ Detoxification Services for Substance Abuse Treatment (ICD-10-PCS; principal; 2022-02-04)
DX: F13.230 Sedative, hypnotic or anxiolytic dependence with withdrawal, uncomplicated (principal); F11.20 Opioid dependence, uncomplicated; F14.20 Cocaine dependence, uncomplicated; F17.210 Nicotine dependence, cigarettes, uncomplicated; F34.1 Dysthymic disorder; F43.10 Post-traumatic stress disorder, unspecified; B20 Human immunodeficiency virus [HIV] disease; D72.819 Decreased white blood cell count, unspecified; K59.03 Drug induced constipation; B18.2 Chronic viral hepatitis C; R60.0 Localized edema; L03.116 Cellulitis of left lower limb; R00.1 Bradycardia, unspecified; D50.9 Iron deficiency anemia, unspecified
CPT/HCPCS: 36415; 80053; 81025; 85027; 86780; 93005; 93010; C9803-CS; U0003; U0005

== ENCOUNTER 2022-02-04 06:44 | Emergency (ER) | payer OTHER ==
[2022-02-04 07:05] VITALS: TEMP 97.3; BMI 24.0
[2022-02-04] MEDS ORDERED: DALBAVANCIN HCL 1,500 MG in DEXTROSE 5%-WATER - 500 ML IVPB ONE (07:29)
[2022-02-04] MEDS ORDERED: DALBAVANCIN HCL 500 MG VIAL (RESTRICTED TO ID ONLY) IVPB ONE (08:49)
[2022-02-04 09:09] LABS: CALCIUM 9.3 mg/dL (8.5-10.1)
[2022-02-04 09:10] LABS: ALBUMIN 3.2 g/dl (3.4-5.0); BLOOD UREA NITROGEN 19.9 mg/dL (7-18); MAGNESIUM 2.1 mg/dL (1.8-2.4)
[2022-02-04 09:13] LABS: PHOSPHOROUS 3.6 mg/dL (2.5-4.9)
[2022-02-04 09:14] LABS: BILIRUBIN,TOTAL 0.4 mg/dL (0.2-1); TOT PROT 9.1 g/dl (6.4-8.2)
[2022-02-04 09:20] LABS: BASO % 0.6 % (0-2.0); EOS % 1.3 % (0-4.5); HEMATOCRIT 29.2 % (32.4-45.2); LYMPH % 28.6 % (8-40); MCH 31.4 pg (25.7-33.7); MCHC 34.2 g/dl (32.0-36.0); MEAN CELL VOLUME 91.9 fl (80-96); MEAN PLT VOLUME 8.6 fl (7.5-11.1); MONO % 13.6 % (3.8-10.2); NEUT % 55.9 % (42.8-82.8); PLATELET COUNT 211 10^3/uL (134-434); RBC 3.18 M/mm3 (3.60-5.2); RDW 13.6 % (11.6-15.6); WHITE BLOOD COUNT 2.9 K/mm3 (4.0-10.0)
[2022-02-04 10:35] VITALS: BP 110/50; PULSE 60; RESP 18
== END 2022-02-04 11:50 | disposition home or self-care (01) ==
LOC: JER 06:44
DX: R00.1 Bradycardia, unspecified (principal); F13.20 Sedative, hypnotic or anxiolytic dependence, uncomplicated; L03.116 Cellulitis of left lower limb; B20 Human immunodeficiency virus [HIV] disease
CPT/HCPCS: 36415; 80053; 83735; 84100; 85025; 93005; 93010; 99284-25; J0875

== ENCOUNTER 2022-02-09 14:33 | Inpatient (IN) | payer OTHER ==
[2022-02-09] MEDS ORDERED: MAGNESIUM CITRATE 300 ML BOTTLE PO PRN (14:38)
[2022-02-09] MEDS ORDERED: MAG HYDROX/AL HYDROX/SIMETH 30 ML UNIT-DOSE CUP PO PRN (14:38)
[2022-02-09] MEDS ORDERED: LOPERAMIDE HCL 2 MG CAPSULE PO PRN (14:38)
[2022-02-09] MEDS ORDERED: guaiFENesin 200 MG/10 ML 10 ML UNIT-DOSE CUPS PO PRN (14:38)
[2022-02-09] MEDS ORDERED: IBUPROFEN 400 MG TABLET (FP) PO PRN (14:38)
[2022-02-09] MEDS ORDERED: MAGNESIUM HYDROX 2400MG/30ML ORAL SUSPENSION 30 ML CUP PO PRN (14:38)
[2022-02-09] MEDS ORDERED: P-EPHED 60MG/TRIPROLIDI 2.5MG TABLET PO PRN (14:38)
[2022-02-09] MEDS ORDERED: NICOTINE POLACRILEX 2 MG GUM BC PRN (14:38)
[2022-02-09] MEDS ORDERED: NICOTINE 10 MG CARTRIDGE (INHALER) IH PRN (14:38)
[2022-02-09] MEDS: CLINDAMYCIN HCL 150 MG CAPSULE (FP) PO SCH ×4 (15:30→22:10)
[2022-02-09] MEDS: ACETAMINOPHEN 325 MG TABLET (FP) PO PRN (17:15)
[2022-02-09] MEDS: hydrOXYzine PAMOATE 25 MG CAPSULE (FP) PO SCH ×2 (18:00→22:10)
[2022-02-09] MEDS: GABAPENTIN 300 MG CAPSULE PO SCH (22:09)
[2022-02-09] MEDS: DOCUSATE SODIUM 100 MG CAPSULE (FP) PO SCH (22:09)
[2022-02-09] MEDS: LACTULOSE 20 GM/30 ML UDC (FOR ORAL USE ONLY) PO SCH (22:09)
[2022-02-09] MEDS: THIAMINE HCL 100 MG TABLET (FP) PO SCH (22:09)
[2022-02-09] MEDS: MELATONIN 5 MG TABLETS PO SCH (22:10)
[2022-02-09] MEDS: BISACODYL 10 MG SUPP.RECT PR SCH (22:10)
[2022-02-10] MEDS ORDERED: methaDONE HCL 40 MG DISPERSABLE TABLET ONE (04:09)
[2022-02-10] MEDS ORDERED: methaDONE HCL 10 MG TABLET ONE (04:09)
[2022-02-10] MEDS ORDERED: methaDONE HCL 40 MG DISPERSABLE TABLET PO SCH (06:00)
[2022-02-10] MEDS: GABAPENTIN 300 MG CAPSULE PO SCH ×3 (06:25→22:12)
[2022-02-10] MEDS: hydrOXYzine PAMOATE 25 MG CAPSULE (FP) PO SCH ×5 (06:27→22:12)
[2022-02-10 10:03] LABS: BILIRUBIN,TOTAL 0.4 mg/dL (0.2-1)
[2022-02-10 10:04] LABS: TOT PROT 8.6 g/dl (6.4-8.2)
[2022-02-10 10:05] LABS: ALBUMIN 3.3 g/dl (3.4-5.0); BLOOD UREA NITROGEN 18.6 mg/dL (7-18); CALCIUM 9.2 mg/dL (8.5-10.1)
[2022-02-10 10:08] LABS: CREATININE 0.9 mg/dL (0.55-1.3)
[2022-02-10] MEDS: SERTRALINE HCL 50 MG TABLET (FP) PO SCH (10:40)
[2022-02-10] MEDS: PRENATAL VITAMINS W/ FOLIC ACID TABLET (FP) PO SCH (10:40)
[2022-02-10] MEDS: BICTEGRAV/EMTRICIT/TENOFOV (BIKTARVY) 50-200-25 MG TABLET PO SCH (10:40)
[2022-02-10] MEDS: NICOTINE 14 MG/24 HOURS TOPICAL PATCH TD SCH (10:41)
[2022-02-10] MEDS: CLINDAMYCIN HCL 150 MG CAPSULE (FP) PO SCH ×4 (10:41→22:12)
[2022-02-10] MEDS: DOCUSATE SODIUM 100 MG CAPSULE (FP) PO SCH (22:12)
[2022-02-10] MEDS: FAMOTIDINE 20 MG TABLET PO SCH (22:12)
[2022-02-10] MEDS: MELATONIN 5 MG TABLETS PO SCH (22:12)
[2022-02-10] MEDS: THIAMINE HCL 100 MG TABLET (FP) PO SCH (22:12)
[2022-02-10] MEDS: LACTULOSE 20 GM/30 ML UDC (FOR ORAL USE ONLY) PO SCH (22:12)
[2022-02-10] MEDS: BISACODYL 10 MG SUPP.RECT PR SCH (22:13)
[2022-02-11] MEDS ORDERED: methaDONE HCL 40 MG DISPERSABLE TABLET ONE (03:56)
[2022-02-11] MEDS ORDERED: methaDONE HCL 10 MG TABLET ONE (03:56)
[2022-02-11] MEDS: GABAPENTIN 300 MG CAPSULE PO SCH ×2 (06:36→13:55)
[2022-02-11] MEDS: ACETAMINOPHEN 325 MG TABLET (FP) PO PRN ×2 (06:39→13:55)
[2022-02-11] MEDS: hydrOXYzine PAMOATE 25 MG CAPSULE (FP) PO SCH ×3 (06:40→13:57)
[2022-02-11 07:30] VITALS: BP 101/53
[2022-02-11] MEDS: CLINDAMYCIN HCL 150 MG CAPSULE (FP) PO SCH ×2 (10:49→13:55)
[2022-02-11] MEDS: PRENATAL VITAMINS W/ FOLIC ACID TABLET (FP) PO SCH (10:49)
[2022-02-11] MEDS: BICTEGRAV/EMTRICIT/TENOFOV (BIKTARVY) 50-200-25 MG TABLET PO SCH (10:49)
[2022-02-11] MEDS: FAMOTIDINE 20 MG TABLET PO SCH (10:49)
[2022-02-11] MEDS: SERTRALINE HCL 50 MG TABLET (FP) PO SCH (10:49)
[2022-02-11] MEDS: NICOTINE 14 MG/24 HOURS TOPICAL PATCH TD SCH (10:50)
[2022-02-11] MEDS ORDERED: METHOCARBAMOL 500 MG TABLET PO PRN (14:15)
[2022-02-11 15:04] VITALS: PULSE 97; RESP 16; TEMP 97.3
== END 2022-02-11 23:25 | disposition short-term general hospital (02) | DRG 772 ==
LOC: YASAS 14:33 → Y5N 14:35
PROVIDERS: ADMIT Allergy & Immunology; ATTEND Internal Medicine
PROC: HZ42ZZZ Group Counseling for Substance Abuse Treatment, Cognitive-Behavioral (ICD-10-PCS; principal; 2022-02-09)
DX: F13.230 Sedative, hypnotic or anxiolytic dependence with withdrawal, uncomplicated (principal); F11.20 Opioid dependence, uncomplicated; F14.20 Cocaine dependence, uncomplicated; F17.213 Nicotine dependence, cigarettes, with withdrawal; F43.10 Post-traumatic stress disorder, unspecified; F33.9 Major depressive disorder, recurrent, unspecified; F19.24 Other psychoactive substance dependence with psychoactive substance-induced mood disorder; F19.282 Other psychoactive substance dependence with psychoactive substance-induced sleep disorder; F19.280 Other psychoactive substance dependence with psychoactive substance-induced anxiety disorder; B20 Human immunodeficiency virus [HIV] disease; R60.0 Localized edema; L03.116 Cellulitis of left lower limb; Z62.810 Personal history of physical and sexual abuse in childhood; Z91.410 Personal history of adult physical and sexual abuse; Z86.19 Personal history of other infectious and parasitic diseases; Z56.0 Unemployment, unspecified
CPT/HCPCS: 36415; 80053

== ENCOUNTER 2022-02-11 16:16 | Inpatient (IN) | payer OTHER ==
[2022-02-11] MEDS ORDERED: VANCOMYCIN 1 GM in D5W (PRE-DOCKED) 1,000 MG/250 ML IVPB ONE (17:16)
[2022-02-11] MEDS ORDERED: VANCOMYCIN/WATER FOR INJ (PEG) 1,000 MG/200 ML BAG IVPB ONE (17:42)
[2022-02-11 18:33] LABS: BASO % 0.7 % (0-2.0); EOS % 3.1 % (0-4.5); HEMOGLOBIN 10.8 GM/dL (10.7-15.3); LYMPH % 31.8 % (8-40); MCH 30.8 pg (25.7-33.7); MCHC 33.7 g/dl (32.0-36.0); MEAN CELL VOLUME 91.5 fl (80-96); MEAN PLT VOLUME 8.7 fl (7.5-11.1); MONO % 12.5 % (3.8-10.2); NEUT % 51.9 % (42.8-82.8); PLATELET COUNT 213 10^3/uL (134-434); RDW 13.6 % (11.6-15.6); WHITE BLOOD COUNT 3.3 K/mm3 (4.0-10.0)
[2022-02-11 18:42] LABS: INR 1.12 (0.83-1.09); PROTHROMBIN TIME (PATIENT) 12.9 SEC (9.7-13.0)
[2022-02-11 18:44] LABS: CHLORIDE 102 mmol/L (98-107); SODIUM 137 mmol/L (136-145)
[2022-02-11 18:45] LABS: ACTIVATED PTT 32.7 SECONDS (25.2-36.5)
[2022-02-11 18:47] LABS: CALCIUM 9.4 mg/dL (8.5-10.1)
[2022-02-11 18:48] LABS: ALBUMIN 3.3 g/dl (3.4-5.0); ANION GAP 6 MMOL/L (8-16); BLOOD UREA NITROGEN 21.6 mg/dL (7-18); CO2 29 mmol/L (21-32); GLUCOSE,RANDOM 101 mg/dL (74-106)
[2022-02-11 18:51] LABS: CREATININE 0.9 mg/dL (0.55-1.3); SGOT/AST 27 U/L (15-37); SGPT/ALT 22 U/L (13-61)
[2022-02-11 18:52] LABS: BILIRUBIN,TOTAL 0.3 mg/dL (0.2-1); TOT PROT 8.8 g/dl (6.4-8.2)
[2022-02-11 18:54] LABS: ALK PHOS 89 U/L (45-117)
[2022-02-11] MEDS ORDERED: ceFAZolin SODIUM 1 GM VIAL ONE (20:39)
[2022-02-11] MEDS ORDERED: ENOXAPARIN NA (PORCINE) 40 MG/0.4 ML DISP.SYRIN SQ ONE (20:39)
[2022-02-11] MEDS: LACTULOSE 20 GM/30 ML UDC (FOR ORAL USE ONLY) PO SCH (21:18)
[2022-02-11] MEDS: CEFAZOLIN 1 GM in DEXTROSE 5%-WATER - 50 ML IVPB SCH (21:18)
[2022-02-11] MEDS: DOCUSATE SODIUM 100 MG CAPSULE (FP) PO SCH (21:18)
[2022-02-11] MEDS: ENOXAPARIN NA (PORCINE) 40 MG/0.4 ML DISP.SYRIN SQ SCH (21:18)
[2022-02-11] MEDS: MIRTAZAPINE 15 MG TABLET (FP) PO SCH (21:19)
[2022-02-11] MEDS: BISACODYL 10 MG SUPP.RECT PR SCH (21:19)
[2022-02-11] MEDS: GABAPENTIN 300 MG CAPSULE PO SCH (21:19)
[2022-02-11 23:05] VITALS: BMI 26.1
[2022-02-12] MEDS: CEFAZOLIN 1 GM in DEXTROSE 5%-WATER - 50 ML IVPB SCH ×3 (03:56→17:41)
[2022-02-12] MEDS: GABAPENTIN 300 MG CAPSULE PO SCH ×3 (06:20→21:04)
[2022-02-12 09:06] LABS: BASO % 0.7 % (0-2.0); EOS % 2.8 % (0-4.5); HEMATOCRIT 31.9 % (32.4-45.2); HEMOGLOBIN 10.7 GM/dL (10.7-15.3); LYMPH % 24.8 % (8-40); MCH 30.6 pg (25.7-33.7); MCHC 33.6 g/dl (32.0-36.0); MEAN CELL VOLUME 91.2 fl (80-96); MEAN PLT VOLUME 7.9 fl (7.5-11.1); MONO % 10.5 % (3.8-10.2); NEUT % 61.2 % (42.8-82.8); PLATELET COUNT 215 10^3/uL (134-434); WHITE BLOOD COUNT 4.4 K/mm3 (4.0-10.0)
[2022-02-12 09:36] LABS: CALCIUM 9.1 mg/dL (8.5-10.1)
[2022-02-12 09:37] LABS: ALBUMIN 3.3 g/dl (3.4-5.0); BLOOD UREA NITROGEN 24.3 mg/dL (7-18)
[2022-02-12 09:39] LABS: BILIRUBIN,TOTAL 0.4 mg/dL (0.2-1); TOT PROT 8.7 g/dl (6.4-8.2)
[2022-02-12] MEDS ORDERED: methaDONE HCL 40 MG DISPERSABLE TABLET PO SCH (10:00)
[2022-02-12] MEDS ORDERED: PATIENT'S OWN MEDICATION (NON-FORMULARY) (Multivitamin [Daily Vite] 1 EACH Tablet) PO SCH (10:00)
[2022-02-12] MEDS: SULFAMETHOXAZOLE/TRIMETHOPRIM 800MG/160MG D.S. TABLET PO SCH (10:06)
[2022-02-12] MEDS: ENOXAPARIN NA (PORCINE) 40 MG/0.4 ML DISP.SYRIN SQ SCH (10:06)
[2022-02-12] MEDS: MULTIVITAMINS (DAILY MVI) TABLET (FP) PO SCH (10:06)
[2022-02-12] MEDS: BICTEGRAV/EMTRICIT/TENOFOV (BIKTARVY) 50-200-25 MG TABLET PO SCH (11:48)
[2022-02-12 14:23] LABS: MAGNESIUM 2.2 mg/dL (1.8-2.4)
[2022-02-12 14:37] LABS: PH,URINE 6.5 (5.0-8.0); URINE APPEARANCE CLEAR; URINE BILIRUBIN NEGATIVE (NEGATIVE); URINE COLOR YELLOW; URINE GLUCOSE (UA) NEGATIVE (NEGATIVE); URINE KETONE NEGATIVE (NEGATIVE); URINE LEUK ESTERASE NEGATIVE (NEGATIVE); URINE NITRITE NEGATIVE (NEGATIVE); URINE PROTEIN NEGATIVE (NEGATIVE)
[2022-02-12] MEDS: HYDROCORTISONE 0.5% TOPICAL CREAM 30 GM TUBE TP SCH ×2 (17:11→21:04)
[2022-02-12] MEDS: DOCUSATE SODIUM 100 MG CAPSULE (FP) PO SCH (21:04)
[2022-02-12] MEDS: LACTULOSE 20 GM/30 ML UDC (FOR ORAL USE ONLY) PO SCH (21:04)
[2022-02-12] MEDS: MIRTAZAPINE 15 MG TABLET (FP) PO SCH (21:04)
[2022-02-12] MEDS: BISACODYL 10 MG SUPP.RECT PR SCH (21:04)
[2022-02-13] MEDS: CEFAZOLIN 1 GM in DEXTROSE 5%-WATER - 50 ML IVPB SCH ×2 (01:03→10:05)
[2022-02-13] MEDS: GABAPENTIN 300 MG CAPSULE PO SCH ×3 (06:10→22:03)
[2022-02-13] MEDS: SULFAMETHOXAZOLE/TRIMETHOPRIM 800MG/160MG D.S. TABLET PO SCH (10:05)
[2022-02-13] MEDS: MULTIVITAMINS (DAILY MVI) TABLET (FP) PO SCH (10:05)
[2022-02-13] MEDS: BICTEGRAV/EMTRICIT/TENOFOV (BIKTARVY) 50-200-25 MG TABLET PO SCH (10:05)
[2022-02-13] MEDS: HYDROCORTISONE 0.5% TOPICAL CREAM 30 GM TUBE TP SCH ×2 (10:05→22:04)
[2022-02-13] MEDS: ENOXAPARIN NA (PORCINE) 40 MG/0.4 ML DISP.SYRIN SQ SCH (10:06)
[2022-02-13 12:07] LABS: CHLORIDE 105 mmol/L (98-107); SODIUM 138 mmol/L (136-145)
[2022-02-13 12:10] LABS: BLOOD UREA NITROGEN 21.7 mg/dL (7-18); CALCIUM 9.2 mg/dL (8.5-10.1); GLUCOSE,RANDOM 103 mg/dL (74-106)
[2022-02-13 12:11] LABS: ALBUMIN 3.3 g/dl (3.4-5.0); ANION GAP 8 MMOL/L (8-16); CO2 25 mmol/L (21-32)
[2022-02-13 12:14] LABS: SGOT/AST 31 U/L (15-37); SGPT/ALT 23 U/L (13-61)
[2022-02-13 12:15] LABS: BILIRUBIN,TOTAL 0.7 mg/dL (0.2-1); TOT PROT 8.6 g/dl (6.4-8.2)
[2022-02-13 12:16] LABS: ALK PHOS 77 U/L (45-117)
[2022-02-13 12:22] LABS: HEMATOCRIT 31.3 % (32.4-45.2); HEMOGLOBIN 10.7 GM/dL (10.7-15.3); MCH 31.4 pg (25.7-33.7); MCHC 34.2 g/dl (32.0-36.0); MEAN PLT VOLUME 8.8 fl (7.5-11.1); PLATELET COUNT 227 10^3/uL (134-434); RDW 14.2 % (11.6-15.6)
[2022-02-13 12:27] LABS: WHITE BLOOD COUNT 6.7 K/mm3 (4.0-10.0)
[2022-02-13 12:45] LABS: ANISOCYTOSIS 0; HELMET CELLS 0; HOWELL-JOLLY BODIES 0; MACROCYTOSIS 0; OVALOCYTE 0; ROULEAU 0; SICKELED CELLS 0; TARGET CELLS 0; TEAR DROP CELLS 0; TOXIC GRANULATION 0
[2022-02-13 12:50] LABS: PLATELET ESTIMATE ADEQUATE
[2022-02-13 13:00] LABS: ERYTHROCYTE SEDIMENTATION RATE 102 mm/hr (0-20)
[2022-02-13] MEDS: BISACODYL 10 MG SUPP.RECT PR SCH (22:03)
[2022-02-13] MEDS: LACTULOSE 20 GM/30 ML UDC (FOR ORAL USE ONLY) PO SCH (22:03)
[2022-02-13] MEDS: DOCUSATE SODIUM 100 MG CAPSULE (FP) PO SCH (22:03)
[2022-02-13] MEDS: MIRTAZAPINE 15 MG TABLET (FP) PO SCH (22:03)
[2022-02-14 01:37] VITALS: RESP 18
[2022-02-14] MEDS: GABAPENTIN 300 MG CAPSULE PO SCH ×2 (05:57→13:01)
[2022-02-14 06:46] VITALS: BP 95/55; PULSE 71; TEMP 98
[2022-02-14] MEDS: ENOXAPARIN NA (PORCINE) 40 MG/0.4 ML DISP.SYRIN SQ SCH (09:39)
[2022-02-14] MEDS: MULTIVITAMINS (DAILY MVI) TABLET (FP) PO SCH (09:39)
[2022-02-14] MEDS: BICTEGRAV/EMTRICIT/TENOFOV (BIKTARVY) 50-200-25 MG TABLET PO SCH (09:39)
[2022-02-14] MEDS: SULFAMETHOXAZOLE/TRIMETHOPRIM 800MG/160MG D.S. TABLET PO SCH (09:39)
[2022-02-14] MEDS: HYDROCORTISONE 0.5% TOPICAL CREAM 30 GM TUBE TP SCH (09:40)
== END 2022-02-14 13:59 | disposition other institution (70) | DRG 385 ==
LOC: JER 16:16 → JERBED 18:13 → J8W 21:01
PROVIDERS: ADMIT Internal Medicine; ATTEND Internal Medicine
DX: L52 Erythema nodosum (principal); B20 Human immunodeficiency virus [HIV] disease; F11.20 Opioid dependence, uncomplicated; G62.9 Polyneuropathy, unspecified; B19.20 Unspecified viral hepatitis C without hepatic coma; F19.90 Other psychoactive substance use, unspecified, uncomplicated; I77.6 Arteritis, unspecified; F32.9 Major depressive disorder, single episode, unspecified; F43.12 Post-traumatic stress disorder, chronic
CPT/HCPCS: 36415; 73590-TC-LT-FY; 80048; 80053; 81003; 83735; 85025; 85610; 85651; 85730; 86140; 86359; 86360; 86803; 86850; 86900; 86901; 87040; 87522; 93970-TC; 99285-25; C9803-CS; U0003; U0005

== ENCOUNTER 2022-02-14 16:11 | Inpatient (IN) | payer OTHER ==
[2022-02-14 18:10] VITALS: BMI 26.1
[2022-02-14] MEDS ORDERED: LOPERAMIDE HCL 2 MG CAPSULE PO PRN (18:41)
[2022-02-14] MEDS ORDERED: MAGNESIUM CITRATE 300 ML BOTTLE PO PRN (18:41)
[2022-02-14] MEDS ORDERED: guaiFENesin 200 MG/10 ML 10 ML UNIT-DOSE CUPS PO PRN (18:41)
[2022-02-14] MEDS ORDERED: MAGNESIUM HYDROX 2400MG/30ML ORAL SUSPENSION 30 ML CUP PO PRN (18:41)
[2022-02-14] MEDS ORDERED: ACETAMINOPHEN 325 MG TABLET (FP) PO PRN (18:41)
[2022-02-14] MEDS ORDERED: NICOTINE POLACRILEX 2 MG GUM BUC PRN (18:41)
[2022-02-14] MEDS ORDERED: BENZOCAINE/MENTHOL (CHLORASEPTIC ) LOZENGE MM PRN (18:41)
[2022-02-14] MEDS ORDERED: MAG HYDROX/AL HYDROX/SIMETH 30 ML UNIT-DOSE CUP PO PRN (18:41)
[2022-02-14] MEDS ORDERED: P-EPHED 60MG/TRIPROLIDI 2.5MG TABLET PO PRN (18:41)
[2022-02-14] MEDS ORDERED: MELATONIN 5 MG TABLETS PO SCH (22:00)
[2022-02-14] MEDS ORDERED: MIRTAZAPINE 15 MG TABLET (FP) PO ONE (22:00)
[2022-02-15] MEDS: GABAPENTIN 300 MG CAPSULE PO SCH ×4 (01:14→21:58)
[2022-02-15] MEDS: LACTULOSE 20 GM/30 ML UDC (FOR ORAL USE ONLY) PO SCH ×2 (01:14→21:58)
[2022-02-15] MEDS: DOCUSATE SODIUM 100 MG CAPSULE (FP) PO SCH ×2 (01:15→21:58)
[2022-02-15] MEDS: IBUPROFEN 400 MG TABLET (FP) PO PRN ×2 (01:20→13:56)
[2022-02-15] MEDS: THIAMINE HCL 100 MG TABLET (FP) PO SCH ×2 (01:20→21:59)
[2022-02-15] MEDS: CHOLECALCIFEROL (VIT D3) 5000 UNITS (125 MCG) CAP PO SCH ×2 (01:24→09:37)
[2022-02-15] MEDS: HYDROCORTISONE 0.5% TOPICAL CREAM 30 GM TUBE TP SCH ×3 (01:25→21:58)
[2022-02-15] MEDS ORDERED: TUBERCULIN PPD 5 TU/0.1ML VIAL ID ONE (05:50)
[2022-02-15] MEDS ORDERED: methaDONE HCL 40 MG DISPERSABLE TABLET PO SCH (09:00)
[2022-02-15] MEDS: BICTEGRAV/EMTRICIT/TENOFOV (BIKTARVY) 50-200-25 MG TABLET PO SCH (09:37)
[2022-02-15] MEDS: IBUPROFEN 400 MG TABLET (FP) PO SCH ×4 (09:37→13:57)
[2022-02-15] MEDS: SULFAMETHOXAZOLE/TRIMETHOPRIM 800MG/160MG D.S. TABLET PO SCH (09:37)
[2022-02-15] MEDS: PRENATAL VITAMINS W/ FOLIC ACID TABLET (FP) PO SCH (09:37)
[2022-02-15] MEDS: SERTRALINE HCL 50 MG TABLET (FP) PO SCH (13:57)
[2022-02-15] MEDS: MELATONIN 5 MG TABLETS PO SCH (21:58)
[2022-02-15] MEDS: hydrOXYzine PAMOATE 25 MG CAPSULE (FP) PO PRN (22:00)
[2022-02-16] MEDS: GABAPENTIN 300 MG CAPSULE PO SCH ×3 (06:28→21:56)
[2022-02-16] MEDS: PRENATAL VITAMINS W/ FOLIC ACID TABLET (FP) PO SCH (09:34)
[2022-02-16] MEDS: SULFAMETHOXAZOLE/TRIMETHOPRIM 800MG/160MG D.S. TABLET PO SCH (09:34)
[2022-02-16] MEDS: SERTRALINE HCL 50 MG TABLET (FP) PO SCH (09:34)
[2022-02-16] MEDS: IBUPROFEN 400 MG TABLET (FP) PO PRN (09:34)
[2022-02-16] MEDS: HYDROCORTISONE 0.5% TOPICAL CREAM 30 GM TUBE TP SCH ×2 (09:35→21:57)
[2022-02-16] MEDS: BICTEGRAV/EMTRICIT/TENOFOV (BIKTARVY) 50-200-25 MG TABLET PO SCH (09:35)
[2022-02-16] MEDS: hydrOXYzine PAMOATE 25 MG CAPSULE (FP) PO PRN ×2 (09:37→21:57)
[2022-02-16] MEDS: CHOLECALCIFEROL (VIT D3) 5000 UNITS (125 MCG) CAP PO SCH (09:39)
[2022-02-16] MEDS: DOCUSATE SODIUM 100 MG CAPSULE (FP) PO SCH (21:56)
[2022-02-16] MEDS: MELATONIN 5 MG TABLETS PO SCH (21:57)
[2022-02-16] MEDS: THIAMINE HCL 100 MG TABLET (FP) PO SCH (21:57)
[2022-02-16] MEDS: LACTULOSE 20 GM/30 ML UDC (FOR ORAL USE ONLY) PO SCH (21:58)
[2022-02-17] MEDS: GABAPENTIN 300 MG CAPSULE PO SCH ×3 (06:18→21:07)
[2022-02-17 07:39] VITALS: RESP 18
[2022-02-17] MEDS: PRENATAL VITAMINS W/ FOLIC ACID TABLET (FP) PO SCH (10:49)
[2022-02-17] MEDS: SULFAMETHOXAZOLE/TRIMETHOPRIM 800MG/160MG D.S. TABLET PO SCH (10:49)
[2022-02-17] MEDS: HYDROCORTISONE 0.5% TOPICAL CREAM 30 GM TUBE TP SCH ×2 (10:50→21:07)
[2022-02-17] MEDS: BICTEGRAV/EMTRICIT/TENOFOV (BIKTARVY) 50-200-25 MG TABLET PO SCH (10:50)
[2022-02-17] MEDS: SERTRALINE HCL 50 MG TABLET (FP) PO SCH (10:50)
[2022-02-17] MEDS: hydrOXYzine PAMOATE 25 MG CAPSULE (FP) PO PRN ×2 (10:50→21:07)
[2022-02-17] MEDS: CHOLECALCIFEROL (VIT D3) 5000 UNITS (125 MCG) CAP PO SCH (10:51)
[2022-02-17] MEDS: IBUPROFEN 400 MG TABLET (FP) PO PRN (10:52)
[2022-02-17] MEDS: DOCUSATE SODIUM 100 MG CAPSULE (FP) PO SCH (21:06)
[2022-02-17] MEDS: LACTULOSE 20 GM/30 ML UDC (FOR ORAL USE ONLY) PO SCH (21:06)
[2022-02-17] MEDS: MELATONIN 5 MG TABLETS PO SCH (21:07)
[2022-02-17] MEDS: THIAMINE HCL 100 MG TABLET (FP) PO SCH (21:07)
[2022-02-18] MEDS: GABAPENTIN 300 MG CAPSULE PO SCH ×3 (06:34→21:07)
[2022-02-18] MEDS: hydrOXYzine PAMOATE 25 MG CAPSULE (FP) PO PRN (10:53)
[2022-02-18] MEDS: PRENATAL VITAMINS W/ FOLIC ACID TABLET (FP) PO SCH (10:53)
[2022-02-18] MEDS: BICTEGRAV/EMTRICIT/TENOFOV (BIKTARVY) 50-200-25 MG TABLET PO SCH (10:53)
[2022-02-18] MEDS: SULFAMETHOXAZOLE/TRIMETHOPRIM 800MG/160MG D.S. TABLET PO SCH (10:53)
[2022-02-18] MEDS: SERTRALINE HCL 50 MG TABLET (FP) PO SCH (10:53)
[2022-02-18] MEDS: HYDROCORTISONE 0.5% TOPICAL CREAM 30 GM TUBE TP SCH ×2 (10:53→21:09)
[2022-02-18] MEDS: CHOLECALCIFEROL (VIT D3) 5000 UNITS (125 MCG) CAP PO SCH (12:25)
[2022-02-18] MEDS: IBUPROFEN 400 MG TABLET (FP) PO PRN (14:08)
[2022-02-18] MEDS: DOCUSATE SODIUM 100 MG CAPSULE (FP) PO SCH (21:07)
[2022-02-18] MEDS: MELATONIN 5 MG TABLETS PO SCH (21:07)
[2022-02-18] MEDS: THIAMINE HCL 100 MG TABLET (FP) PO SCH (21:07)
[2022-02-18] MEDS: LACTULOSE 20 GM/30 ML UDC (FOR ORAL USE ONLY) PO SCH (21:08)
[2022-02-19] MEDS: GABAPENTIN 300 MG CAPSULE PO SCH ×3 (06:37→21:11)
[2022-02-19] MEDS: SERTRALINE HCL 50 MG TABLET (FP) PO SCH (10:21)
[2022-02-19] MEDS: PRENATAL VITAMINS W/ FOLIC ACID TABLET (FP) PO SCH (10:21)
[2022-02-19] MEDS: SULFAMETHOXAZOLE/TRIMETHOPRIM 800MG/160MG D.S. TABLET PO SCH (10:21)
[2022-02-19] MEDS: CHOLECALCIFEROL (VIT D3) 5000 UNITS (125 MCG) CAP PO SCH (10:21)
[2022-02-19] MEDS: BICTEGRAV/EMTRICIT/TENOFOV (BIKTARVY) 50-200-25 MG TABLET PO SCH (10:21)
[2022-02-19] MEDS: HYDROCORTISONE 0.5% TOPICAL CREAM 30 GM TUBE TP SCH ×2 (10:22→21:45)
[2022-02-19] MEDS: DOCUSATE SODIUM 100 MG CAPSULE (FP) PO SCH (21:11)
[2022-02-19] MEDS: LACTULOSE 20 GM/30 ML UDC (FOR ORAL USE ONLY) PO SCH (21:11)
[2022-02-19] MEDS: MELATONIN 5 MG TABLETS PO SCH (21:11)
[2022-02-19] MEDS: THIAMINE HCL 100 MG TABLET (FP) PO SCH (21:11)
[2022-02-19] MEDS: hydrOXYzine PAMOATE 25 MG CAPSULE (FP) PO PRN (21:12)
[2022-02-20] MEDS: GABAPENTIN 300 MG CAPSULE PO SCH ×3 (07:05→21:08)
[2022-02-20] MEDS: PRENATAL VITAMINS W/ FOLIC ACID TABLET (FP) PO SCH (10:42)
[2022-02-20] MEDS: HYDROCORTISONE 0.5% TOPICAL CREAM 30 GM TUBE TP SCH ×2 (10:42→21:09)
[2022-02-20] MEDS: CHOLECALCIFEROL (VIT D3) 5000 UNITS (125 MCG) CAP PO SCH (10:43)
[2022-02-20] MEDS: BICTEGRAV/EMTRICIT/TENOFOV (BIKTARVY) 50-200-25 MG TABLET PO SCH (10:43)
[2022-02-20] MEDS: SERTRALINE HCL 50 MG TABLET (FP) PO SCH (10:43)
[2022-02-20] MEDS: SULFAMETHOXAZOLE/TRIMETHOPRIM 800MG/160MG D.S. TABLET PO SCH (10:43)
[2022-02-20] MEDS: IBUPROFEN 400 MG TABLET (FP) PO PRN (13:52)
[2022-02-20] MEDS: PRAZOSIN HCL 1 MG CAPSULE PO SCH (21:08)
[2022-02-20] MEDS: LACTULOSE 20 GM/30 ML UDC (FOR ORAL USE ONLY) PO SCH (21:08)
[2022-02-20] MEDS: THIAMINE HCL 100 MG TABLET (FP) PO SCH (21:08)
[2022-02-20] MEDS: DOCUSATE SODIUM 100 MG CAPSULE (FP) PO SCH (21:08)
[2022-02-20] MEDS: MELATONIN 5 MG TABLETS PO SCH (21:09)
[2022-02-21] MEDS: GABAPENTIN 300 MG CAPSULE PO SCH ×3 (06:32→21:07)
[2022-02-21] MEDS: CHOLECALCIFEROL (VIT D3) 5000 UNITS (125 MCG) CAP PO SCH (10:57)
[2022-02-21] MEDS: PRENATAL VITAMINS W/ FOLIC ACID TABLET (FP) PO SCH (10:57)
[2022-02-21] MEDS: HYDROCORTISONE 0.5% TOPICAL CREAM 30 GM TUBE TP SCH ×2 (10:57→21:45)
[2022-02-21] MEDS: SERTRALINE HCL 50 MG TABLET (FP) PO SCH (10:57)
[2022-02-21] MEDS: BICTEGRAV/EMTRICIT/TENOFOV (BIKTARVY) 50-200-25 MG TABLET PO SCH (10:57)
[2022-02-21] MEDS: SULFAMETHOXAZOLE/TRIMETHOPRIM 800MG/160MG D.S. TABLET PO SCH (10:57)
[2022-02-21] MEDS: LACTULOSE 20 GM/30 ML UDC (FOR ORAL USE ONLY) PO SCH (21:06)
[2022-02-21] MEDS: DOCUSATE SODIUM 100 MG CAPSULE (FP) PO SCH (21:06)
[2022-02-21] MEDS: MELATONIN 5 MG TABLETS PO SCH (21:07)
[2022-02-21] MEDS: PRAZOSIN HCL 1 MG CAPSULE PO SCH (21:07)
[2022-02-21] MEDS: THIAMINE HCL 100 MG TABLET (FP) PO SCH (21:07)
[2022-02-22] MEDS: GABAPENTIN 300 MG CAPSULE PO SCH (06:48)
[2022-02-22 07:32] VITALS: BP 104/69; PULSE 83; TEMP 97.3
[2022-02-22] MEDS: PRENATAL VITAMINS W/ FOLIC ACID TABLET (FP) PO SCH (09:41)
[2022-02-22] MEDS: BICTEGRAV/EMTRICIT/TENOFOV (BIKTARVY) 50-200-25 MG TABLET PO SCH (09:41)
[2022-02-22] MEDS: SERTRALINE HCL 50 MG TABLET (FP) PO SCH (09:42)
[2022-02-22] MEDS: SULFAMETHOXAZOLE/TRIMETHOPRIM 800MG/160MG D.S. TABLET PO SCH (09:42)
[2022-02-22] MEDS: CHOLECALCIFEROL (VIT D3) 5000 UNITS (125 MCG) CAP PO SCH (09:42)
[2022-02-22] MEDS: HYDROCORTISONE 0.5% TOPICAL CREAM 30 GM TUBE TP SCH (09:43)
== END 2022-02-22 11:21 | disposition home or self-care (01) | DRG 772 ==
LOC: YASAS 16:11 → Y5N 02-15 00:43
PROVIDERS: ADMIT Allergy & Immunology; ATTEND Psychiatry & Neurology Pain Medicine
PROC: HZ42ZZZ Group Counseling for Substance Abuse Treatment, Cognitive-Behavioral (ICD-10-PCS; principal; 2022-02-15)
DX: F11.20 Opioid dependence, uncomplicated (principal); F14.20 Cocaine dependence, uncomplicated; F13.20 Sedative, hypnotic or anxiolytic dependence, uncomplicated; F19.282 Other psychoactive substance dependence with psychoactive substance-induced sleep disorder; F32.A Depression, unspecified; B20 Human immunodeficiency virus [HIV] disease; L03.116 Cellulitis of left lower limb; L52 Erythema nodosum; Z86.19 Personal history of other infectious and parasitic diseases; Z88.1 Allergy status to other antibiotic agents
CPT/HCPCS: 82306; C9803-CS; U0003; U0005

== ENCOUNTER 2022-05-27 22:25 | Inpatient (IN) | payer OTHER ==
[2022-05-27] MEDS ORDERED: BENZOCAINE/MENTHOL (CHLORASEPTIC ) LOZENGE MM PRN (23:18)
[2022-05-27] MEDS ORDERED: hydrOXYzine PAMOATE 25 MG CAPSULE (FP) PO PRN (23:18)
[2022-05-27] MEDS ORDERED: IBUPROFEN 400 MG TABLET (FP) PO PRN (23:18)
[2022-05-27] MEDS ORDERED: DICYCLOMINE HCL 10 MG CAPSULE PO PRN (23:18)
[2022-05-27] MEDS ORDERED: BISMUTH SUBSALICYLATE 524 MG/30 ML PO PRN (23:18)
[2022-05-27] MEDS ORDERED: MAGNESIUM HYDROX 2400MG/30ML ORAL SUSPENSION 30 ML CUP PO PRN (23:18)
[2022-05-27] MEDS ORDERED: MAG HYDROX/AL HYDROX/SIMETH 30 ML UNIT-DOSE CUP PO PRN (23:18)
[2022-05-27] MEDS ORDERED: METHOCARBAMOL 500 MG TABLET PO PRN (23:18)
[2022-05-27] MEDS ORDERED: P-EPHED 60MG/TRIPROLIDI 2.5MG TABLET PO PRN (23:18)
[2022-05-27] MEDS ORDERED: NICOTINE 10 MG CARTRIDGE (INHALER) IH PRN (23:18)
[2022-05-27] MEDS ORDERED: POLYETHYLENE GLYCOL (HEALTHYLAX) 3350 17 GM PACKET PO PRN (23:18)
[2022-05-27] MEDS ORDERED: ONDANSETRON *ODT* 4 MG TABLET SL PRN (23:18)
[2022-05-27] MEDS ORDERED: NALOXONE HCL 0.4 MG/ML VIAL IM PRN (23:18)
[2022-05-27] MEDS ORDERED: LOPERAMIDE HCL 2 MG CAPSULE PO PRN (23:18)
[2022-05-27] MEDS ORDERED: guaiFENesin 200 MG/10 ML 10 ML UNIT-DOSE CUPS PO PRN (23:18)
[2022-05-27] MEDS ORDERED: NALOXONE HCL (KLOXXADO) 8 MG SPRAY NS PRN (23:18)
[2022-05-27] MEDS ORDERED: IBUPROFEN 600 MG TABLET (FP) PO PRN (23:18)
[2022-05-27] MEDS ORDERED: ACETAMINOPHEN 325 MG TABLET (FP) PO PRN ×2 (23:18)
[2022-05-27 23:19] VITALS: BMI 24.2
[2022-05-27] MEDS ORDERED: DOCUSATE SODIUM 100 MG CAPSULE (FP) PO PRN (23:21)
[2022-05-28] MEDS: diazePAM 5 MG TABLET PO SCH ×5 (00:56→22:13)
[2022-05-28] MEDS: diazePAM 5 MG TABLET PO PRN (00:58)
[2022-05-28] MEDS ORDERED: methaDONE HCL 10 MG TABLET PO SCH (09:30)
[2022-05-28] MEDS: PRENATAL VITAMINS W/ FOLIC ACID TABLET (FP) PO SCH (10:23)
[2022-05-28] MEDS: SULFAMETHOXAZOLE/TRIMETHOPRIM 800MG/160MG D.S. TABLET PO SCH (10:25)
[2022-05-28] MEDS: BICTEGRAV/EMTRICIT/TENOFOV (BIKTARVY) 50-200-25 MG TABLET PO SCH (10:25)
[2022-05-28] MEDS ORDERED: MIRTAZAPINE 15 MG TABLET (FP) PO SCH (22:00)
[2022-05-28] MEDS ORDERED: DOCUSATE SODIUM 100 MG CAPSULE (FP) PO SCH (22:00)
[2022-05-28] MEDS: THIAMINE HCL 100 MG TABLET (FP) PO SCH (22:12)
[2022-05-28] MEDS: SUVOREXANT 10 MG TABLET PO PRN (22:13)
[2022-05-29] MEDS: diazePAM 5 MG TABLET PO SCH ×3 (05:57→22:05)
[2022-05-29] MEDS: SULFAMETHOXAZOLE/TRIMETHOPRIM 800MG/160MG D.S. TABLET PO SCH (10:33)
[2022-05-29] MEDS: BICTEGRAV/EMTRICIT/TENOFOV (BIKTARVY) 50-200-25 MG TABLET PO SCH (10:33)
[2022-05-29] MEDS: PRENATAL VITAMINS W/ FOLIC ACID TABLET (FP) PO SCH (10:33)
[2022-05-29] MEDS: diazePAM 5 MG TABLET PO PRN (10:34)
[2022-05-29 10:38] LABS: HEMATOCRIT 31.9 % (32.4-45.2); HEMOGLOBIN 10.6 GM/dL (10.7-15.3); MCH 31.1 pg (25.7-33.7); MCHC 33.2 g/dl (32.0-36.0); MEAN CELL VOLUME 93.6 fl (80-96); MEAN PLT VOLUME 8.2 fl (7.5-11.1); PLATELET COUNT 172 10^3/uL (134-434); RBC 3.41 M/mm3 (3.60-5.2); RDW 12.6 % (11.6-15.6); WHITE BLOOD COUNT 2.4 K/mm3 (4.0-10.0)
[2022-05-29 10:39] LABS: CALCIUM 9.1 mg/dL (8.5-10.1)
[2022-05-29 10:40] LABS: ALBUMIN 3.1 g/dl (3.4-5.0); BLOOD UREA NITROGEN 17.2 mg/dL (7-18)
[2022-05-29 10:43] LABS: CREATININE 0.9 mg/dL (0.55-1.3)
[2022-05-29 10:45] LABS: BILIRUBIN,TOTAL 0.2 mg/dL (0.2-1); TOT PROT 8.9 g/dl (6.4-8.2)
[2022-05-29] MEDS: SUVOREXANT 10 MG TABLET PO PRN (22:04)
[2022-05-29] MEDS: THIAMINE HCL 100 MG TABLET (FP) PO SCH (22:05)
[2022-05-30] MEDS: diazePAM 5 MG TABLET PO SCH ×2 (06:16→17:44)
[2022-05-30] MEDS: PRENATAL VITAMINS W/ FOLIC ACID TABLET (FP) PO SCH (10:19)
[2022-05-30] MEDS: diazePAM 5 MG TABLET PO PRN (10:19)
[2022-05-30] MEDS: BICTEGRAV/EMTRICIT/TENOFOV (BIKTARVY) 50-200-25 MG TABLET PO SCH (10:19)
[2022-05-30] MEDS: SULFAMETHOXAZOLE/TRIMETHOPRIM 800MG/160MG D.S. TABLET PO SCH (10:19)
[2022-05-30] MEDS: THIAMINE HCL 100 MG TABLET (FP) PO SCH (22:11)
[2022-05-30] MEDS: SUVOREXANT 10 MG TABLET PO PRN (22:12)
[2022-05-31] MEDS ORDERED: diazePAM 5 MG TABLET PO ONE (06:00)
[2022-05-31 09:35] VITALS: BP 100/62; PULSE 74; RESP 16; TEMP 96.6
[2022-05-31] MEDS: SULFAMETHOXAZOLE/TRIMETHOPRIM 800MG/160MG D.S. TABLET PO SCH (10:27)
[2022-05-31] MEDS: BICTEGRAV/EMTRICIT/TENOFOV (BIKTARVY) 50-200-25 MG TABLET PO SCH (10:27)
[2022-05-31] MEDS: PRENATAL VITAMINS W/ FOLIC ACID TABLET (FP) PO SCH (10:27)
== END 2022-05-31 12:53 | disposition other institution (70) | DRG 773 ==
LOC: YASAS 22:25 → Y3N 23:14
PROVIDERS: ADMIT Allergy & Immunology; ATTEND Allergy & Immunology
PROC: HZ2ZZZZ Detoxification Services for Substance Abuse Treatment (ICD-10-PCS; principal; 2022-05-27)
DX: F13.230 Sedative, hypnotic or anxiolytic dependence with withdrawal, uncomplicated (principal); F11.20 Opioid dependence, uncomplicated; F14.20 Cocaine dependence, uncomplicated; F17.210 Nicotine dependence, cigarettes, uncomplicated; F19.24 Other psychoactive substance dependence with psychoactive substance-induced mood disorder; F41.9 Anxiety disorder, unspecified; F43.10 Post-traumatic stress disorder, unspecified; B20 Human immunodeficiency virus [HIV] disease; B18.2 Chronic viral hepatitis C; Z88.1 Allergy status to other antibiotic agents
CPT/HCPCS: 36415; 80053; 81025; 85027; 86780; C9803-CS; U0003; U0005